=== PATIENT | male | born 1930 | race Caucasian/White ===

== ENCOUNTER 2016-11-05 13:15 | Inpatient (IN) | payer OTHER, MEDICARE ==
[~2016-11-05] VITALS: Ht 177.8 cm; Wt 72.3 kg
[~2016-11-05 13:15] MED LIST: ASPI325T PO; ATEN-102 PO; DILT60TA33 PO; LORTA5 PO; LOVA20TA PO; MILKSUS5 PO
[2016-11-05 13:29] VITALS: BP 152/69; PULSE 68; RESP 17; TEMP 98.2; O2SAT 96
[2016-11-05] MEDS ORDERED: PLAV75TA29 PO (13:39)
[2016-11-05] MEDS ORDERED: PRAV20TA2 PO (13:39)
[2016-11-05] MEDS ORDERED: AMLO5TAB2 PO (13:39)
[2016-11-05] MEDS ORDERED: ASPI325T PO (13:39)
[2016-11-05] MEDS ORDERED: ASPIRIN 81 MG CHEW TAB PO ONE (13:45)
[2016-11-05] MEDS ORDERED: SODIUM CHLORIDE 0.9% FLUSH 5 ML FLUSH IVF PRN ×2 (13:45→14:30)
--- NOTE | 2016-11-05 13:45 | PD ---
HPI Chief Complaint: Chest Pain Time Seen by Provider: 13:30 Travel History International Travel<30 days: No Contact w/Intl Traveler<30days: No Traveled to known affect area: No History of Present Illness HPI This patient complains of chest pain. He's had chest pain most days for the last 3 weeks. Location is low sternum in the center of the chest. Feels like an aching pressure. He is currently pain-free. Saw his primary physician today who sent him to the ER specifically called over to have him hospitalized for stress testing. He has not had any recent cardiac testing. Symptoms severity is moderate. No alleviating factors. PFSH Past Medical History Heart Rhythm Problems: No Cancer: No Cardiovascular Problems: Yes (AAA, BRADYCARDIA, CAROTID STENOSIS) High Cholesterol: Yes Chest Pain: No Congestive Heart Failure: No Cerebrovascular Accident: Yes Coronary Artery Disease: Yes Diabetes: No Diminished Hearing: Yes ([place]) Endocrine: No Gastrointestinal Disorders: Yes Genitourinary: No Hypertension: Yes Medical other: Yes (PVD, INCREASED BLOOD SUGARS, INSOMNIA) Musculoskeletal: No Neurologic: Yes Psychiatric: No Reproductive: No Respiratory: No Migraines: No Seizures: No Thyroid Disease: No Ulcer: No Tetanus Vaccination: > 5 Years Influenza Vaccination: Yes Past Surgical History Abdominal Surgery: Yes (APPY) Appendectomy: Yes Cardiac Surgery: Yes (CAROTID ARTERY SX RIGHT) Ear Surgery: No Eye Surgery: No Genitourinary Surgery: No Oral Surgery: No Pacemaker: No Thoracic Surgery: No Other Surgery: Yes Social History Alcohol Use: Yes (occasional beer) Tobacco Use: No (1987 QUIT) Substance Use: No Allergies-Medications (Allergen,Severity, Reaction): Coded Allergies: No Known Allergies (Unverified , 11/05/16) Reported Meds & Prescriptions Reported Meds & Active Scripts Active Reported Pravastatin 20 Mg Tab 20 Mg PO DAILY Plavix (Clopidogrel Bisulfate) 75 Mg Tab 75 Mg PO DAILY Aspirin 325 Mg Tab 325 Mg PO DAILY Amlodipine (Amlodipine Besylate) 5 Mg Tab 5 Mg PO DAILY Review of Systems General / Constitutional: No: Fever Eyes: No: Visual changes HENT: No: Headaches Cardiovascular: Positive: Chest Pain or Discomfort Respiratory: No: Shortness of Breath Gastrointestinal: No: Abdominal Pain Genitourinary: No: Dysuria Musculoskeletal: No: Pain Skin: No Rash Neurologic: No: Weakness Psychiatric: No: Depression Endocrine: No: Polydipsia Hematologic/Lymphatic: No: Easy Bruising Physical Exam Narrative GENERAL: Well-nourished, well-developed patient in no apparent distress. SKIN: Warm and dry. HEAD: Atraumatic. Normocephalic. EYES: Pupils equal and round. No scleral icterus. No injection or drainage. ENT: No nasal bleeding or discharge. Mucous membranes pink and moist. NECK: Trachea midline. No JVD. CARDIOVASCULAR: Regular rate and rhythm. No murmur appreciated. RESPIRATORY: No accessory muscle use. Clear to auscultation. Breath sounds equal bilaterally. GASTROINTESTINAL: Abdomen soft, non-tender, nondistended. Hepatic and splenic margins not palpable. MUSCULOSKELETAL: No obvious deformities. No clubbing. No cyanosis. No edema. NEUROLOGICAL: Awake and alert. No obvious cranial nerve deficits. Motor grossly within normal limits. Normal speech. PSYCHIATRIC: Appropriate mood and affect; insight and judgment normal. Data Data Last Documented VS Vital Signs Date Time Temp Pulse Resp B/P Pulse Ox O2 Delivery O2 Flow Rate FiO2 11/05/16 13:47 96 Room Air 11/05/16 13:29 98.2 68 17 152/69 Orders Basic Metabolic Panel (Bmp) (11/05/16 13:34) Ckmb (Isoenzyme) Profile (11/05/16 13:34) Complete Blood Count With Diff (11/05/16 13:34) Prothrombin Time / Inr (Pt) (11/05/16 13:34) Act Partial Throm Time (Ptt) (11/05/16 13:34) Troponin I (11/05/16 13:34) Chest, Single Ap (11/05/16 13:34) Ecg Monitoring (11/05/16 13:34) Iv Access Insert/Monitor (11/05/16 13:34) Oximetry (11/05/16 13:34) Aspirin Chew (Aspirin Chew) (11/05/16 13:45) Sodium Chloride 0.9% Flush (Ns Flush) (11/05/16 13:45) Place In Observation (11/05/16 14:25) Activity Bed Rest With Brp (11/05/16 14:25) Vital Signs (Adult) Q4H (11/05/16 14:25) Cardiac Rhythm .As Directed (11/05/16 14:25) ^ Notify Dr: Other .PRN (11/05/16 14:25) ^ Notify Dr. Parameters (11/05/16 14:25) Resp Oxygen Nasal Cannula (11/05/16 ) Diet Heart Healthy (11/05/16 Dinner) Ckmb (Isoenzyme) Profile (11/05/16 16:40) Ckmb (Isoenzyme) Profile (11/05/16 19:40) Troponin I (11/05/16 16:40) Troponin I (11/05/16 19:40) Electrocardiogram (11/05/16 16:40) Electrocardiogram (11/05/16 19:40) ^ Obtain (11/05/16 14:25) Sodium Chloride 0.9% Flush (Ns Flush) (11/05/16 14:30) Sodium Chloride 0.9% Flush (Ns Flush) (11/05/16 21:00) Acetaminophen (Tylenol) (11/05/16 14:30) Acetamin-Hydrocod 325-7.5 Mg ([place] 7.5 (11/05/16 14:30) Morphine Inj (Morphine Inj) (11/05/16 14:30) Ondansetron Inj (Zofran Inj) (11/05/16 14:30) Nitroglycerin Sl (Nitrostat Sl) (11/05/16 14:30) Aspirin (Aspirin) (11/06/16 09:00) Temazepam (Restoril) (11/05/16 14:30) Scd Bilateral/Knee High YESSI.BID (11/05/16 14:25) Bart Bilateral/Knee High YESSI.QSHIFT (11/05/16 14:25) Npo After Midnight W/ Po Meds (11/06/16 Breakfast) Admit Order (Ed Use Only) (11/05/16 14:26) Admit Order (Ed Use Only) (11/05/16 14:29) Labs Laboratory Tests Test 11/05/16 13:40 White Blood Count 8.1 TH/MM3 Red Blood Count 4.63 MIL/MM3 Hemoglobin 13.7 GM/DL Hematocrit 41.2 % Mean Corpuscular Volume 88.9 FL Mean Corpuscular Hemoglobin 29.7 PG Mean Corpuscular Hemoglobin 33.3 % Concent Red Cell Distribution Width 12.7 % Platelet Count 215 TH/MM3 Mean Platelet Volume 9.6 FL Neutrophils (%) (Auto) 73.1 % Lymphocytes (%) (Auto) 16.6 % Monocytes (%) (Auto) 8.0 % Eosinophils (%) (Auto) 1.7 % Basophils (%) (Auto) 0.6 % Neutrophils # (Auto) 6.1 TH/MM3 Lymphocytes # (Auto) 1.3 TH/MM3 Monocytes # (Auto) 0.6 TH/MM3 Eosinophils # (Auto) 0.1 TH/MM3 Basophils # (Auto) 0.0 TH/MM3 CBC Comment DIFF FINAL Differential Comment Prothrombin Time 9.9 SEC Prothromb Time International 0.9 RATIO Ratio Activated Partial 26.0 SEC Thromboplast Time Sodium Level 143 MEQ/L Potassium Level 4.0 MEQ/L Chloride Level 107 MEQ/L Carbon Dioxide Level 28.7 MEQ/L Anion Gap 7 MEQ/L Blood Urea Nitrogen 13 MG/DL Creatinine 0.75 MG/DL Estimat Glomerular Filtration 99 ML/MIN Rate Random Glucose 83 MG/DL Calcium Level 8.4 MG/DL Total Creatine Kinase 74 U/L Troponin I LESS THAN 0.02 NG/ML [facility] Medical Decision Making Medical Screen Exam Complete: Yes Emergency Medical Condition: Yes Medical Record Reviewed: Yes Differential Diagnosis Differential diagnosis includes NM, angina, pericarditis, pleurisy, GERD, anxiety. Narrative Course I have reviewed the patient's electronic medical record. Reviewed his physicians history and physical from today IV placed I reviewed the EKG which shows sinus rhythm but no ST elevation I reviewed the chest x-ray shows no emergent findings Extended cardiac monitoring shows sinus rhythm without ectopy CBC is normal Metabolic profile is normal CK is normal Troponin is normal Coagulation studies are normal He took full strength aspirin earlier today He'll be a 23 hour observation in the chest pain center to rule out cardiac cause of his symptoms. I reviewed the hospitalist who agrees Diagnosis Primary Impression: Precordial chest pain Admitting Information Admitting Physician Requests: Observation Sohail Wright MD Nov 05, 2016 13:45
[2016-11-05 13:46] LABS: AUTOMATED NEUTROPHIL # 6.1 TH/MM3 (1.8-7.7); BASOPHIL % 0.6 % (0.0-2.0); EOSINOPHIL # 0.1 TH/MM3 (0-0.4); EOSINOPHIL % 1.7 % (0.0-4.0); HEMATOCRIT 41.2 % (39.0-51.0); HEMO FLAGS DIFF FINAL; LYMPH % 16.6 % (9.0-44.0); LYMPHOCYTE # 1.3 TH/MM3 (1.0-4.8); MEAN CELL VOLUME 88.9 FL (80.0-100.0); MEAN CORPUSCULAR HEMOGLOBIN 29.7 PG (27.0-34.0); MEAN CORPUSCULAR HGB CONC 33.3 % (32.0-36.0); NEUT % 73.1 % (16.0-70.0); PLATELET COUNT 215 TH/MM3 (150-450); RED BLOOD COUNT 4.63 MIL/MM3 (4.50-5.90); RED CELL DISTRIBUTION WIDTH 12.7 % (11.6-17.2); WHITE BLOOD COUNT 8.1 TH/MM3 (4.0-11.0)
[2016-11-05 13:47] VITALS: O2SAT 96
[2016-11-05 13:53] LABS: CHLORIDE 107 MEQ/L (98-107); SODIUM (NA) 143 MEQ/L (136-145)
[2016-11-05 13:56] LABS: ANION GAP 7 MEQ/L (5-15); BICARBONATE 28.7 MEQ/L (21.0-32.0); BLOOD UREA NITROGEN 13 MG/DL (7-18)
[2016-11-05 13:58] LABS: INTERNATIONAL NORMALIZED RATIO 0.9 RATIO; PROTHROMBIN TIME - PATIENT 9.9 SEC (9.8-11.6)
[2016-11-05 13:59] LABS: GLOMERULAR FILTRATION RATE 99 ML/MIN (>89)
[2016-11-05 14:07] LABS: CREATINE KINASE 74 U/L (39-308)
--- NOTE | 2016-11-05 14:09 | RADHPO ---
EXAM DATE/TIME: 11/05/2016 14:03 [facility] COMPARISON: CHEST SINGLE AP, October 22, 2013, 12:48. INDICATIONS : Short of breath MEDICAL HISTORY : None. SURGICAL HISTORY : None. ENCOUNTER: Initial ACUITY: 3 days PAIN SCORE: 3/10 LOCATION: Bilateral chest FINDINGS: A single view of the chest demonstrates the lungs to be symmetrically aerated without evidence of mas s, infiltrate or effusion. The lungs are hyperaerated. Questionable nipple shadow projects over the r ight lower lung. The cardiomediastinal contours are unremarkable. Osseous structures are intact. CONCLUSION: 1. No acute pulmonary infiltrates. 2. Possible nipple shadow projected over the right lower lung. If clinically indicated, recommend a f ollowup two-view chest x-ray with nipple markers Rex Linn MD on November 05, 2016 at 14:06 Board Certified Radiologist. This report was verified electronically.
[2016-11-05] MEDS ORDERED: ONDANSETRON HCL 4 MG/2 ML VIAL IV PRN (14:30)
[2016-11-05] MEDS ORDERED: ACETAMINOPHEN/HYDROcodone 325 MG/7.5 MG TAB PO PRN (14:30)
[2016-11-05] MEDS ORDERED: MORPHINE SULFATE 4 MG/ML INJ IV PRN (14:30)
[2016-11-05] MEDS ORDERED: TEMAZEPAM 15 MG CAP PO PRN (14:30)
[2016-11-05] MEDS ORDERED: ACETAMINOPHEN 500 MG CPLT PO PRN (14:30)
[2016-11-05] MEDS ORDERED: NITROGLYCERIN 0.4 MG SL 25 TABS/BTL SL PRN (14:30)
[2016-11-05 15:31] VITALS: BP 141/64; PULSE 71; RESP 17; O2SAT 98
[2016-11-05 17:51] LABS: CREATINE KINASE 74 U/L (39-308)
--- NOTE | 2016-11-05 18:28 | HHI.HP ---
[facility]ician Zacarias Michael Do, MD Admission Diagnosis chest pain Diagnoses: (1) Chest pain Diagnosis: Principal (2) Hypertension Diagnosis: Secondary (3) Hyperlipidemia Diagnosis: Secondary Chief Complaint: Chest pain Travel History International Travel<30 Days: No Contact w/Intl Traveler <30 Da: No Traveled to Known Affected Are: No History of Present Illness 86 year-old Arabic male with known history of hypertension, carotid stenosis, history of stroke, peripheral vascular disease, hyperlipidemia who presented to hospital at the request of his primary medical doctor because of chest discomfort. Patient was at his doctor's office today for his normal check up. He notified his primary medical doctor that is been having pain in his chest for over the last 2-3 weeks. He describes it as a sharp pain in the middle part of his chest/epigastric region. Lasting for a couple seconds at a time. He states that it can happen when he is exerting himself. His has happened why he is lying down. He denies any nausea, vomiting, diaphoresis, shortness of breath, dyspnea. Because of the patient's risk factors his primary medical doctor sent him to the hospital to get a stress test. Patient did come to emergency department and because of that patient's primary doctors request was recommended observation chest pain center. At the time evaluating the patient he is asymptomatic. Review of Systems Constitutional: DENIES: Diaphoretic episodes, Fatigue, Fever, Weight gain, Weight loss, Chills, Change in appetite, Night Sweats Eyes: DENIES: Blurred vision, Diplopia, Eye inflammation, Eye pain, Vision loss , Double Vision Ears, nose, mouth, throat: DENIES: Vertigo, Nasal discharge, Throat pain, Ear Pain, Running Nose, Sinus Pain Respiratory: DENIES: Apneas, Cough, Snoring, Wheezing, Hemoptysis, Sputum production, Shortness of breath Cardiovascular: COMPLAINS OF: Chest pain, DENIES: Palpitations, Syncope, Dyspnea on Exertion, Lower Extremity Edema, Orthopnea Gastrointestinal: DENIES: Abdominal pain, Black stools, Bloody stools, Constipation, Diarrhea, Nausea, Vomiting, Difficulty Swallowing, Anorexia Neurologic: DENIES: Abnormal gait, Headache, Localized weakness, Paresthesias, Seizures, Speech Problems, Tremor, Poor Balance Psychiatric: DENIES: Anxiety, Confusion, Mood changes, Depression Past Family Social History Past Medical History Hypertension Hyperlipidemia Carotid stenosis History of stroke Abdominal aortic aneurysm Peripheral vascular disease Past Surgical History Appendectomy Carotid endarterectomy right side Reported Medications Reported Meds & Active Scripts Active Reported Pravastatin 20 Mg Tab 20 Mg PO DAILY Plavix (Clopidogrel Bisulfate) 75 Mg Tab 75 Mg PO DAILY Aspirin 325 Mg Tab 325 Mg PO DAILY Amlodipine (Amlodipine Besylate) 5 Mg Tab 5 Mg PO DAILY Allergies: Coded Allergies: No Known Allergies (Unverified , 11/05/16) Family History Reviewed and patient states that family lived into their 90s. Social History Patient quit smoking in 1986, he states that 10 pack a cigarettes a last him a week ever since he was 17 years old. Denies any alcohol or illicit drugs. Physical Exam Vital Signs Vital Signs Date Time Temp Pulse Resp B/P Pulse Ox O2 Delivery O2 Flow Rate FiO2 11/05/16 17:23 Room Air 11/05/16 15:31 71 17 141/64 98 Room Air 11/05/16 13:47 96 Room Air 11/05/16 13:29 98.2 68 17 152/69 96 Room Air Physical Exam GENERAL: Well-developed, well-nourished, in no acute distress. alert and orientated HEENT: Head is normocephalic without any lesions or masses noted. Facial features are symmetric. Eyes: Pupils equal round reactive to light. Extraocular muscles are intact. Conjunctivae were clear. Oropharyngeal: Pharynx without any erythema edema. Tongue is midline without deviation. Buccal mucosa is moist without any masses or lesions NECK: Supple without any masses. Trachea midline no deviation. No JVD, no bruits are appreciated CARDIAC: Regular rhythm, regular rate. S1/S2 are heard. No murmurs gallops or rubs. LUNGS: Clear to auscultation bilaterally. No wheeze, rhonchi or rales. No use of accessory muscles on inspiration or expiration. ABDOMEN: Soft, nontender. Nondistended. Bowel sounds heard in all 4 quadrants. No organomegaly or masses. Negative rebound, negative guarding EXTREMITIES: No edema, pulses are equal bilaterally. No cyanosis or clubbing NEUROLOGY: Mood and affect appear appropriate. Cranial nerves II through XII grossly intact. Muscle strength 5/5 in upper and lower extremities bilaterally. Deep tendon reflexes are 2+ in upper and lower extremities bilaterally. Laboratory Laboratory Tests Test 11/05/16 11/05/16 13:40 17:15 White Blood Count 8.1 Red Blood Count 4.63 Hemoglobin 13.7 Hematocrit 41.2 Mean Corpuscular Volume 88.9 Mean Corpuscular Hemoglobin 29.7 Mean Corpuscular Hemoglobin 33.3 Concent Red Cell Distribution Width 12.7 Platelet Count 215 Mean Platelet Volume 9.6 Neutrophils (%) (Auto) 73.1 Lymphocytes (%) (Auto) 16.6 Monocytes (%) (Auto) 8.0 Eosinophils (%) (Auto) 1.7 Basophils (%) (Auto) 0.6 Neutrophils # (Auto) 6.1 Lymphocytes # (Auto) 1.3 Monocytes # (Auto) 0.6 Eosinophils # (Auto) 0.1 Basophils # (Auto) 0.0 CBC Comment DIFF FINAL Differential Comment Prothrombin Time 9.9 Prothromb Time International 0.9 Ratio Activated Partial 26.0 Thromboplast Time Sodium Level 143 Potassium Level 4.0 Chloride Level 107 Carbon Dioxide Level 28.7 Anion Gap 7 Blood Urea Nitrogen 13 Creatinine 0.75 Estimat Glomerular Filtration 99 Rate Random Glucose 83 Calcium Level 8.4 Total Creatine Kinase 74 74 Troponin I LESS THAN 0.02 LESS THAN 0.02 Result Diagram: 11/05/16 1340 11/05/16 1340 Imaging Last Impressions Chest X-Ray 11/05/16 1334 Signed Impressions: Service Date/Time: Saturday, November 05, 2016 14:03 - CONCLUSION: 1. No acute pulmonary infiltrates. 2. Possible nipple shadow projected over the right lower lung. If clinically indicated, recommend a followup two-view chest x-ray with nipple markers Rex Linn MD Assessment and Plan Assessment and Plan Chest pain, atypical Patient with increased risk factors to include age, male, hypertension, hyperlipidemia, history of tobacco use We'll order and monitor serial cardiac enzymes rule out any acute coronary event Continue monitor serial EKGs for any changes Continue aspirin and nitroglycerin as needed We'll pursue nuclear stress test in the morning to rule out any underlying ischemia Hypertension Continue home medications Hyperlipidemia Continue statin DVT prevention Sequential compression devices Written by Sohail Maguire PA-C, acting as scribe for Dr. Sims on 11/05/16 at 1800. The documentation accurately reflects the work and decisions performed face-to- face by Dr. Sims on 11/05/16 at 1800. Problem Qualifiers (1) Chest pain: Qualified Code: R07.2 - Precordial pain (2) Hypertension: Qualified Code: I15.9 - Secondary hypertension (3) Hyperlipidemia: Qualified Code: E78.5 - Hyperlipidemia, unspecified hyperlipidemia type Sohail Maguire Nov 05, 2016 18:28
[2016-11-05 20:00] VITALS: BP 148/63; PULSE 66; PULSE 69; RESP 18; TEMP 96.3; O2SAT 97
[2016-11-05 20:30] LABS: CREATINE KINASE 81 U/L (39-308)
[2016-11-05] MEDS: SODIUM CHLORIDE 0.9% FLUSH 5 ML FLUSH IVF SCH (20:32)
[2016-11-06] VITALS (9 sets, daily range): BP systolic 123–155; BP diastolic 65–73; PULSE 59–73; RESP 16–20; TEMP 96.3–97.6; O2SAT 95–98
[2016-11-06] MEDS ORDERED: REGADENOSON INJ 0.4 MG/5 ML SYR IV ONE (09:35)
[2016-11-06] MEDS: SODIUM CHLORIDE 0.9% FLUSH 5 ML FLUSH IVF SCH ×2 (10:26→21:29)
[2016-11-06] MEDS: ASPIRIN 325 MG TAB PO SCH (10:26)
[2016-11-06] MEDS: CLOPIDOGREL 75 MG TAB PO SCH (10:26)
[2016-11-06] MEDS: PRAVASTATIN SOD 20 MG TAB PO SCH (10:26)
[2016-11-06] MEDS: amLODIPine BESYLATE 5 MG TAB PO SCH (10:27)
--- NOTE | 2016-11-06 10:52 | RADHPO ---
EXAM DATE/TIME: 11/06/2016 09:43 [facility] COMPARISON: MYOCARDIAL PERF PHARM SPECT, GATED W/EF, October 26, 2013, 9:08. CHEST SINGLE AP, November 05, 2016, 14:03. INDICATIONS : Mid chest pain for two weeks. Angina. DOSE: 26.1 mCi Tc99m Myoview at stress. 8.5 mCi Tc99m Myoview at rest. 0.4 mg Lexiscan STRESS SYMPTOMS: Shortness of breath. EJECTION FRACTION: 31% MEDICAL HISTORY : Aneurysm, abdominal. Hypertension. Stroke. SURGICAL HISTORY : Appendectomy. Carotid endarterectomy. ENCOUNTER: Initial ACUITY: 2 weeks PAIN SCALE: 4/10 LOCATION: Midsternal chest TECHNIQUE: The patient underwent pharmacologic stress with infusion of prescribed dose. Continuous ECG tracing was monitored during stress. Gated SPECT imaging was performed after stress and conventional SPECT i maging was performed at rest. The examination was performed on a SPECT/CT scanner, both attenuation and non-corrected datasets were reviewed. FINDINGS: DISTRIBUTION: The maximum perfused segment at stress is in the septal wall. PERFUSION STUDY: Areas of summed stress score of 11. There is a moderate sized partially reversible anterior and apica l wall defect. GATED STUDY: Akinesis involving the apex and distal anterior wall. CONCLUSION: 1. Moderate sized partially reversible defect involving the anterior and apical kinsey. 2. Akinesis involving the distal anterior and apical kinsey with decreased calculated ejection fractio n of 31%. RISK CATEGORY: Intermediate (1-3% Annual Mortality Rate) Bk Salazar MD on November 06, 2016 at 10:45 Board Certified Radiologist. This report was verified electronically.
--- NOTE | 2016-11-06 11:17 | HHI.PR ---
Subjective Remarks Patient seen and examined today. Patient denies any recurrent chest pain. Objective Vitals Vital Signs Date Time Temp Pulse Resp B/P Pulse Ox O2 Delivery O2 Flow Rate FiO2 11/06/16 10:30 61 11/06/16 08:00 97.6 73 18 138/73 96 11/06/16 04:00 96.3 70 18 127/70 96 11/06/16 00:00 96.6 71 18 123/68 96 11/05/16 20:00 69 11/05/16 20:00 96.3 66 18 148/63 97 11/05/16 17:23 Room Air 11/05/16 15:31 71 17 141/64 98 Room Air 11/05/16 13:47 96 Room Air 11/05/16 13:29 98.2 68 17 152/69 96 Room Air I/O 11/05/16 11/05/16 11/05/16 11/06/16 11/06/16 11/06/16 07:00 15:00 23:00 07:00 15:00 23:00 Intake Total 100 ml Balance 100 ml Intake Oral 100 ml Result Diagram: 11/05/16 1340 11/05/16 1340 Objective Remarks GENERAL: Well-developed, well-nourished, in no acute distress. alert and orientated HEENT: Head is normocephalic without any lesions or masses noted. Facial features are symmetric. Eyes: Extraocular muscles are intact. Conjunctivae were clear. NECK: Supple without any masses. Trachea midline no deviation. No JVD, CARDIAC: Regular rhythm, regular rate. S1/S2 are heard. No murmurs gallops or rubs. LUNGS: Clear to auscultation bilaterally. No wheeze, rhonchi or rales. No use of accessory muscles on inspiration or expiration. ABDOMEN: Soft, nontender. Nondistended. Bowel sounds heard in all 4 quadrants. No organomegaly or masses. Negative rebound, negative guarding EXTREMITIES: No edema, pulses are equal bilaterally. No cyanosis or clubbing NEUROLOGY: Mood and affect appear appropriate. Cranial nerves II through XII grossly intact. Moving all extremities, speech is clear Urinary Catheter: No Vascular Central Line Catheter: No A/P Assessment and Plan Chest pain, atypical Patient with increased risk factors to include age, male, hypertension, hyperlipidemia, history of tobacco use Serial cardiac enzymes were performed and reviewed by myself which did not indicate any acute coronary event Serial EKGs were performed which were reviewed and show sinus rhythm without any changes Continue aspirin and nitroglycerin as needed Nuclear stress test was performed which did indicate a moderate size partially reversible defect involving the anterior and apical kinsey. Akinesis involving the distal anterior apical wall with decreased ejection fraction 31%. Intermediate risk Discussed stress test findings with patient, he is deferring any invasive procedures at this time. He would like to follow-up with his primary medical doctor to have outpatient referral to his 's patient day coordinator Dr. Costa for further evaluation and management. Discuss with patient's primary medical doctor Dr. Michael, who indicates that the patient should remain in the hospital to receive cardiology consultation and workup while he is here. If he does not want to do so then she indicates that the patient should sign out AGAINST MEDICAL ADVICE. Consult cardiology for further recommendations and possible intervention Hypertension Continue home medications Hyperlipidemia Continue statin DVT prevention Sequential compression devices Written by Sohail Maguire PA-C, acting as scribe for Dr. Tapia on 11/06/16 at 1200. The documentation accurately reflects the work and decisions performed face-to- face by Dr. Tapia on 11/06/16 at 1200. I (DR. TAPIA) DISCUSSED AGAIN WITH PATIENT AROUND 2 P.M. ON 11/06 AND SHOWED HIM HIS STRESS TEST, EXPLAINED HE HAD LIKELY ALREADY HAD A HEART ATTACK IN THE PAST, THAT THERE IS POSSIBILITY OF PREVENTING ANOTHER ONE WITH CARDIAC CATH AND STENT, BUT THIS CAN ONLY BE DONE AT THE [facility]. REGARDLESS HE NEEDS CARDIOLOGY CONSULTATION. PATIENT NOW AGREES TO SEEING CARDIOLOGY FOR CONSIDERATION OF CATH. PAGE PLACED TO DR. MIKE LEROY WHO IS DISABILITY BENEFITS SPECIALIST, PATIENT FOR TRANSFER TO [facility]. Sohail Maguire Nov 06, 2016 11:17 Zahida Tapia MD Nov 07, 2016 09:27
--- NOTE | 2016-11-06 21:07 | EKG ---
Date Performed: 11/05/2016 Time Performed: 19:55:50 PTAGE: 86 years EKG: Sinus rhythm . Normal ECG PREVIOUS TRACING : 11/05/2016 17.21 DOCTOR: Rikki Rhodes Interpretating Date/Time 11/06/2016 21:03:08
--- NOTE | 2016-11-06 21:12 | EKG ---
Date Performed: 11/05/2016 Time Performed: 17:21:46 PTAGE: 86 years EKG: Sinus rhythm with PAC(s). Extensive ST-T changes are nonspecific Borderline ECG PREVIOUS TRACING : 11/05/2016 13.20 DOCTOR: Rikki Rhodes Interpretating Date/Time 11/06/2016 21:05:36
--- NOTE | 2016-11-06 21:20 | EKG ---
Date Performed: 11/05/2016 Time Performed: 13:20:02 PTAGE: 86 years EKG: Sinus rhythm . Inferior/lateral T wave changes are nonspecific Borderline ECG PREVIOUS TRACING : 10/23/2013 01.21 DOCTOR: Rikki Rhodes Interpretating Date/Time 11/06/2016 21:10:17
[2016-11-07] VITALS (9 sets, daily range): BP systolic 129–153; BP diastolic 60–75; PULSE 64–92; RESP 16–18; TEMP 97.2–97.7; O2SAT 93–98
[2016-11-07] MEDS: CLOPIDOGREL 75 MG TAB PO SCH (09:06)
[2016-11-07] MEDS: SODIUM CHLORIDE 0.9% FLUSH 5 ML FLUSH IVF SCH ×3 (09:06→21:00)
[2016-11-07] MEDS: PRAVASTATIN SOD 20 MG TAB PO SCH (09:06)
[2016-11-07] MEDS: amLODIPine BESYLATE 5 MG TAB PO SCH (09:06)
[2016-11-07] MEDS: ASPIRIN 325 MG TAB PO SCH (09:06)
--- NOTE | 2016-11-07 09:56 | MB ---
cc: TIM VARGAS DO DATE OF CONSULTATION: 11/07/2016 REASON FOR CONSULTATION Chest pain with abnormal stress test. HISTORY OF PRESENT ILLNESS Naveen Cedeno is a pleasant 86-year-old male who presented to [facility] in [place] on November 05, 2016 due to chest pain. He originally told his primary care physician that he had chest pain on and off for 2-3 weeks. He describes it is a sharp pain in the middle of his chest lasting seconds to occasionally a minute. He states that it can happen at any time including when he exerts himself for when he is lying down. He denies nausea, vomiting, diaphoresis, shortness of breath with the pain. Because of his risk factors his primary care physician requested a stress test. While he was in [place] he underwent a pharmacologic nuclear stress test which showed a moderate size partially reversible defect involving the anterior and apical kinsey, akinesis involving the distal anterior and apical kinsey with an ejection fraction of 31% read as an intermediate risk stress test. At that time there was a question on whether he would like to have any intervention done and at that time he felt that he could follow-up with his 's integration director, Dr. Costa, for further evaluation and management. When they discussed with the patient's primary care physician about this option she said that he would have to leave against medical advice. He decided that he would be transferred to the [facility] for possible cardiology consult to discuss his options. I saw the patient this morning and he was no longer having chest pain at that time. PAST MEDICAL HISTORY 1. Hypertension. 2. Hyperlipidemia. 3. Carotid stenosis. 4. History of stroke. 5. Abdominal aortic aneurysm. 6. Peripheral vascular disease. PAST SURGICAL HISTORY 1. Appendectomy. 2. Right-sided carotid endarterectomy. ALLERGIES No known drug allergies. MEDICATIONS 1. Aspirin 325 mg daily. 2. Plavix 75 mg daily. 3. Pravastatin 20 mg daily. 4. Norvasc 5 mg daily. FAMILY HISTORY Denies premature coronary artery disease or sudden cardiac within the family. SOCIAL HISTORY The patient states that he previously smoked starting at the age of 17 then quit in 1986. He denies alcohol or illicit drug abuse. REVIEW OF SYSTEMS 14 systems were reviewed including osteopathic. Pertinent positives and negatives as above, otherwise negative. PHYSICAL EXAMINATION VITAL SIGNS: Temperature 97.3, heart rate 70, blood pressure 131/74, respirations 16, pulse ox 97% on room air. GENERAL: In general the patient appears well and in no acute distress, alert, awake and oriented x3. HEENT: Extraocular muscles intact. Mucous membranes are moist. NECK: Supple. No JVD at 45 degrees. No carotid bruits heard bilaterally. Carotid upstroke is brisk in nature. HEART: Regular rate and rhythm. Positive first and second heart sounds. No murmurs, gallops or rubs. PMI is nondisplaced. LUNGS: Clear to auscultation bilaterally. No wheezes, rales or rhonchi. ABDOMEN: Soft, nontender, nondistended. No organomegaly noted. EXTREMITIES: No clubbing, cyanosis or edema. Femoral and distal pulses intact bilaterally. NEUROLOGIC: No focal deficits. SKIN: Warm, dry and intact. MUSCULOSKELETAL: Osteopathically no kyphoscoliosis, lordosis or paraspinal tender points. LABORATORY FINDINGS Hemoglobin 13.7, hematocrit 41.2, platelets 215. Potassium 4.0, BUN 13, creatinine 0.75. Troponin negative x3. Pharmacologic nuclear stress test (November 06, 2016): Moderate size partially reversible defect involving the anterior and apical kinsey, akinesis of the distal anterior and apical kinsey, ejection fraction 31%, read as an intermediate risk stress test. Electrocardiogram (November 05, 2016 at 1955): Sinus rhythm at 62 beats per minute, no significant ST or T-wave changes. IMPRESSIONS 1. Atypical chest pain for coronary insufficiency, although the patient has had episodes with exertion. 2. Abnormal pharmacologic nuclear stress test (November 06, 2016) with a moderate size partially reversible defect involving the anterior and apical kinsey, akinesis of these wall, ejection fraction 31%. 3. History of hypertension. 4. History of hyperlipidemia. 5. Peripheral artery disease with a history of carotid stenosis status post right-sided carotid endarterectomy. 6. History of stroke. 7. Abdominal aortic aneurysm of unknown size. 8. Remote tobacco abuse. RECOMMENDATIONS 1. Naveen Cedeno presented with chest pain and underwent a pharmacologic nuclear stress test showing an intermediate risk stress test and anterior and apical possible ischemia. 2. I did speak to him at length about his options including medical management versus undergoing cardiac catheterization to define his coronary anatomy. He is agreeable to undergo cardiac catheterization and possible intervention if needed. 3. He understands the risks, benefits and alternatives and signed consent as such. 4. He will be n.p.o. this morning and undergo cardiac catheterization later today. 5. Further recommendations will be made based on coronary visualization. Thank you for allowing me to see Naveen Cedeno. If there are any questions, please do not hesitate to call. Tim Vargas DO VGP/BT /9:04 AM /9:39 AM
--- NOTE | 2016-11-07 09:57 | HHI.PR ---
Subjective Remarks resting comfortably with no distress. had some chest pain last night which has resolved. has slight dizziness. Objective Vitals Vital Signs Date Time Temp Pulse Resp B/P Pulse Ox O2 Delivery O2 Flow Rate FiO2 11/07/16 04:09 97.3 70 16 131/74 97 11/07/16 00:16 93 11/06/16 23:44 97.2 73 16 155/68 98 11/06/16 20:38 59 11/06/16 20:13 97.1 62 18 138/65 95 11/06/16 19:26 96 11/06/16 12:00 97.5 72 20 133/72 97 11/06/16 10:30 61 I/O 11/06/16 11/06/16 11/06/16 11/07/16 11/07/16 11/07/16 07:00 15:00 23:00 07:00 15:00 23:00 Intake Total 310 ml 0 ml Output Total 100 ml Balance 310 ml -100 ml Intake Oral 310 ml 0 ml Output Urine Total 100 ml # Bowel Movements 0 Result Diagram: 11/05/16 1340 11/05/16 1340 Imaging Last Impressions Myocardial Perfusion Scan Nuc Med 11/06/16 0600 Signed Impressions: Service Date/Time: October 09:43 - CONCLUSION: 1. Moderate sized partially reversible defect involving the anterior and apical kinsey. 2. Akinesis involving the distal anterior and apical kinsey with decreased calculated ejection fraction of 31%%. RISK CATEGORY: Intermediate (1-3%% Annual Mortality Rate) Bk Salazar MD Chest X-Ray 11/05/16 1334 Signed Impressions: Service Date/Time: Saturday, November 05, 2016 14:03 - CONCLUSION: 1. No acute pulmonary infiltrates. 2. Possible nipple shadow projected over the right lower lung. If clinically indicated, recommend a followup two-view chest x-ray with nipple markers Rex Linn MD Objective Remarks GENERAL: This is a well-nourished, well-developed patient, in no apparent distress. CARDIOVASCULAR: Regular rate and regular rhythm without murmurs, gallops, or rubs. RESPIRATORY: Clear to auscultation. Breath sounds equal bilaterally. No wheezes , rales, or rhonchi. GASTROINTESTINAL: Abdomen soft, non-tender, nondistended. Normal, active bowel sounds MUSCULOSKELETAL: Extremities without clubbing, cyanosis, or edema. NEURO: Alert & Oriented x4 to person, place, time, situation. Moves all ext x4 Procedures none Medications and IVs Current Medications Aspirin (Aspirin Chew) 162 mg ONCE ONCE PO ; Start 11/05/16 at 13:45; Stop at 13:45; Status DC IV Flush (NS Flush) 2 ml UNSCH PRN IVF FLUSH AFTER USING IV ACCESS; Start 11/05 at 13:45; Stop 11/05/16 at 14:39; Status DC IV Flush (NS Flush) 2 ml UNSCH PRN IVF FLUSH AFTER USING IV ACCESS; Start 11/05 at 14:30 IV Flush (NS Flush) 2 ml BID IVF Last administered on 11/07/16 09:06; Start at 21:00 Acetaminophen (Tylenol) 500 mg Q4H PRN PO HEADACHE; Start 11/05/16 at 14:30 Acetaminophen/ Hydrocodone Bitart (Adkins 7.5-325 Mg) 1 tab Q4H PRN PO PAIN SCALE 1 TO 7; Start 11/05/16 at 14:30 Morphine Sulfate (Morphine Inj) 2 mg Q4H PRN IV PAIN SCALE 8 TO 10; Start 11/05 at 14:30 Ondansetron HCl (Zofran Inj) 4 mg Q6H PRN IV NAUSEA; Start 11/05/16 at 14:30 Nitroglycerin (Nitrostat Sl) 0.4 mg Q5M PRN SL CHEST PAIN; Start 11/05/16 at 14 :30 Aspirin (Aspirin) 325 mg DAILY PO Last administered on 11/07/16 09:06; Start 11/06/16 at 09:00 Temazepam (Restoril) 15 mg HS PRN PO INSOMNIA; Start 11/05/16 at 14:30 Amlodipine Besylate (Norvasc) 5 mg DAILY PO Last administered on 11/07/16 09: 06; Start 11/06/16 at 09:00 Clopidogrel Bisulfate (Plavix) 75 mg DAILY PO Last administered on 11/07/16 09 :06; Start 11/06/16 at 09:00 Pravastatin Sodium (Pravachol) 20 mg DAILY PO Last administered on 11/07/16 09 :06; Start 11/06/16 at 09:00 Regadenoson (Lexiscan Inj) 0.4 mg STK-MED ONCE IV Last administered on 09:35; Start 11/06/16 at 09:35; Stop 11/06/16 at 09:36; Status DC A/P Assessment and Plan A/P Chest pain, atypical Patient with increased risk factors to include age, male, hypertension, hyperlipidemia, history of tobacco use Serial cardiac enzymes negative. Continue aspirin and nitroglycerin as needed Nuclear stress test was performed which did indicate a moderate size partially reversible defect involving the anterior and apical kinsey. Akinesis involving the distal anterior apical wall with decreased ejection fraction 31%. Intermediate risk -cardiology consulted- awaiting recommendations. Hypertension Continue home medications Hyperlipidemia Continue statin DVT prevention Sequential compression devices Discharge Planning pending cardiology recommendations. Destiny Hernandez MD Nov 07, 2016 09:57
[2016-11-07] MEDS ORDERED: HEPARIN-NS/PF INJ 500 ML ONE (10:13)
[2016-11-07] MEDS ORDERED: MIDAZOLAM HCL 2 MG/2 ML VIAL ONE (10:15)
[2016-11-07] MEDS ORDERED: HEPARIN SODIUM - IV 10,000 UNITS/10 ML VIAL ONE (10:23)
[2016-11-07] MEDS ORDERED: NITROGLYCERIN INJ 5 ML ONE (10:23)
[2016-11-07] MEDS ORDERED: VERAPAMIL HCL 5 MG/2 ML VIAL ONE (10:24)
[2016-11-07] MEDS ORDERED: SODIUM CHLORIDE 0.9% FLUSH 5 ML FLUSH IVF PRN (11:30)
[2016-11-07] MEDS ORDERED: IOHEXOL 350 MG/ML 50 ML BTL (for Cath Lab) OTHER ONE (11:33)
--- NOTE | 2016-11-07 11:46 | MA ---
cc: TIM VARGAS DO DATE 11/07/2016 PROCEDURE Left heart catheterization, coronary angiogram. PREPROCEDURE DIAGNOSIS Chest pain, abnormal stress test. POSTPROCEDURE DIAGNOSIS Multivessel coronary artery disease. MEDICATIONS 1. Versed 1/2 mg 2. Fentanyl 25 mcg 3. Verapamil 2.5 mg 4. Nitro 200 mcg 5. Heparin 2800 units CONTRAST 40 cc FLUOROSCOPY 3.3 minutes ESTIMATED BLOOD LOSS 10 cc PROCEDURAL SUMMARY Naveen Cedeno is a pleasant 86-year-old male who originally presented to [place] emergency room due to having chest pain. He called his primary care physician who suggested that he have a stress test and presented to the emergency room. His stress test in the emergency room showed anterior lateral ischemia and at that time Naveen was unsure if he would want a cardiac catheterization, but felt that he should at least see cardiology for consideration of cardiac catheterization. When I saw him this morning, I explained all the risks, benefits and alternatives and he decided that he should at least undergo cardiac catheterization to define his coronary anatomy. He signed consents as such. He was brought to the lab and prepped in the usual sterile fashion. The right radial artery was accessed using a modified Seldinger technique and placement of a slender 5/6 Terumo sheath. The sheath was easily aspirated and flushed. JR-4 was advanced over a J-wire to the ascending aorta. This was used to cross the aortic valve and LV pressures were measured. This was then pulled back across the aortic valve showing no significant gradient of the aortic stenosis. JR-4 was then used for selective angiography of the right coronary artery which is a small non-nondominant artery with a 70% stenosis proximally. JR-4 was then exchanged for a JL-3.5. This was used for selective angiography of the left coronary system. The left main has no significant disease and gives off an LAD and circumflex. The LAD proximally has a long diffuse 80-90% stenosis with heavy calcification. In the middle portion of the LAD, there appears to be a 50-60% stenosis. It also gives two major diagonals with the first one having a 50-60% stenosis ostially, but is a small vessel overall, the second diagonals has no significant disease. The left circumflex has tandem lesions in the proximal to mid section of 80-90% across the first obtuse marginal. It is a super dominant vessel with 70-80% distally before the PDA. The first obtuse marginal has diffuse 80% disease ostial to proximal. The JL-3.5 was then removed over a J-wire. Placement of a TR band was done and then removal of radial sheath and 10 cc of air was placed. The patient left the [employer] cardiovascularly stable. IMPRESSIONS 1. Chest pain with an abnormal stress test showing anterolateral ischemia. 2. Multivessel coronary artery disease. RECOMMENDATIONS 1. Because Naveen has a left dominant system and significant proximal disease of the left circumflex and LAD, I believe that he should at least undergo consideration of coronary artery bypass grafting. 2. I asked Marielos from CT surgery to see him in consultation. 3. We will obtain a 2-D echo to look at his overall left ventricular function, cardiac structure and possible valvopathies. 4. He will continue on aspirin and we will stop Plavix in case of cardiac surgery. 5. If turned down for surgery, we will discuss with him consideration of high risk multivessel coronary artery disease intervention versus medical management. Thank you for allowing me to see Naveen Ceedno. If there are any questions, please do not hesitate to call. Tim Vargas DO VGP/DJL /11:17 AM /11:37 AM
[2016-11-07] MEDS ORDERED: CHLORHEXIDINE GLUCONATE 4% SOLN 120 ML BTL TOPICAL SCH (13:30)
[2016-11-07] MEDS ORDERED: ceFAZolin 2 GM PREMIX 50 ML IV SCH (13:30)
[2016-11-07] MEDS ORDERED: SODIUM CHLORIDE 0.9% FLUSH 5 ML FLUSH IV FLUSH PRN (13:30)
[2016-11-07] MEDS ORDERED: PAPAVERINE INJ 60 MG, NITROGLYCERIN INJ 100 MCG, DILTIAZEM INJ 100 MG in SODIUM CHLORID... IRRIGATION SCH (13:30)
[2016-11-07] MEDS ORDERED: CEFAZOLIN INJ 500 MG in SODIUM CHLORIDE 0.9% IRR BTL 500 ML IRRIGATION SCH (13:30)
[2016-11-07] MEDS ORDERED: METOPROLOL TARTRATE 25 MG TAB PO SCH (13:30)
[2016-11-07] MEDS ORDERED: INSULIN REGULAR (IV INFUSION) 100 UNITS in SODIUM CHLORIDE 0.9% INJ 99 ML IV SCH (13:30)
--- NOTE | 2016-11-07 15:52 | MB ---
cc: QUINTIN PIZANO MD DATE OF CONSULTATION: 11/07/2016 HISTORY OF PRESENT ILLNESS: This is an 86-year-old patient that apparently presented to his primary care physician having complaint of chest pain off and on for a couple of weeks sharp in nature occurs at any time with or without exertion. Because of his risk factors, the primary care physician, Dr. Michael requested a stress test. He presented to [place] and underwent a nuclear stress test which showed a moderate sized partially reversible defect involving the anterior and apical kinsey, some akinesis involving the distal anterior and apical kinsey with an ejection fraction of 31%. The apparently sees Dr. Costa who recommended that they stay and recommended that the patient be transferred to the [facility] in [facility] to be evaluated with cardiology by heart catheterization. The cardiac cath revealed 10% left main disease, proximal LAD 95%, mid distal LAD 60%, diagonal 20%. The circ had 95%. The OM had 90%. The RCA was 75% stenosed, a small dominant vessel. The echocardiogram is pending to evaluate actual ejection fraction. We were consulted to evaluate for coronary artery bypass grafting. PAST MEDICAL HISTORY: His past medical history is significant for: 1. Hypertension. 2. Hyperlipidemia. 3. Carotid stenosis. 4. History of stroke. 5. Abdominal aortic aneurysm. 6. Peripheral vascular disease. 7. He had an ultrasound back in 2013 which showed some high-grade stenosis at the origin of the right carotid and internal carotid and at that time he also had some stenosis of the left internal carotid artery. He has history of undergoing a right carotid endarterectomy with bovine pericardial patch in October [address] Dakotah Ta. ALLERGIES: NO KNOWN ALLERGIES. MEDICATIONS: Home medications include: 1. Aspirin. 2. Plavix. Last dose of Plavix was this morning on November 07. 3. Pravachol. 4. Norvasc. FAMILY HISTORY Denied any premature coronary artery disease or sudden within the family. SOCIAL HISTORY: The patient is . His does have some dementia but she has a sister that stays with her and also he has a son that is available to him. Prior history of tobacco abuse started at age 17, quit in 1986. No alcohol or illicit drugs. REVIEW OF SYSTEMS: Pertinent positives and negatives as above otherwise negative. PHYSICAL EXAMINATION: VITAL SIGNS: On exam blood pressure 155/60, heart rate 70-90, O2 sat 98 on room air, afebrile. GENERAL: Patient is awake, alert, no acute distress. HEAD, EYES, EARS, NOSE, THROAT: The head is normocephalic, atraumatic. Pupils equal and reactive. Oral mucosa pink, moist. NECK: The neck is supple. No JVD. Heart sounds S1-S2 regular rate and rhythm. No rubs, murmurs, gallops. LUNGS: Clear to auscultation. No wheezes, rales or rhonchi. ABDOMEN: Soft, nontender. No masses or organomegaly. EXTREMITIES: Reveal no cyanosis, clubbing or edema. LABORATORY DATA: Lab work shows hemoglobin of 13, hematocrit of 41, platelet count of 215,000. BUN of 13, creatinine 0.75. Troponin negative x3. IMAGING STUDIES: Pharmacological nuclear stress as above in the history of present illness. Chest x-ray was unremarkable. EKGS: EKG shows sinus rhythm with some nonspecific T-wave changes. IMPRESSION: Patient with advanced age and history of recent chest pain, abnormal nuclear stress test showing some the anterior apical possible ischemia status post heart catheterization with multivessel disease. At this time, the cardiac films have been reviewed by Dr. Quintin Pizano. We are waiting on the results of the 2-D echo regarding his ejection fraction. He did speak to the , the son and the 's sister and the patient. We will await those numbers as far as the ejection fraction to evaluate risk for surgery due to his advanced age versus medical treatment versus percutaneous intervention if possible per Dr. Franco. Again final planning and evaluation for surgery depending upon further studies that will be pending the carotid ultrasound and the vein mapping. Dictated by MARIANELA Nolasco. Quintin PAYTON/SARWAT /1:35 PM /3:50 PM
--- NOTE | 2016-11-07 16:03 | TR ---
Date Performed: 11/06/2016 Time Performed: 09:53:39 DOCTOR: Marilia Villafana DRUG LIST: CLINICAL HISTORY: ANGINA REASON FOR TEST: Angina REASON FOR ENDING: OBSERVATION: CONCLUSION: Lexiscan stress test was performed under standard four minute protocol. Radionuclid e was injected one minute prior to ending the test. No electrocardiographic abormalities were present to suggest ischemia. Nuclear imaging and interpretation are pending. COMMENTS:
[2016-11-07 18:51] LABS: BLOOD, URINE NEG (NEG); GLUCOSE,URINE NEG (NEG); KETONE, URINE 10 mg/dL (NEG); NITRITE,URINE NEG (NEG); PH, URINE 7.5 (5.0-8.5); URINE COLOR YELLOW (YELLW/STRAW)
[2016-11-07 18:57] LABS: COMMENT (UR) CULT NOT INDICATED; CULTURE IF INDICATED CULT NOT INDICATED
[2016-11-07] MEDS: SODIUM CHLORIDE 0.9% FLUSH 5 ML FLUSH IV FLUSH SCH (20:45)
--- NOTE | 2016-11-07 22:57 | RADRPT ---
EXAM DATE/TIME: 11/07/2016 15:53 [facility] COMPARISON: No previous studies available for comparison. INDICATIONS : Preop cardiac surgery. MEDICAL HISTORY : Hypertension. Aneurysm, abdominal. Hypercholesterolemia. Bradycardia. CVA. CAD. SURGICAL HISTORY : Appendectomy. Right endarterectomy. ENCOUNTER: Initial ACUITY: 1 day PAIN SCORE: 0/10 LOCATION: Bilateral leg. TECHNIQUE: Venous ultrasound of the left and right leg was performed from the inguinal ligament to the proximal calf. Real-time, color Doppler and spectral tracing, compression and augmentation techniques were us ed. FINDINGS: RIGHT LEG: There is normal compressibility of the deep venous system from the inguinal region to the proximal ca lf. No echogenic clot is seen in the lumen of the common femoral, femoral, popliteal, and posterior tibial veins. There is a normal response of the venous system to proximal and distal augmentation an d respiration. LEFT LEG: There is normal compressibility of the deep venous system from the inguinal region to the proximal ca lf. No echogenic clot is seen in the lumen of the common femoral, femoral, popliteal, and posterior tibial veins. There is a normal response of the venous system to proximal and distal augmentation an d respiration. CONCLUSION: Normal examination. Edward Frey MD on November 07, 2016 at 22:55 Board Certified Radiologist. This report was verified electronically.
--- NOTE | 2016-11-07 22:58 | RADRPT ---
EXAM DATE/TIME: 11/07/2016 16:04 [facility] COMPARISON: No previous studies available for comparison. INDICATIONS : Preop cardiac surgery. MEDICAL HISTORY : Hypertension. Hypercholesterolemia. Aneurysm, abdominal. Bradycardia. CVA. CAD. SURGICAL HISTORY : Appendectomy. Right endarterectomy. ENCOUNTER: Initial ACUITY: 1 day PAIN SCORE: 0/10 LOCATION: Bilateral leg. GREATER SAPHENOUS VEIN THIGH: PROXIMAL: Right 4 mm Left 2 mm MID: Right 2 mm Left 2 mm DISTAL: Right 2 mm Left 1 mm CALF: PROXIMAL: Right 2 mm Left 3 mm MID: Right 2 mm Left 2 mm DISTAL: Right 1 mm Left 3 mm FINDINGS: The venous system of the lower extremities are patent by color Doppler imaging. Measurements of the leg veins (in mm) are listed above. CONCLUSION: 1. Vein measurements as above. Exam within normal limits. Edward Frey MD on November 07, 2016 at 22:56 Board Certified Radiologist. This report was verified electronically.
--- NOTE | 2016-11-07 22:59 | RADRPT ---
EXAM DATE/TIME: 11/07/2016 16:53 [facility] COMPARISON: US CAROTID ARTERIES, October 24, 2013, 8:19. INDICATIONS : Preop cardiac surgery. MEDICAL HISTORY : Hypertension. Aneurysm, abdominal. Hypercholesterolemia. Bradycardia. Coronary stent. CVA. CAD. SURGICAL HISTORY : Appendectomy. Right endarterectomy. ENCOUNTER: Initial ACUITY: 1 day PAIN SCORE: 0/10 LOCATION: Bilateral neck PEAK SYSTOLIC VELOCITIES (cm/sec): ICA/CCA RATIO: Right: 2.8 Left: 1.5 ICA: Right: 125 Left: 232 CCA: Right: 44 Left: 152 ECA: Right: 35 Left: 183 VERTEBRAL: Right: 46 antegrade Left: 66 antegrade Elevated flow velocities and ICA/CCA ratios have been found to correlate with increased degrees of vessel stenosis, calculated as percentage of diameter relative to a normal segment of distal ICA/CCA FINDINGS: There is moderate visible plaque formation. On the right side PSV ratio is elevated to 2.8. On the le ft side peak systolic velocity is elevated to 232 cm/s in the left ICA. Findings suggest at least a m oderate stenosis bilaterally. This would be better evaluated with CTA carotids. CONCLUSION: 1. Findings are characteristic of at least a moderate carotid stenosis bilaterally. Findings better e valuated with carotid CTA. Edward Frey MD on November 07, 2016 at 22:56 Board Certified Radiologist. This report was verified electronically.
[2016-11-08] VITALS (21 sets, daily range): BP systolic 109–146; BP diastolic 47–74; PULSE 56–89; RESP 16–18; TEMP 97.3–98.6; O2SAT 94–98
[2016-11-08 04:56] LABS: AUTOMATED NEUTROPHIL # 6.8 TH/MM3 (1.8-7.7); BASOPHIL % 0.2 % (0.0-2.0); EOSINOPHIL # 0.1 TH/MM3 (0-0.4); EOSINOPHIL % 1.5 % (0.0-4.0); HEMATOCRIT 42.5 % (39.0-51.0); HEMO FLAGS DIFF FINAL; LYMPH % 11.2 % (9.0-44.0); MEAN CELL VOLUME 89.4 FL (80.0-100.0); MEAN CORPUSCULAR HEMOGLOBIN 29.7 PG (27.0-34.0); MEAN CORPUSCULAR HGB CONC 33.3 % (32.0-36.0); MONO % 8.3 % (0.0-8.0); NEUT % 78.8 % (16.0-70.0); PLATELET COUNT 219 TH/MM3 (150-450); RED BLOOD COUNT 4.75 MIL/MM3 (4.50-5.90); RED CELL DISTRIBUTION WIDTH 13.1 % (11.6-17.2); WHITE BLOOD COUNT 8.7 TH/MM3 (4.0-11.0)
[2016-11-08 05:21] LABS: BICARBONATE 27.3 MEQ/L (21.0-32.0); POTASSIUM 4.1 MEQ/L (3.5-5.1)
[2016-11-08] MEDS: amLODIPine BESYLATE 5 MG TAB PO SCH (08:18)
[2016-11-08] MEDS: ASPIRIN 325 MG TAB PO SCH (08:18)
[2016-11-08] MEDS: PRAVASTATIN SOD 20 MG TAB PO SCH (08:18)
[2016-11-08] MEDS: SODIUM CHLORIDE 0.9% FLUSH 5 ML FLUSH IV FLUSH SCH ×2 (08:20→21:02)
[2016-11-08] MEDS: SODIUM CHLORIDE 0.9% FLUSH 5 ML FLUSH IVF SCH ×4 (08:20→21:00)
--- NOTE | 2016-11-08 11:16 | PD.CARD.PN ---
Subjective Subjective Remarks No chest pain, no shortness of breath Objective Medications Current Medications Medications (Trade) Dose Ordered Sig/Munira Route Start Time Stop Time Status Last Admin (Tylenol) 500 mg Q4H PRN PO 11/05/16 14:30 ([place] 7.5-325 Mg) 1 tab Q4H PRN PO 11/05/16 14:30 (Morphine Inj) 2 mg Q4H PRN IV 11/05/16 14:30 (Zofran Inj) 4 mg Q6H PRN IV 11/05/16 14:30 (Nitrostat Sl) 0.4 mg Q5M PRN SL 11/05/16 14:30 (Aspirin) 325 mg DAILY PO 11/06/16 09:00 11/08/16 08:18 (Restoril) 15 mg HS PRN PO 11/05/16 14:30 (Norvasc) 5 mg DAILY PO 11/06/16 09:00 11/08/16 08:18 (Pravachol) 20 mg DAILY PO 11/06/16 09:00 11/08/16 08:18 (NS Flush) 2 ml BID IVF 11/07/16 21:00 (NS Flush) 2 ml UNSCH PRN IVF 11/07/16 11:30 (NS Flush) 2 ml BID IV FLUSH 11/07/16 21:00 11/08/16 08:20 (NS Flush) 2 ml UNSCH PRN IV FLUSH 11/07/16 13:30 Vital Signs / I&O Vital Signs Date Time Temp Pulse Resp B/P Pulse Ox O2 Delivery O2 Flow Rate FiO2 11/08/16 08:01 97.9 78 18 125/74 95 11/08/16 08:01 80 11/08/16 03:00 98.1 81 18 113/58 94 11/07/16 23:00 97.5 64 18 129/60 97 11/07/16 21:01 96 11/07/16 20:00 84 11/07/16 20:00 97.7 84 18 151/75 98 11/07/16 17:45 77 18 153/71 97 I/O 11/07/16 11/07/16 11/07/16 11/08/16 11/08/16 11/08/16 07:00 15:00 23:00 07:00 15:00 23:00 Intake Total 0 ml 240 ml Output Total 100 ml Balance -100 ml 240 ml Intake Oral 0 ml 240 ml Output Urine Total 100 ml # Voids 2 # Bowel Movements 0 1 Physical Exam GENERAL: NAD SKIN: Warm and dry. HEAD: Atraumatic. Normocephalic. EYES: Pupils equal and round. No scleral icterus. No injection or drainage. ENT: No nasal bleeding or discharge. Mucous membranes pink and moist. NECK: Trachea midline. No JVD. CARDIOVASCULAR: Regular rate and rhythm. RESPIRATORY: No accessory muscle use. Clear to auscultation. Breath sounds equal bilaterally. GASTROINTESTINAL: Abdomen soft, non-tender, nondistended. Hepatic and splenic margins not palpable. MUSCULOSKELETAL: Extremities without clubbing, cyanosis, or edema. No obvious deformities. Right radial no hematoma NEUROLOGICAL: Awake and alert. No obvious cranial nerve deficits. Motor grossly within normal limits. Five out of 5 muscle strength in the arms and legs. Normal speech. PSYCHIATRIC: Appropriate mood and affect; insight and judgment normal. Laboratory Laboratory Tests Test 11/07/16 11/07/16 11/08/16 18:00 18:17 03:24 Nasal Screen MRSA (PCR) NEGATIVE Urine Color YELLOW Urine Turbidity CLEAR Urine pH 7.5 Urine Specific [place] 1.020 Urine Protein NEG mg/dL Urine Glucose (UA) NEG mg/dL Urine Ketones 10 mg/dL Urine Occult Blood NEG Urine Nitrite NEG Urine Bilirubin NEG Urine Urobilinogen LESS THAN 2.0 MG/DL Urine Leukocyte Esterase NEG Urine RBC LESS THAN 1 /hpf Microscopic Urinalysis Comment CULT NOT INDICATED White Blood Count 8.7 TH/MM3 Red Blood Count 4.75 MIL/MM3 Hemoglobin 14.1 GM/DL Hematocrit 42.5 % Mean Corpuscular Volume 89.4 FL Mean Corpuscular Hemoglobin 29.7 PG Mean Corpuscular Hemoglobin 33.3 % Concent Red Cell Distribution Width 13.1 % Platelet Count 219 TH/MM3 Mean Platelet Volume 10.2 FL Neutrophils (%) (Auto) 78.8 % Lymphocytes (%) (Auto) 11.2 % Monocytes (%) (Auto) 8.3 % Eosinophils (%) (Auto) 1.5 % Basophils (%) (Auto) 0.2 % Neutrophils # (Auto) 6.8 TH/MM3 Lymphocytes # (Auto) 1.0 TH/MM3 Monocytes # (Auto) 0.7 TH/MM3 Eosinophils # (Auto) 0.1 TH/MM3 Basophils # (Auto) 0.0 TH/MM3 CBC Comment DIFF FINAL Differential Comment Sodium Level 141 MEQ/L Potassium Level 4.1 MEQ/L Chloride Level 107 MEQ/L Carbon Dioxide Level 27.3 MEQ/L Anion Gap 7 MEQ/L Blood Urea Nitrogen 20 MG/DL Creatinine 0.88 MG/DL Estimat Glomerular Filtration 82 ML/MIN Rate Random Glucose 109 MG/DL Calcium Level 8.7 MG/DL Assessment and Plan Problem List: (1) Multi-vessel coronary artery stenosis (2) Hypertension (3) Chest pain (4) Hyperlipidemia (5) History of CVA (cerebrovascular accident) Assessment and Plan 1) MVCAD - Prox LAD, Prox LCx, Distal LCx, non-dominant RCA 2) Consideration of CT Surgery, awaiting further work up 3) 2D echo pending 4) If turned down from surgery stand point, will discuss with him and his son about medical management vs high risk PCI Problem Qualifiers (1) Hypertension: Qualified Code: I15.9 - Secondary hypertension (2) Chest pain: Qualified Code: R07.2 - Precordial pain (3) Hyperlipidemia: Qualified Code: E78.5 - Hyperlipidemia, unspecified hyperlipidemia type Tim Rodriguez DO Nov 08, 2016 11:15
--- NOTE | 2016-11-08 11:35 | HHI.PR ---
Subjective Remarks resting comfortably with no distress. no chest pain or sob. Objective Vitals Vital Signs Date Time Temp Pulse Resp B/P Pulse Ox O2 Delivery O2 Flow Rate FiO2 11/08/16 08:01 97.9 78 18 125/74 95 11/08/16 08:01 80 11/08/16 03:00 98.1 81 18 113/58 94 11/07/16 23:00 97.5 64 18 129/60 97 11/07/16 21:01 96 11/07/16 20:00 84 11/07/16 20:00 97.7 84 18 151/75 98 11/07/16 17:45 77 18 153/71 97 I/O 11/07/16 11/07/16 11/07/16 11/08/16 11/08/16 11/08/16 07:00 15:00 23:00 07:00 15:00 23:00 Intake Total 0 ml 240 ml Output Total 100 ml Balance -100 ml 240 ml Intake Oral 0 ml 240 ml Output Urine Total 100 ml # Voids 2 # Bowel Movements 0 1 Result Diagram: 11/08/16 0324 11/08/16 0324 Imaging Last Impressions Lower Extremity Ultrasound 11/07/16 0000 Signed Impressions: Service Date/Time: Monday, November 07, 2016 16:04 - CONCLUSION: 1. Vein measurements as above. Exam within normal limits. Edward Frey MD Carotid Artery Ultrasound 11/07/16 0000 Signed Impressions: Service Date/Time: Monday, November 07, 2016 16:53 - CONCLUSION: 1. Findings are characteristic of at least a moderate carotid stenosis bilaterally. Findings better evaluated with carotid CTA. Edward Frey MD Myocardial Perfusion Scan Nuc Med 11/06/16 0600 Signed Impressions: Service Date/Time: October 09:43 - CONCLUSION: 1. Moderate sized partially reversible defect involving the anterior and apical kinsey. 2. Akinesis involving the distal anterior and apical kinsey with decreased calculated ejection fraction of 31%%. RISK CATEGORY: Intermediate (1-3%% Annual Mortality Rate) Bk Salazar MD Chest X-Ray 11/05/16 1334 Signed Impressions: Service Date/Time: Saturday, November 05, 2016 14:03 - CONCLUSION: 1. No acute pulmonary infiltrates. 2. Possible nipple shadow projected over the right lower lung. If clinically indicated, recommend a followup two-view chest x-ray with nipple markers Rex Linn MD Objective Remarks GENERAL: This is a well-nourished, well-developed patient, in no apparent distress. CARDIOVASCULAR: Regular rate and regular rhythm without murmurs, gallops, or rubs. RESPIRATORY: Clear to auscultation. Breath sounds equal bilaterally. No wheezes , rales, or rhonchi. GASTROINTESTINAL: Abdomen soft, non-tender, nondistended. Normal, active bowel sounds MUSCULOSKELETAL: Extremities without clubbing, cyanosis, or edema. NEURO: Alert & Oriented x4 to person, place, time, situation. Moves all ext x4 Procedures none Medications and IVs Current Medications Aspirin (Aspirin Chew) 162 mg ONCE ONCE PO ; Start 11/05/16 at 13:45; Stop at 13:45; Status DC IV Flush (NS Flush) 2 ml UNSCH PRN IVF FLUSH AFTER USING IV ACCESS; Start 11/05 at 13:45; Stop 11/05/16 at 14:39; Status DC IV Flush (NS Flush) 2 ml UNSCH PRN IVF FLUSH AFTER USING IV ACCESS; Start 11/05 at 14:30 IV Flush (NS Flush) 2 ml BID IVF Last administered on 11/07/16t 21:00; Start at 21:00 Acetaminophen (Tylenol) 500 mg Q4H PRN PO HEADACHE; Start 11/05/16 at 14:30 Acetaminophen/ Hydrocodone Bitart ([place] 7.5-325 Mg) 1 tab Q4H PRN PO PAIN SCALE 1 TO 7; Start 11/05/16 at 14:30 Morphine Sulfate (Morphine Inj) 2 mg Q4H PRN IV PAIN SCALE 8 TO 10; Start 11/05 at 14:30 Ondansetron HCl (Zofran Inj) 4 mg Q6H PRN IV NAUSEA; Start 11/05/16 at 14:30 Nitroglycerin (Nitrostat Sl) 0.4 mg Q5M PRN SL CHEST PAIN; Start 11/05/16 at 14 :30 Aspirin (Aspirin) 325 mg DAILY PO Last administered on 11/08/16 08:18; Start 11/06/16 at 09:00 Temazepam (Restoril) 15 mg HS PRN PO INSOMNIA; Start 11/05/16 at 14:30 Amlodipine Besylate (Norvasc) 5 mg DAILY PO Last administered on 11/08/16 08: 18; Start 11/06/16 at 09:00 Clopidogrel Bisulfate (Plavix) 75 mg DAILY PO Last administered on 11/07/16 09 :06; Start 11/06/16 at 09:00; Stop 11/07/16 at 11:29; Status DC Pravastatin Sodium (Pravachol) 20 mg DAILY PO Last administered on 11/08/16 08 :18; Start 11/06/16 at 09:00 Regadenoson 0.4 mg 0.4 mg STK-MED ONCE IV Last administered on 11/06/16 09:35 ; Start 11/06/16 at 09:35; Stop 11/06/16 at 09:36; Status DC Heparin Sodium/ Sodium Chloride (Heparin-NS/Pf Inj) 500 ml @ As Directed STK- MED ONCE .ROUTE Last administered on 11/07/16 10:13; Start 11/07/16 at 10:13; Stop 11/07/16 at 10:14; Status DC Midazolam HCl (Versed Inj) 2 mg STK-MED ONCE .ROUTE Last administered on 10:15; Start 11/07/16 at 10:15; Stop 11/07/16 at 10:16; Status DC Fentanyl Citrate (fentaNYL INJ) 100 mcg STK-MED ONCE .ROUTE Last administered on 11/07/16 10:15; Start 11/07/16 at 10:15; Stop 11/07/16 at 10:16; Status DC Heparin Sodium (Porcine) 99028 units 10,000 units STK-MED ONCE .ROUTE Last administered on 11/07/16 10:23; Start 11/07/16 at 10:23; Stop 11/07/16 at 10:24 ; Status DC Nitroglycerin (Nitroglycerin Inj) 5 ml @ As Directed STK-MED ONCE .ROUTE Last administered on 11/07/16 10:23; Start 11/07/16 at 10:23; Stop 11/07/16 at 10:24 ; Status DC Verapamil HCl (Isoptin Inj) 5 mg STK-MED ONCE .ROUTE Last administered on 1/20/ 17at 10:24; Start 11/07/16 at 10:24; Stop 11/07/16 at 10:25; Status DC IV Flush (NS Flush) 2 ml BID IVF ; Start 11/07/16 at 21:00 IV Flush (NS Flush) 2 ml UNSCH PRN IVF FLUSH AFTER USING IV ACCESS; Start 11/07 at 11:30 Iohexol (OMNIPAQUE 350 INJ (Fishery Division Chief)) 50 ml STK-MED ONCE OTHER ; Start at 11:33; Stop 11/07/16 at 11:34; Status DC IV Flush (NS Flush) 2 ml BID IV FLUSH Last administered on 11/08/16t 08:20; Start 11/07/16 at 21:00 IV Flush 2 ml 2 ml UNSCH PRN IV FLUSH FLUSH AFTER USING IV ACCESS; Start at 13:30 Papaverine HCl 60 mg/Nitroglycerin 100 mcg/Diltiazem HCl 100 mg/Sodium Chloride 100.0 ml @ 0 mls/hr LOADER [employer]AZINE GRINDER IRRIGATION ; Start 11/07/16 at 13:30; Stop at 13:29 Cefazolin Sodium 500 mg/Sodium Chloride 505 ml @ 0 mls/hr LOADER [employer]AZ[employer] GRINDER IRRIGATION ; Start 11/07/16 at 13:30; Stop 11/14/16 at 13:29 Cefazolin Sodium/ Dextrose (Ancef 2 Gm Premix) 50 ml @ 150 mls/hr LOADER MAGAZINE GRINDER IV ; Start 11/07/16 at 13:30; Stop 11/14/16 at 13:29 Metoprolol Tartrate (Lopressor) 12.5 mg LOADER MAGAZINE GRINDER PO ; Start 11/07/16 at 13:30; Stop 11/14/16 at 13:29 Chlorhexidine Gluconate 1 applic 1 applic LOADER MAGAZINE GRINDER TOPICAL ; Start 11/07/16 at 13:30; Stop 11/14/16 at 13:29 Insulin Human Regular/Sodium Chloride (NovoLIN R (IV INFUSION)/NS Inj) 100 ml @ 0 mls/hr LOADER MAGAZINE GRINDER IV ; Start 11/07/16 at 13:30; Stop 11/14/16 at 13:29 A/P Assessment and Plan A/P Chest pain, atypical Patient with increased risk factors to include age, male, hypertension, hyperlipidemia, history of tobacco use Serial cardiac enzymes negative. Continue aspirin and nitroglycerin as needed Nuclear stress test was performed which did indicate a moderate size partially reversible defect involving the anterior and apical kinsey. Akinesis involving the distal anterior apical wall with decreased ejection fraction 31%. Intermediate risk -s/p cardiac cath with multivessel disease -echo pending -CT surgery consulted- awaiting recommendations. Hypertension Continue home medications Hyperlipidemia Continue statin DVT prevention Sequential compression devices Discharge Planning pending cardiology/CT surgery recommendations. Destiny Hernandez MD Nov 08, 2016 11:35
--- NOTE | 2016-11-08 14:37 | EC ---
Study Study Date:11/07/2016 STUDY CONCLUSIONS SUMMARY Procedure narrative: Image quality was poor. The study was technically limited due to poor acoustic window availability. Unable to determine LV function or valvulopathies. Recommendations: Will need to attempt repeat echo at least for overall LV function evaluation If LV function is below 40, please consider prescribing an ACEI or ARB or document rationale for non-use. PROCEDURE DATA STUDY STATUS: Elective. Procedure: Image quality was poor. The study was technically limited due to poor acoustic window availability. Unable to determine LV function or valvulopathies. STUDY COMPLETION: THE PATIENT TOLERATED THE PROCEDURE WELL. Transthoracic echocardiography. M-mode, complete 2D, complete spectral Doppler, and color Doppler. Patient status: Inpatient. CARDIAC ANATOMY LEFT VENTRICLE: Not visualized. AORTIC VALVE: Not well visualized. MITRAL VALVE: Not visualized. Prepared and signed by Tim Rodriguez [id number]
[2016-11-09] VITALS (21 sets, daily range): BP systolic 119–156; BP diastolic 53–87; PULSE 58–84; RESP 12–18; TEMP 96.4–98.7; O2SAT 9–98
[2016-11-09] MEDS: SODIUM CHLORIDE 0.9% FLUSH 5 ML FLUSH IVF SCH ×2 (09:00)
[2016-11-09] MEDS: ASPIRIN 325 MG TAB PO SCH (09:00)
[2016-11-09] MEDS: amLODIPine BESYLATE 5 MG TAB PO SCH (10:02)
[2016-11-09] MEDS: PRAVASTATIN SOD 20 MG TAB PO SCH (10:02)
--- NOTE | 2016-11-09 10:49 | HHI.PR ---
Subjective Remarks resting comfortably with no chest pain or sob. awaiting CT surgery follow-up. d/w the RN. Objective Vitals Vital Signs Date Time Temp Pulse Resp B/P Pulse Ox O2 Delivery O2 Flow Rate FiO2 11/09/16 08:00 98.2 71 18 129/73 9 11/09/16 06:00 63 11/09/16 05:00 68 11/09/16 04:00 68 11/09/16 03:00 98.0 71 12 119/53 95 11/09/16 03:00 70 11/09/16 02:00 69 11/09/16 01:00 67 11/09/16 00:00 65 11/08/16 23:00 59 11/08/16 23:00 97.8 69 18 126/56 98 11/08/16 22:10 56 11/08/16 21:00 78 11/08/16 20:00 67 11/08/16 19:00 67 11/08/16 19:00 97.7 65 18 146/71 97 11/08/16 17:33 96 21 11/08/16 17:00 71 11/08/16 16:00 70 11/08/16 15:01 98.6 73 16 109/47 96 11/08/16 15:00 71 11/08/16 14:00 71 11/08/16 13:01 76 11/08/16 12:00 71 11/08/16 11:44 95 21 11/08/16 11:01 97.3 65 16 144/67 95 11/08/16 11:00 81 I/O 11/08/16 11/08/16 11/08/16 11/09/16 11/09/16 11/09/16 06:59 14:59 22:59 06:59 14:59 22:59 Intake Total 240 ml 702 ml 240 ml Balance 240 ml 702 ml 240 ml Intake Oral 240 ml 702 ml 240 ml # Voids 2 3 4 # Bowel Movements 1 1 Result Diagram: 11/08/16 0324 11/08/16 0324 Imaging Last Impressions Lower Extremity Ultrasound 11/07/16 0000 Signed Impressions: Service Date/Time: Monday, November 07, 2016 16:04 - CONCLUSION: 1. Vein measurements as above. Exam within normal limits. Edward Frey MD Carotid Artery Ultrasound 11/07/16 0000 Signed Impressions: Service Date/Time: Monday, November 07, 2016 16:53 - CONCLUSION: 1. Findings are characteristic of at least a moderate carotid stenosis bilaterally. Findings better evaluated with carotid CTA. Edward Frey MD Myocardial Perfusion Scan Nuc Med 11/06/16 0600 Signed Impressions: Service Date/Time: October 09:43 - CONCLUSION: 1. Moderate sized partially reversible defect involving the anterior and apical kinsey. 2. Akinesis involving the distal anterior and apical kinsey with decreased calculated ejection fraction of 31%%. RISK CATEGORY: Intermediate (1-3%% Annual Mortality Rate) Bk Salazar MD Chest X-Ray 11/05/16 1334 Signed Impressions: Service Date/Time: Saturday, November 05, 2016 14:03 - CONCLUSION: 1. No acute pulmonary infiltrates. 2. Possible nipple shadow projected over the right lower lung. If clinically indicated, recommend a followup two-view chest x-ray with nipple markers Rex Linn MD Objective Remarks GENERAL: This is a well-nourished, well-developed patient, in no apparent distress. CARDIOVASCULAR: Regular rate and regular rhythm without murmurs, gallops, or rubs. RESPIRATORY: Clear to auscultation. Breath sounds equal bilaterally. No wheezes , rales, or rhonchi. GASTROINTESTINAL: Abdomen soft, non-tender, nondistended. Normal, active bowel sounds MUSCULOSKELETAL: Extremities without clubbing, cyanosis, or edema. NEURO: Alert & Oriented x4 to person, place, time, situation. Moves all ext x4 Procedures none Medications and IVs Current Medications Aspirin (Aspirin Chew) 162 mg ONCE ONCE PO ; Start 11/05/16 at 13:45; Stop at 13:45; Status DC IV Flush (NS Flush) 2 ml UNSCH PRN IVF FLUSH AFTER USING IV ACCESS; Start 11/05 at 13:45; Stop 11/05/16 at 14:39; Status DC IV Flush (NS Flush) 2 ml UNSCH PRN IVF FLUSH AFTER USING IV ACCESS; Start 11/05 at 14:30 IV Flush (NS Flush) 2 ml BID IVF Last administered on 11/07/16t 21:00; Start at 21:00 Acetaminophen (Tylenol) 500 mg Q4H PRN PO HEADACHE; Start 11/05/16 at 14:30 Acetaminophen/ Hydrocodone Bitart ([place] 7.5-325 Mg) 1 tab Q4H PRN PO PAIN SCALE 1 TO 7; Start 11/05/16 at 14:30 Morphine Sulfate (Morphine Inj) 2 mg Q4H PRN IV PAIN SCALE 8 TO 10; Start 11/05 at 14:30 Ondansetron HCl (Zofran Inj) 4 mg Q6H PRN IV NAUSEA; Start 11/05/16 at 14:30 Nitroglycerin (Nitrostat Sl) 0.4 mg Q5M PRN SL CHEST PAIN; Start 11/05/16 at 14 :30 Aspirin (Aspirin) 325 mg DAILY PO Last administered on 11/09/16 09:00; Start 11/06/16 at 09:00 Temazepam (Restoril) 15 mg HS PRN PO INSOMNIA; Start 11/05/16 at 14:30 Amlodipine Besylate (Norvasc) 5 mg DAILY PO Last administered on 11/09/16 10: 02; Start 11/06/16 at 09:00 Clopidogrel Bisulfate (Plavix) 75 mg DAILY PO Last administered on 11/07/16 09 :06; Start 11/06/16 at 09:00; Stop 11/07/16 at 11:29; Status DC Pravastatin Sodium (Pravachol) 20 mg DAILY PO Last administered on 11/09/16 10 :02; Start 11/06/16 at 09:00 Regadenoson 0.4 mg 0.4 mg STK-MED ONCE IV Last administered on 11/06/16 09:35 ; Start 11/06/16 at 09:35; Stop 11/06/16 at 09:36; Status DC Heparin Sodium/ Sodium Chloride (Heparin-NS/Pf Inj) 500 ml @ As Directed STK- MED ONCE .ROUTE Last administered on 11/07/16 10:13; Start 11/07/16 at 10:13; Stop 11/07/16 at 10:14; Status DC Midazolam HCl (Versed Inj) 2 mg STK-MED ONCE .ROUTE Last administered on 10:15; Start 11/07/16 at 10:15; Stop 11/07/16 at 10:16; Status DC Fentanyl Citrate (fentaNYL INJ) 100 mcg STK-MED ONCE .ROUTE Last administered on 11/07/16 10:15; Start 11/07/16 at 10:15; Stop 11/07/16 at 10:16; Status DC Heparin Sodium (Porcine) 69431 units 10,000 units STK-MED ONCE .ROUTE Last administered on 11/07/16 10:23; Start 11/07/16 at 10:23; Stop 11/07/16 at 10:24 ; Status DC Nitroglycerin (Nitroglycerin Inj) 5 ml @ As Directed STK-MED ONCE .ROUTE Last administered on 11/07/16 10:23; Start 11/07/16 at 10:23; Stop 11/07/16 at 10:24 ; Status DC Verapamil HCl (Isoptin Inj) 5 mg STK-MED ONCE .ROUTE Last administered on 10:24; Start 11/07/16 at 10:24; Stop 11/07/16 at 10:25; Status DC IV Flush (NS Flush) 2 ml BID IVF ; Start 11/07/16 at 21:00 IV Flush (NS Flush) 2 ml UNSCH PRN IVF FLUSH AFTER USING IV ACCESS; Start 11/07 at 11:30 Iohexol (OMNIPAQUE 350 INJ (Waste Transportation Technician)) 50 ml STK-MED ONCE OTHER ; Start at 11:33; Stop 11/07/16 at 11:34; Status DC IV Flush (NS Flush) 2 ml BID IV FLUSH Last administered on 11/08/16 21:02; Start 11/07/16 at 21:00 IV Flush 2 ml 2 ml UNSCH PRN IV FLUSH FLUSH AFTER USING IV ACCESS; Start at 13:30 Papaverine HCl 60 mg/Nitroglycerin 100 mcg/Diltiazem HCl 100 mg/Sodium Chloride 100.0 ml @ 0 mls/hr COUNTER SUPERVISOR IRRIGATION ; Start 11/07/16 at 13:30; Stop at 13:29 Cefazolin Sodium 500 mg/Sodium Chloride 505 ml @ 0 mls/hr [employer]TER SUPERVISOR IRRIGATION ; Start 11/07/16 at 13:30; Stop 11/14/16 at 13:29 Cefazolin Sodium/ Dextrose (Ancef 2 Gm Premix) 50 ml @ 150 mls/hr COUNTER SUPERVISOR IV ; Start 11/07/16 at 13:30; Stop 11/14/16 at 13:29 Metoprolol Tartrate (Lopressor) 12.5 mg COUNTER SUPERVISOR PO ; Start 11/07/16 at 13:30; Stop 11/14/16 at 13:29 Chlorhexidine Gluconate 1 applic 1 applic COUNTER SUPERVISOR TOPICAL ; Start 11/07/16 at 13:30; Stop 11/14/16 at 13:29 Insulin Human Regular/Sodium Chloride (NovoLIN R (IV INFUSION)/NS Inj) 100 ml @ 0 mls/hr COUNTER SUPERVISOR IV ; Start 11/07/16 at 13:30; Stop 11/14/16 at 13:29 A/P Assessment and Plan A/P Chest pain Patient with increased risk factors to include age, male, hypertension, hyperlipidemia, history of tobacco use Serial cardiac enzymes negative. Nuclear stress test was performed which did indicate a moderate size partially reversible defect involving the anterior and apical kinsey. Akinesis involving the distal anterior apical wall with decreased ejection fraction 31%. Intermediate risk -s/p cardiac cath with multivessel disease -echo ; limited study -CT surgery consulted- awaiting recommendations. -continue aspirin and statin Hypertension Continue home medications Hyperlipidemia Continue statin DVT prevention Sequential compression devices Discharge Planning pending cardiology/CT surgery recommendations. Destiny Hernandez MD Nov 09, 2016 10:49
--- NOTE | 2016-11-09 11:59 | PD.CARD.PN ---
Subjective Subjective Remarks No chest pain, no shortness of breath Objective Medications Current Medications Medications (Trade) Dose Ordered Sig/Munira Route Start Time Stop Time Status Last Admin (NS Flush) 2 ml UNSCH PRN IVF 11/05/16 14:30 (NS Flush) 2 ml BID IVF 11/05/16 21:00 11/07/16 21:00 (Tylenol) 500 mg Q4H PRN PO 11/05/16 14:30 ([place] 7.5-325 Mg) 1 tab Q4H PRN PO 11/05/16 14:30 (Morphine Inj) 2 mg Q4H PRN IV 11/05/16 14:30 (Zofran Inj) 4 mg Q6H PRN IV 11/05/16 14:30 (Nitrostat Sl) 0.4 mg Q5M PRN SL 11/05/16 14:30 (Aspirin) 325 mg DAILY PO 11/06/16 09:00 11/09/16 09:00 (Restoril) 15 mg HS PRN PO 11/05/16 14:30 (Norvasc) 5 mg DAILY PO 11/06/16 09:00 11/09/16 10:02 (Pravachol) 20 mg DAILY PO 11/06/16 09:00 11/09/16 10:02 (NS Flush) 2 ml BID IVF 11/07/16 21:00 (NS Flush) 2 ml UNSCH PRN IVF 11/07/16 11:30 (NS Flush) 2 ml BID IV FLUSH 11/07/16 21:00 11/08/16 21:02 (NS Flush) 2 ml UNSCH PRN IV FLUSH 11/07/16 13:30 Vital Signs / I&O Vital Signs Date Time Temp Pulse Resp B/P Pulse Ox O2 Delivery O2 Flow Rate FiO2 11/09/16 11:44 95 21 11/09/16 08:00 98.2 71 18 129/73 9 11/09/16 06:00 63 11/09/16 05:00 68 11/09/16 04:00 68 11/09/16 03:00 98.0 71 12 119/53 95 11/09/16 03:00 70 11/09/16 02:00 69 11/09/16 01:00 67 11/09/16 00:00 65 11/08/16 23:00 59 11/08/16 23:00 97.8 69 18 126/56 98 11/08/16 22:10 56 11/08/16 21:00 78 11/08/16 20:00 67 11/08/16 19:00 67 11/08/16 19:00 97.7 65 18 146/71 97 11/08/16 17:33 96 21 11/08/16 17:00 71 11/08/16 16:00 70 11/08/16 15:01 98.6 73 16 109/47 96 11/08/16 15:00 71 11/08/16 14:00 71 11/08/16 13:01 76 11/08/16 12:00 71 I/O 11/08/16 11/08/16 11/08/16 11/09/16 11/09/16 11/09/16 07:00 15:00 23:00 07:00 15:00 23:00 Intake Total 240 ml 702 ml 240 ml Balance 240 ml 702 ml 240 ml Intake Oral 240 ml 702 ml 240 ml # Voids 2 3 4 # Bowel Movements 1 1 Physical Exam GENERAL: NAD SKIN: Warm and dry. HEAD: Atraumatic. Normocephalic. EYES: Pupils equal and round. No scleral icterus. No injection or drainage. ENT: No nasal bleeding or discharge. Mucous membranes pink and moist. NECK: Trachea midline. No JVD. CARDIOVASCULAR: Regular rate and rhythm. RESPIRATORY: No accessory muscle use. Clear to auscultation. Breath sounds equal bilaterally. GASTROINTESTINAL: Abdomen soft, non-tender, nondistended. Hepatic and splenic margins not palpable. MUSCULOSKELETAL: Extremities without clubbing, cyanosis, or edema. No obvious deformities. Right radial no hematoma NEUROLOGICAL: Awake and alert. No obvious cranial nerve deficits. Motor grossly within normal limits. Five out of 5 muscle strength in the arms and legs. Normal speech. PSYCHIATRIC: Appropriate mood and affect; insight and judgment normal. Assessment and Plan Problem List: (1) Multi-vessel coronary artery stenosis (2) Hypertension (3) Chest pain (4) Hyperlipidemia (5) History of CVA (cerebrovascular accident) Assessment and Plan 1) MVCAD - Prox LAD, Prox LCx, Distal LCx, non-dominant RCA 2) Consideration of CT Surgery, awaiting further work up 3) 2D echo unreadable, will repeat now that the patient is up out of bed and not laying flat post-cath 4) If turned down from surgery stand point, will discuss with him and his son about medical management vs high risk PCI, in speaking today considering medical management 5) Off Plavix in consideration of CT Surgery Problem Qualifiers (1) Hypertension: Qualified Code: I15.9 - Secondary hypertension (2) Chest pain: Qualified Code: R07.2 - Precordial pain (3) Hyperlipidemia: Qualified Code: E78.5 - Hyperlipidemia, unspecified hyperlipidemia type Tim Rodriguez DO Nov 09, 2016 11:59
[2016-11-10] VITALS (16 sets, daily range): BP systolic 115–132; BP diastolic 50–74; PULSE 64–91; RESP 14–18; TEMP 96.5–97.6; O2SAT 95–98
[2016-11-10] MEDS: SODIUM CHLORIDE 0.9% FLUSH 5 ML FLUSH IV FLUSH SCH ×2 (09:00→09:03)
[2016-11-10] MEDS: SODIUM CHLORIDE 0.9% FLUSH 5 ML FLUSH IVF SCH ×2 (09:00)
[2016-11-10] MEDS: amLODIPine BESYLATE 5 MG TAB PO SCH ×2 (09:00→09:07)
[2016-11-10] MEDS: PRAVASTATIN SOD 20 MG TAB PO SCH ×2 (09:01→09:07)
[2016-11-10] MEDS: ASPIRIN 325 MG TAB PO SCH ×2 (09:01→09:07)
--- NOTE | 2016-11-10 10:01 | HHI.PR ---
Subjective Remarks walking in the room with no complaints. no chest pain or sob. no new complaints. Objective Vitals Vital Signs Date Time Temp Pulse Resp B/P Pulse Ox O2 Delivery O2 Flow Rate FiO2 11/10/16 06:21 96.5 68 14 117/50 98 11/10/16 06:00 72 11/10/16 05:00 71 11/10/16 04:00 71 11/10/16 03:00 67 11/10/16 02:00 66 11/10/16 01:00 69 11/10/16 00:31 96.5 83 14 115/55 95 11/10/16 00:00 64 11/09/16 23:00 65 11/09/16 22:00 58 11/09/16 21:16 96.4 63 14 156/70 95 11/09/16 21:00 66 11/09/16 20:00 73 11/09/16 19:00 70 11/09/16 17:00 66 11/09/16 16:00 97.8 63 18 155/67 98 11/09/16 13:00 98.7 68 18 137/87 98 11/09/16 13:00 61 11/09/16 11:44 95 21 11/09/16 11:00 84 I/O 11/09/16 11/09/16 11/09/16 11/10/16 11/10/16 11/10/16 07:00 15:00 23:00 07:00 15:00 23:00 Intake Total 240 ml 240 ml Output Total 1200 ml Balance 240 ml -1200 ml 240 ml Intake Oral 240 ml 240 ml Output Urine Total 1200 ml # Voids 4 3 # Bowel Movements 0 Result Diagram: 11/08/16 0324 11/08/16 0324 Imaging Last Impressions Lower Extremity Ultrasound 11/07/16 0000 Signed Impressions: Service Date/Time: Monday, November 07, 2016 16:04 - CONCLUSION: 1. Vein measurements as above. Exam within normal limits. Edward Frey MD Carotid Artery Ultrasound 11/07/16 0000 Signed Impressions: Service Date/Time: Monday, November 07, 2016 16:53 - CONCLUSION: 1. Findings are characteristic of at least a moderate carotid stenosis bilaterally. Findings better evaluated with carotid CTA. Edward Frey MD Myocardial Perfusion Scan Nuc Med 11/06/16 0600 Signed Impressions: Service Date/Time: October 09:43 - CONCLUSION: 1. Moderate sized partially reversible defect involving the anterior and apical kinsey. 2. Akinesis involving the distal anterior and apical kinsey with decreased calculated ejection fraction of 31%%. RISK CATEGORY: Intermediate (1-3%% Annual Mortality Rate) Bk Salazar MD Chest X-Ray 11/05/16 1334 Signed Impressions: Service Date/Time: Saturday, November 05, 2016 14:03 - CONCLUSION: 1. No acute pulmonary infiltrates. 2. Possible nipple shadow projected over the right lower lung. If clinically indicated, recommend a followup two-view chest x-ray with nipple markers Rex Linn MD Objective Remarks GENERAL: This is a well-nourished, well-developed patient, in no apparent distress. CARDIOVASCULAR: Regular rate and regular rhythm without murmurs, gallops, or rubs. RESPIRATORY: Clear to auscultation. Breath sounds equal bilaterally. No wheezes , rales, or rhonchi. GASTROINTESTINAL: Abdomen soft, non-tender, nondistended. Normal, active bowel sounds MUSCULOSKELETAL: Extremities without clubbing, cyanosis, or edema. NEURO: Alert & Oriented x4 to person, place, time, situation. Moves all ext x4 Procedures cardiac cath. Medications and IVs Current Medications Aspirin (Aspirin Chew) 162 mg ONCE ONCE PO ; Start 11/05/16 at 13:45; Stop at 13:45; Status DC IV Flush (NS Flush) 2 ml UNSCH PRN IVF FLUSH AFTER USING IV ACCESS; Start 11/05 at 13:45; Stop 11/05/16 at 14:39; Status DC IV Flush (NS Flush) 2 ml UNSCH PRN IVF FLUSH AFTER USING IV ACCESS; Start 11/05 at 14:30 IV Flush (NS Flush) 2 ml BID IVF Last administered on 11/07/16t 21:00; Start at 21:00 Acetaminophen (Tylenol) 500 mg Q4H PRN PO HEADACHE; Start 11/05/16 at 14:30 Acetaminophen/ Hydrocodone Bitart ([place] 7.5-325 Mg) 1 tab Q4H PRN PO PAIN SCALE 1 TO 7; Start 11/05/16 at 14:30 Morphine Sulfate (Morphine Inj) 2 mg Q4H PRN IV PAIN SCALE 8 TO 10; Start 11/05 at 14:30 Ondansetron HCl (Zofran Inj) 4 mg Q6H PRN IV NAUSEA; Start 11/05/16 at 14:30 Nitroglycerin (Nitrostat Sl) 0.4 mg Q5M PRN SL CHEST PAIN; Start 11/05/16 at 14 :30 Aspirin (Aspirin) 325 mg DAILY PO Last administered on 11/10/16 09:07; Start 11/06/16 at 09:00 Temazepam (Restoril) 15 mg HS PRN PO INSOMNIA; Start 11/05/16 at 14:30 Amlodipine Besylate (Norvasc) 5 mg DAILY PO Last administered on 11/10/16 09: 07; Start 11/06/16 at 09:00 Clopidogrel Bisulfate (Plavix) 75 mg DAILY PO Last administered on 11/07/16 09 :06; Start 11/06/16 at 09:00; Stop 11/07/16 at 11:29; Status DC Pravastatin Sodium (Pravachol) 20 mg DAILY PO Last administered on 11/10/16 09 :07; Start 11/06/16 at 09:00 Regadenoson 0.4 mg 0.4 mg STK-MED ONCE IV Last administered on 11/06/16 09:35 ; Start 11/06/16 at 09:35; Stop 11/06/16 at 09:36; Status DC Heparin Sodium/ Sodium Chloride (Heparin-NS/Pf Inj) 500 ml @ As Directed STK- MED ONCE .ROUTE Last administered on 11/07/16 10:13; Start 11/07/16 at 10:13; Stop 11/07/16 at 10:14; Status DC Midazolam HCl (Versed Inj) 2 mg STK-MED ONCE .ROUTE Last administered on 10:15; Start 11/07/16 at 10:15; Stop 11/07/16 at 10:16; Status DC Fentanyl Citrate (fentaNYL INJ) 100 mcg STK-MED ONCE .ROUTE Last administered on 11/07/16 10:15; Start 11/07/16 at 10:15; Stop 11/07/16 at 10:16; Status DC Heparin Sodium (Porcine) 26284 units 10,000 units STK-MED ONCE .ROUTE Last administered on 11/07/16 10:23; Start 11/07/16 at 10:23; Stop 11/07/16 at 10:24 ; Status DC Nitroglycerin (Nitroglycerin Inj) 5 ml @ As Directed STK-MED ONCE .ROUTE Last administered on 11/07/16 10:23; Start 11/07/16 at 10:23; Stop 11/07/16 at 10:24 ; Status DC Verapamil HCl (Isoptin Inj) 5 mg STK-MED ONCE .ROUTE Last administered on 10:24; Start 11/07/16 at 10:24; Stop 11/07/16 at 10:25; Status DC IV Flush (NS Flush) 2 ml BID IVF Last administered on 11/10/16 09:00; Start at 21:00 IV Flush (NS Flush) 2 ml UNSCH PRN IVF FLUSH AFTER USING IV ACCESS; Start 11/07 at 11:30 Iohexol (OMNIPAQUE 350 INJ (Script Coordinator)) 50 ml STK-MED ONCE OTHER ; Start at 11:33; Stop 11/07/16 at 11:34; Status DC IV Flush (NS Flush) 2 ml BID IV FLUSH Last administered on 11/10/16 09:03; Start 11/07/16 at 21:00 IV Flush 2 ml 2 ml UNSCH PRN IV FLUSH FLUSH AFTER USING IV ACCESS; Start at 13:30 Papaverine HCl 60 mg/Nitroglycerin 100 mcg/Diltiazem HCl 100 mg/Sodium Chloride 100.0 ml @ 0 mls/hr [employer] IRRIGATION ; Start 11/07/16 at 13:30; Stop at 13:29 Cefazolin Sodium 500 mg/Sodium Chloride 505 ml @ 0 mls/hr [employer] IRRIGATION ; Start 11/07/16 at 13:30; Stop 11/14/16 at 13:29 Cefazolin Sodium/ Dextrose (Ancef 2 Gm Premix) 50 ml @ 150 mls/hr [employer] IV ; Start 11/07/16 at 13:30; Stop 11/14/16 at 13:29 Metoprolol Tartrate (Lopressor) 12.5 mg [employer] PO ; Start 11/07/16 at 13:30; Stop 11/14/16 at 13:29 Chlorhexidine Gluconate 1 applic 1 applic [employer] TOPICAL ; Start 11/07/16 at 13:30; Stop 11/14/16 at 13:29 Insulin Human Regular/Sodium Chloride (NovoLIN R (IV INFUSION)/NS Inj) 100 ml @ 0 mls/hr [employer] IV ; Start 11/07/16 at 13:30; Stop 11/14/16 at 13:29 A/P Assessment and Plan A/P Chest pain Patient with increased risk factors to include age, male, hypertension, hyperlipidemia, history of tobacco use Serial cardiac enzymes negative. Nuclear stress test was performed which did indicate a moderate size partially reversible defect involving the anterior and apical kinsey. Akinesis involving the distal anterior apical wall with decreased ejection fraction 31%. Intermediate risk -s/p cardiac cath with multivessel disease -echo ; limited study- to be repeated. -CT surgery consulted- awaiting recommendations. -continue aspirin and statin Hypertension Continue home medications Hyperlipidemia Continue statin DVT prevention Sequential compression devices Discharge Planning d/w ; patient has declined any further cardiac work-up/ procedures. was cleared for discharge per cardiology. will dc home today. see med list. f/u; pcp and cardiology. time spent 31 min. Destiny Hernandez MD Nov 10, 2016 10:01
--- NOTE | 2016-11-10 12:37 | PD.CARD.PN ---
Subjective Subjective Remarks No chest pain, no shortness of breath Objective Medications Current Medications Medications (Trade) Dose Ordered Sig/Munira Route Start Time Stop Time Status Last Admin (NS Flush) 2 ml UNSCH PRN IVF 11/05/16 14:30 (NS Flush) 2 ml BID IVF 11/05/16 21:00 11/10/16 09:00 (Tylenol) 500 mg Q4H PRN PO 11/05/16 14:30 ([place] 7.5-325 Mg) 1 tab Q4H PRN PO 11/05/16 14:30 (Morphine Inj) 2 mg Q4H PRN IV 11/05/16 14:30 (Zofran Inj) 4 mg Q6H PRN IV 11/05/16 14:30 (Nitrostat Sl) 0.4 mg Q5M PRN SL 11/05/16 14:30 (Aspirin) 325 mg DAILY PO 11/06/16 09:00 11/10/16 09:07 (Restoril) 15 mg HS PRN PO 11/05/16 14:30 (Norvasc) 5 mg DAILY PO 11/06/16 09:00 11/10/16 09:07 (Pravachol) 20 mg DAILY PO 11/06/16 09:00 11/10/16 09:07 (NS Flush) 2 ml BID IVF 11/07/16 21:00 11/10/16 09:00 (NS Flush) 2 ml UNSCH PRN IVF 11/07/16 11:30 (NS Flush) 2 ml BID IV FLUSH 11/07/16 21:00 11/10/16 09:00 (NS Flush) 2 ml UNSCH PRN IV FLUSH 11/07/16 13:30 Vital Signs / I&O Vital Signs Date Time Temp Pulse Resp B/P Pulse Ox O2 Delivery O2 Flow Rate FiO2 11/10/16 12:00 74 11/10/16 11:00 66 11/10/16 11:00 97.4 68 18 132/74 96 11/10/16 10:00 83 11/10/16 09:00 88 11/10/16 08:00 91 11/10/16 07:30 97.6 71 16 126/67 95 11/10/16 07:30 81 11/10/16 06:21 96.5 68 14 117/50 98 11/10/16 06:00 72 11/10/16 05:00 71 11/10/16 04:00 71 11/10/16 03:00 67 11/10/16 02:00 66 11/10/16 01:00 69 11/10/16 00:31 96.5 83 14 115/55 95 11/10/16 00:00 64 11/09/16 23:00 65 11/09/16 22:00 58 11/09/16 21:16 96.4 63 14 156/70 95 11/09/16 21:00 66 11/09/16 20:00 73 11/09/16 19:00 70 11/09/16 17:00 66 11/09/16 16:00 97.8 63 18 155/67 98 11/09/16 13:00 98.7 68 18 137/87 98 11/09/16 13:00 61 I/O 11/09/16 11/09/16 11/09/16 11/10/16 11/10/16 11/10/16 07:00 15:00 23:00 07:00 15:00 23:00 Intake Total 240 ml 240 ml Output Total 1200 ml Balance 240 ml -1200 ml 240 ml Intake Oral 240 ml 240 ml Output Urine Total 1200 ml # Voids 4 3 # Bowel Movements 0 Physical Exam GENERAL: NAD SKIN: Warm and dry. HEAD: Atraumatic. Normocephalic. EYES: Pupils equal and round. No scleral icterus. No injection or drainage. ENT: No nasal bleeding or discharge. Mucous membranes pink and moist. NECK: Trachea midline. No JVD. CARDIOVASCULAR: Regular rate and rhythm. RESPIRATORY: No accessory muscle use. Clear to auscultation. Breath sounds equal bilaterally. GASTROINTESTINAL: Abdomen soft, non-tender, nondistended. Hepatic and splenic margins not palpable. MUSCULOSKELETAL: Extremities without clubbing, cyanosis, or edema. No obvious deformities. Right radial no hematoma NEUROLOGICAL: Awake and alert. No obvious cranial nerve deficits. Motor grossly within normal limits. Five out of 5 muscle strength in the arms and legs. Normal speech. PSYCHIATRIC: Appropriate mood and affect; insight and judgment normal. Assessment and Plan Problem List: (1) Multi-vessel coronary artery stenosis (2) Hypertension (3) Chest pain (4) Hyperlipidemia (5) History of CVA (cerebrovascular accident) Assessment and Plan 1) MVCAD - Prox LAD, Prox LCx, Distal LCx, non-dominant RCA 2) After discussion with his family, has decided he wants medical management, no bypass/intervention 3) Can be discharged today 4) Restart Plavix, con't ASA, add Lopressor 12.5mg BID 5) Follow up with Dr. Costa in the [facility] office ( sees Dr. Costa there) 6) If changes his mind, can reconsider revascularization Problem Qualifiers (1) Hypertension: Qualified Code: I15.9 - Secondary hypertension (2) Chest pain: Qualified Code: R07.2 - Precordial pain (3) Hyperlipidemia: Qualified Code: E78.5 - Hyperlipidemia, unspecified hyperlipidemia type Tim Rodriguez DO Nov 10, 2016 12:37
[2016-11-10] MEDS ORDERED: ASPI81CH CHEW (12:40)
[2016-11-10] MEDS ORDERED: METO25TA3 PO ×3 (12:40→13:53)
[2016-11-10] MEDS ORDERED: METO-309 PO (12:43)
--- NOTE | 2016-11-10 12:44 | HHI.DCPOC ---
Discharge Care Plan Diagnosis: (1) Multi-vessel coronary artery stenosis Your Health Problems Are: Chest Pain Goals to Promote Your Health * To prevent worsening of your condition and complications * To maintain your health at the optimal level Directions to Meet Your Goals Take your medications as prescribed Follow your dietary instruction Follow activity as directed Keep your appointments as scheduled Take your immunizations and boosters as scheduled If your symptoms worsen call your PCP, if no PCP go to Urgent Care Center or Emergency Room Smoking is Dangerous to Your Health. Avoid second hand smoke Call the 24-hour hour crisis hotline for domestic abuse at Destiny Hernandez MD Nov 10, 2016 12:44
--- NOTE | 2016-11-10 12:44 | HHI.DS ---
Discharge Summary Admission Date Nov 08, 2016 at 12:35 Discharge Date: Nov 10, 2016 Admitting Diagnosis chest pain (1) Chest pain ICD Code: R07.9 Diagnosis: Principal (2) Hypertension ICD Code: I10 Diagnosis: Secondary (3) Hyperlipidemia ICD Code: E78.5 Diagnosis: Secondary Procedures cardiac cath Brief History - From Admission 86 year-old [facility] male with known history of hypertension, carotid stenosis, history of stroke, peripheral vascular disease, hyperlipidemia who presented to hospital at the request of his primary medical doctor because of chest discomfort. Patient was at his doctor's office today for his normal check up. He notified his primary medical doctor that is been having pain in his chest for over the last 2-3 weeks. He describes it as a sharp pain in the middle part of his chest/epigastric region. Lasting for a couple seconds at a time. He states that it can happen when he is exerting himself. His has happened why he is lying down. He denies any nausea, vomiting, diaphoresis, shortness of breath, dyspnea. Because of the patient's risk factors his primary medical doctor sent him to the hospital to get a stress test. Patient did come to emergency department and because of that patient's primary doctors request was recommended observation chest pain center. At the time evaluating the patient he is asymptomatic. CBC/BMP: 11/08/16 0324 11/08/16 0324 Significant Findings Laboratory Tests Test 11/07/16 11/08/16 18:17 03:24 Urine Ketones 10 mg/dL (NEG) Neutrophils (%) (Auto) 78.8 % (16.0-70.0) Monocytes (%) (Auto) 8.3 % (0.0-8.0) Blood Urea Nitrogen 20 MG/DL (7-18) Estimat Glomerular Filtration 82 ML/MIN (>89) Rate Random Glucose 109 MG/DL (74-106) Imaging Last Impressions Lower Extremity Ultrasound 11/07/16 0000 Signed Impressions: Service Date/Time: Monday, November 07, 2016 16:04 - CONCLUSION: 1. Vein measurements as above. Exam within normal limits. Edward Frey MD Carotid Artery Ultrasound 11/07/16 0000 Signed Impressions: Service Date/Time: Monday, November 07, 2016 16:53 - CONCLUSION: 1. Findings are characteristic of at least a moderate carotid stenosis bilaterally. Findings better evaluated with carotid CTA. Edward Frey MD Myocardial Perfusion Scan Nuc Med 11/06/16 0600 Signed Impressions: Service Date/Time: October 09:43 - CONCLUSION: 1. Moderate sized partially reversible defect involving the anterior and apical kinsey. 2. Akinesis involving the distal anterior and apical kinsey with decreased calculated ejection fraction of 31%%. RISK CATEGORY: Intermediate (1-3%% Annual Mortality Rate) Bk Salazar MD Chest X-Ray 11/05/16 1334 Signed Impressions: Service Date/Time: Saturday, November 05, 2016 14:03 - CONCLUSION: 1. No acute pulmonary infiltrates. 2. Possible nipple shadow projected over the right lower lung. If clinically indicated, recommend a followup two-view chest x-ray with nipple markers Rex Linn MD PE at Discharge GENERAL: This is a well-nourished, well-developed patient, in no apparent distress. CARDIOVASCULAR: Regular rate and regular rhythm without murmurs, gallops, or rubs. RESPIRATORY: Clear to auscultation. Breath sounds equal bilaterally. No wheezes , rales, or rhonchi. GASTROINTESTINAL: Abdomen soft, non-tender, nondistended. Normal, active bowel sounds MUSCULOSKELETAL: Extremities without clubbing, cyanosis, or edema. NEURO: Alert & Oriented x4 to person, place, time, situation. Moves all ext x4 Hospital Course Chest pain Patient with increased risk factors to include age, male, hypertension, hyperlipidemia, history of tobacco use Serial cardiac enzymes negative. Nuclear stress test was performed which did indicate a moderate size partially reversible defect involving the anterior and apical kinsey. Akinesis involving the distal anterior apical wall with decreased ejection fraction 31%. Intermediate risk -s/p cardiac cath with multivessel disease -echo ; limited study- to be repeated. -CT surgery consulted- awaiting recommendations. -continue aspirin and statin Hypertension Continue home medications Hyperlipidemia Continue statin DVT prevention Sequential compression devices Pt Condition on Discharge: Stable Discharge Disposition: Discharge Home Discharge Time: > 30 minutes Discharge Instructions DIET: Follow Instructions for: Heart Healthy Diet Activities you can perform: Regular-No Restrictions Follow up Referrals: Cardiology PCP Follow-up New Medications: Aspirin (Aspirin) 81 Mg Chew 81 MG CHEW DAILY cad Days 30 Ref 0 TAB Metoprolol Tartrate (Metoprolol Tartrate) 25 Mg Tab 12.5 MG PO BID cad #60 Ref 0 TAB Continued Medications: Amlodipine (Amlodipine) 5 Mg Tab 5 MG PO DAILY Blood Pressure Management #30 Ref 0 TAB Clopidogrel (Plavix) 75 Mg Tab 75 MG PO DAILY Blood Clot Prevention #30 Ref 0 TAB Pravastatin (Pravastatin) 20 Mg Tab 20 MG PO DAILY Cholesterol Management #30 Ref 0 TAB Discontinued Medications: Aspirin (Aspirin) 325 Mg Tab 325 MG PO DAILY #30 Ref 0 TAB Dsetiny Hernandez MD Nov 10, 2016 12:44
--- NOTE | 2016-11-10 14:02 | PD.CAR.PN ---
CVT Progress Note Subjective/Hospital Course: pt has no SOB no chest pain wants to go home, has opted for no surgery Objective: GENERAL: SKIN: Warm and dry. HEAD: Normocephalic. EYES: No scleral icterus. No injection or drainage. NECK: Supple, trachea midline. No JVD or lymphadenopathy. CARDIOVASCULAR: Regular rate and rhythm without murmurs, gallops, or rubs. RESPIRATORY: Breath sounds equal bilaterally. No accessory muscle use. GASTROINTESTINAL: Abdomen soft, non-tender, nondistended. MUSCULOSKELETAL: No cyanosis, or edema. BACK: Nontender without obvious deformity. No CVA tenderness. Vital Signs Date Time Temp Pulse Resp B/P Pulse Ox O2 Delivery O2 Flow Rate FiO2 11/10/16 13:44 85 11/10/16 12:00 74 11/10/16 11:00 66 11/10/16 11:00 97.4 68 18 132/74 96 11/10/16 10:00 83 11/10/16 09:00 88 11/10/16 08:00 91 11/10/16 07:30 97.6 71 16 126/67 95 11/10/16 07:30 81 11/10/16 06:21 96.5 68 14 117/50 98 11/10/16 06:00 72 11/10/16 05:00 71 11/10/16 04:00 71 11/10/16 03:00 67 11/10/16 02:00 66 11/10/16 01:00 69 11/10/16 00:31 96.5 83 14 115/55 95 11/10/16 00:00 64 11/09/16 23:00 65 11/09/16 22:00 58 11/09/16 21:16 96.4 63 14 156/70 95 11/09/16 21:00 66 11/09/16 20:00 73 11/09/16 19:00 70 11/09/16 17:00 66 11/09/16 16:00 97.8 63 18 155/67 98 Result Diagram: 11/08/164 11/08/16323 (1) Multi-vessel coronary artery stenosis Plan: Assessment and Plan 1) Multi vessel CAD - Prox LAD, Prox LCx, Distal LCx, non-dominant RCA 2) further discussion with pt he wants medical management, no bypass/ intervention 3) Can be discharged today 4) Restart Plavix, con't ASA, add Lopressor 12.5mg BID 5) Follow up with Dr. Costa in the [facility] office ( sees Dr. Costa there) 6) If changes his mind, can reconsider revascularization/ f/u info for Dr Yaneils perdue (2) Hypertension (3) Chest pain (4) Hyperlipidemia (5) History of CVA (cerebrovascular accident) Problem Qualifiers (1) Hypertension: Qualified Code: I15.9 - Secondary hypertension (2) Chest pain: Qualified Code: R07.2 - Precordial pain (3) Hyperlipidemia: Qualified Code: E78.5 - Hyperlipidemia, unspecified hyperlipidemia type Tata Aviles Nov 10, 2016 14:01
--- NOTE | 2016-11-10 17:11 | EC ---
Study Study Date:11/10/2016 STUDY CONCLUSIONS SUMMARY - Left ventricle: The cavity size was normal. Wall thickness was normal. Systolic function was normal. The estimated ejection fraction was 55%. Wall motion was normal; there were no regional wall motion abnormalities. - Aortic valve: Calcified annulus. Trileaflet; moderately thickened, mildly calcified leaflets. - Pulmonary arteries: Systolic pressure was mildly increased. PA peak pressure: 44mm Hg (S). If LV function is below 40, please consider prescribing an ACEI or ARB or document rationale for non-use. PROCEDURE DATA STUDY STATUS: Elective. Procedure: Transthoracic echocardiography. Image quality was good. Scanning was performed from the parasternal, apical, and subcostal acoustic windows. Study completion: The patient tolerated the procedure well. Transthoracic echocardiography. M-mode, complete 2D, complete spectral Doppler, and color Doppler. Patient status: Inpatient. CARDIAC ANATOMY LEFT VENTRICLE: The cavity size was normal. Wall thickness was normal. Systolic function was normal. The estimated ejection fraction was 55%. Wall motion was normal; there were no regional wall motion abnormalities. AORTIC VALVE: Calcified annulus. Trileaflet; moderately thickened, mildly calcified leaflets. Doppler: Transvalvular velocity was within the normal range. There was no stenosis. No regurgitation. AORTA: Aortic root: The aortic root was normal in size. MITRAL VALVE: Structurally normal valve. Doppler: Transvalvular velocity was within the normal range. There was no evidence for stenosis. Trace regurgitation. LEFT ATRIUM: The atrium was normal in size. RIGHT VENTRICLE: The cavity size was normal. Wall thickness was normal. PULMONIC VALVE: Doppler: Transvalvular velocity was within the normal range. There was no evidence for stenosis. No regurgitation. TRICUSPID VALVE: Structurally normal valve. Doppler: Transvalvular velocity was within the normal range. Trace regurgitation. PULMONARY ARTERY: The main pulmonary artery was normal-sized. Systolic pressure was mildly increased. RIGHT ATRIUM: The atrium was normal in size. PERICARDIUM: There was no pericardial effusion. SYSTEMIC VEINS: Inferior vena cava: The vessel was normal in size. BASIC MEASUREMENTS ADULT NORMAL Left ventricle LV internal dimension, ED, chordal level, 49 mm 43-52 PLAX LV internal dimension, ES, chordal level, 37 mm 23-38 PLAX Fractional shortening, chordal level, PLAX *24 % >29 LV posterior wall thickness, ED 9.49 mm IVS/LVPW ratio, ED 1.09 <1.3 Ventricular septum Septal thickness, ED 10.3 mm Aortic valve Leaflet separation 19 mm 15-26 Right ventricle RV internal dimension, ED, PLAX 23 mm 19-38 BASIC MEASUREMENTS ADULT NORMAL Aortic valve Leaflet separation 19 mm 15-26 Aorta Root diameter, ED 36 mm 20-37 Left atrium Anterior-posterior dimension, ES 37 mm 19-40 LA/aortic root ratio 1.03 DOPPLER MEASUREMENTS ADULT NORMAL Main pulmonary artery Pressure, S *44 mm Hg =30 Tricuspid valve Regurgitant peak velocity 293 cm/s Peak RV-RA gradient, S 34 mm Hg Maximal regurgitant velocity 293 cm/s Systemic veins Estimated CVP 10 mm Hg Right ventricle RV pressure, S *44 mm Hg <30 LEGEND: Mean values are shown as u=mean value. Asterisk (*) carr values outside specified normal range. Prepared and signed by Alex Reno [id number]
--- NOTE | 2016-11-11 11:11 | RSPPFT ---
DATE OF PROCEDURE: 11/07/16 COMMENTS: Spirometry with FVC of 2.8 at 75% of predicted, FEV1 of 1.7 at 61%, FEV1/FVC ratio is decreased. Flow is decreased at FEF 25-75. Flow volume loop indicates an obstructive pattern. IMPRESSION: 1. Mild obstructive lung disease. 2. Post-bronchodilator study was not performed.
[2017-02-10] MEDS ORDERED: BACT800T5 PO (10:02)
[2017-02-10] MEDS ORDERED: TAMS5CAP PO (10:03)
[2017-03-02] MEDS ORDERED: TAMS5CAP PO (12:03)
[2017-03-02] MEDS ORDERED: BETH25TA2 PO (12:03)
== END 2016-11-10 14:39 | disposition home or self-care (01) | DRG 287 ==
LOC: PHED 13:15 → PHEDA 14:30 → PH3A 18:16 → N04A 11-06 18:55 → N04B 11-07 15:33 → HCIN 11-07 17:38 → OBSVTOIN 11-08 12:35
PROVIDERS: ADMIT Internal Medicine; ATTEND Internal Medicine
PROC: 4A023N7 Measurement of Cardiac Sampling and Pressure, Left Heart, Percutaneous Approach (ICD-10-PCS; 2016-11-07)
PROC: B2111ZZ Fluoroscopy of Multiple Coronary Arteries using Low Osmolar Contrast (ICD-10-PCS; principal; 2016-11-07 10:00)
DX: I25.10 Atherosclerotic heart disease of native coronary artery without angina pectoris (principal); I73.9 Peripheral vascular disease, unspecified; I65.29 Occlusion and stenosis of unspecified carotid artery; I10 Essential (primary) hypertension; E78.5 Hyperlipidemia, unspecified; Z86.73 Personal history of transient ischemic attack (TIA), and cerebral infarction without residual deficits; I71.4 Abdominal aortic aneurysm, without rupture; Z87.891 Personal history of nicotine dependence; H91.90 Unspecified hearing loss, unspecified ear; Z79.02 Long term (current) use of antithrombotics/antiplatelets; Z79.82 Long term (current) use of aspirin
CPT/HCPCS: 71010; 78452; 80048; 81001; 82550; 84484; 85025; 85610; 85730; 87641; 93005; 93017; 93306; 93454; 93880; 93970; 93998; 94010; A9502; C1769; C1893; G0378; J1644; J2250; J2785; J3010; Q9967

== ENCOUNTER 2017-01-11 08:52 | Inpatient (IN) | payer OTHER, MEDICARE ==
[2017-01-11] VITALS (13 sets, daily range): BP systolic 115–204; BP diastolic 56–91; PULSE 56–77; RESP 16–20; TEMP 97–97.7; O2SAT 93–97
[~2017-01-11] VITALS: Ht 177.8 cm; Wt 68.9 kg
[~2017-01-11 08:52] MED LIST changes: +AMLO5TAB2 PO; -ASPI325T PO; +ASPI81CH CHEW; -ATEN-102 PO; -DILT60TA33 PO; -LORTA5 PO; -LOVA20TA PO; +METO25TA3 PO; -MILKSUS5 PO; +PLAV75TA29 PO; +PRAV20TA2 PO
[2017-01-11] MEDS ORDERED: NITR1SUB3 SL (09:28)
[2017-01-11] MEDS ORDERED: ATOR20TA15 PO (09:28)
[2017-01-11] MEDS ORDERED: SODIUM CHLORIDE 0.9% FLUSH 10 ML FLUSH IVF PRN (09:30)
--- NOTE | 2017-01-11 09:42 | PD ---
HPI Chief Complaint: Chest Pain Time Seen by Provider: 09:25 Travel History International Travel<30 days: No Contact w/Intl Traveler<30days: No Traveled to known affect area: No History of Present Illness HPI This is an 86-year-old male with history of coronary artery disease, lipidemia, hypertension, who presents today with complaints of intermittent chest pain overnight. Patient reported he had 3 episodes of chest pain overnight that was relieved with nitroglycerin. He states that last evening he had similar episodes. He denies any nausea, diaphoresis, shortness of breath. The patient does state that he was told that he was a candidate for bypass however at the time he decided to medically manage his coronary artery disease. Patient denies any chest pain at the time of my examination. He has not taken aspirin. He reports the pain as left sided with no radiation. The pain is rated as a 4 -5 out of 10 when it was present. PFSH Past Medical History Hx Anticoagulant Therapy: Yes (PLAVIX) Heart Rhythm Problems: No Cancer: No Cardiovascular Problems: Yes High Cholesterol: Yes Chest Pain: No Congestive Heart Failure: No Cerebrovascular Accident: Yes Coronary Artery Disease: Yes Diabetes: No Diminished Hearing: Yes [place]) Endocrine: No Gastrointestinal Disorders: Yes Genitourinary: No Hypertension: Yes Musculoskeletal: No Neurologic: Yes Psychiatric: No Reproductive: No Respiratory: No Migraines: No Seizures: No Thyroid Disease: No Ulcer: No Past Surgical History Abdominal Surgery: Yes (APPY) Appendectomy: Yes Cardiac Surgery: Yes (CAROTID ARTERY SX RIGHT) Ear Surgery: No Eye Surgery: No Genitourinary Surgery: No Oral Surgery: No Pacemaker: No Thoracic Surgery: No Other Surgery: Yes Social History Alcohol Use: Yes (occasional beer) Tobacco Use: No (1987 QUIT) Substance Use: No Allergies-Medications (Allergen,Severity, Reaction): Coded Allergies: No Known Allergies (Unverified , 01/11/17) Reported Meds & Prescriptions Reported Meds & Active Scripts Active Metoprolol Tartrate 25 Mg Tab 12.5 Mg PO BID Aspirin 81 Mg Chew 81 Mg CHEW DAILY 30 Days Reported Atorvastatin (Atorvastatin Calcium) 20 Mg Tab 20 Mg PO HS Nitroglycerin SL (Nitroglycerin) 0.4 Mg Subl 0.4 Mg SL DIRECTED PRN ONE TABLET UNDER THE TONGUE NEEDED FOR CHEST PAIN, MAY REPEAT EVERY FIVE MINUTES FOR A TOTAL OF 3 DOSES OR CALL 911 IF NO RELIEF Plavix (Clopidogrel Bisulfate) 75 Mg Tab 75 Mg PO DAILY Amlodipine (Amlodipine Besylate) 5 Mg Tab 5 Mg PO DAILY Review of Systems Except as stated in HPI: all other systems reviewed are Neg General / Constitutional: No: Fever, Chills HENT: No: Headaches, Vertigo Cardiovascular: Positive: Chest Pain or Discomfort, No: Palpitations, Irregular Rhythm Respiratory: No: Cough, Shortness of Breath Gastrointestinal: No: Nausea, Vomiting, Abdominal Pain Musculoskeletal: No: Weakness, Pain Skin: No Rash, No Itching Neurologic: No: Weakness, Dizziness, Headache Physical Exam Narrative GENERAL: Well-developed well-nourished male in no acute respiratory distress. SKIN: Warm and dry. HEAD: Atraumatic. Normocephalic. EYES: No scleral icterus. No injection or drainage. ENT: Mucous membranes pink and moist. NECK: Trachea midline. No JVD. Supple CARDIOVASCULAR: Regular rate and rhythm. No murmur appreciated. RESPIRATORY: No accessory muscle use. Clear to auscultation. Breath sounds equal bilaterally. GASTROINTESTINAL: Abdomen soft, non-tender, nondistended. MUSCULOSKELETAL: No obvious deformities. No edema. NEUROLOGICAL: Awake and alert. No obvious cranial nerve deficits. Motor grossly within normal limits. Normal speech. PSYCHIATRIC: Appropriate mood and affect; insight and judgment normal. Data Data Last Documented VS Vital Signs Date Time Temp Pulse Resp B/P Pulse Ox O2 Delivery O2 Flow Rate FiO2 01/11/17 09:31 76 204/91 199/90 01/11/17 09:28 97 01/11/17 09:28 18 Room Air 01/11/17 08:55 97.5 Orders Electrocardiogram (01/11/17 09:25) Basic Metabolic Panel (Bmp) (01/11/17 09:25) Ckmb (Isoenzyme) Profile (01/11/17 09:25) Complete Blood Count With Diff (01/11/17 09:25) Magnesium (Mg) (01/11/17 09:25) Prothrombin Time / Inr (Pt) (01/11/17 09:25) Act Partial Throm Time (Ptt) (01/11/17 09:25) Troponin I (01/11/17 09:25) Chest, Single Ap (01/11/17 09:25) Ecg Monitoring (01/11/17 09:25) Bilateral Bp Monitoring (01/11/17 09:25) Iv Access Insert/Monitor (01/11/17 09:25) Oximetry (01/11/17 09:25) Oxygen Administration (01/11/17 09:25) Sodium Chloride 0.9% Flush (Ns Flush) (01/11/17 09:30) Aspirin Chew (Aspirin Chew) (01/11/17 10:30) Nitroglycerin 2% Oint (Nitroglycerin 2% (01/11/17 10:30) Admit Order (Ed Use Only) (01/11/17 12:02) Labs Laboratory Tests Test 01/11/17 09:30 White Blood Count 8.1 TH/MM3 Red Blood Count 4.82 MIL/MM3 Hemoglobin 14.7 GM/DL Hematocrit 42.5 % Mean Corpuscular Volume 88.2 FL Mean Corpuscular Hemoglobin 30.5 PG Mean Corpuscular Hemoglobin 34.6 % Concent Red Cell Distribution Width 13.1 % Platelet Count 228 TH/MM3 Mean Platelet Volume 9.9 FL Neutrophils (%) (Auto) 80.6 % Lymphocytes (%) (Auto) 12.7 % Monocytes (%) (Auto) 5.2 % Eosinophils (%) (Auto) 0.9 % Basophils (%) (Auto) 0.6 % Neutrophils # (Auto) 6.5 TH/MM3 Lymphocytes # (Auto) 1.0 TH/MM3 Monocytes # (Auto) 0.4 TH/MM3 Eosinophils # (Auto) 0.1 TH/MM3 Basophils # (Auto) 0.0 TH/MM3 CBC Comment DIFF FINAL Differential Comment Prothrombin Time 10.5 SEC Prothromb Time International 1.0 RATIO Ratio Activated Partial 25.8 SEC Thromboplast Time Sodium Level 141 MEQ/L Potassium Level 3.9 MEQ/L Chloride Level 103 MEQ/L Carbon Dioxide Level 31.6 MEQ/L Anion Gap 6 MEQ/L Blood Urea Nitrogen 12 MG/DL Creatinine 0.91 MG/DL Estimat Glomerular Filtration 79 ML/MIN Rate Random Glucose 116 MG/DL Calcium Level 9.1 MG/DL Magnesium Level 2.3 MG/DL Total Creatine Kinase 72 U/L Troponin I 0.12 NG/ML MDM Medical Decision Making Medical Screen Exam Complete: Yes Emergency Medical Condition: Yes Medical Record Reviewed: Yes Differential Diagnosis ACS versus muscle skeletal chest pain versus peptic ulcer disease Narrative Course 86-year-old male with a history of coronary artery disease, hypertension, hyperlipidemia, who presents today with complaints of intermittent chest pain 2 days. The patient states the pain was relieved with nitroglycerin. He states it was worse at night. There is no exacerbating or relieving factors. The patient's EKG showed ST depression in the inferior lateral leads. This was changed from previous EKG from October. Troponin was elevated at 0.12. This appears to be a non-ST elevation [place]. Dr. Asaf Larsen was consult to who is covering for Dr. Logan Costa, patient's automatic silk screen printer. He has come down to see the patient and written recommendation orders. [facility]. He is amenable to the admission. The patient has been given an aspirin 324 mg by mouth times one dose she's also had [address] ice on his anterior chest wall. Diagnosis Primary Impression: Non-ST elevation myocardial infarction (NSTEMI) Additional Impressions: Hypertension Hyperlipidemia History of CVA (cerebrovascular accident) Multi-vessel coronary artery stenosis Fausto Argueta MD Jan 11, 2017 09:42
[2017-01-11 09:50] LABS: AUTOMATED NEUTROPHIL # 6.5 TH/MM3 (1.8-7.7); BASOPHIL % 0.6 % (0.0-2.0); EOSINOPHIL # 0.1 TH/MM3 (0-0.4); EOSINOPHIL % 0.9 % (0.0-4.0); HEMATOCRIT 42.5 % (39.0-51.0); HEMO FLAGS DIFF FINAL; LYMPH % 12.7 % (9.0-44.0); MEAN CELL VOLUME 88.2 FL (80.0-100.0); MEAN CORPUSCULAR HEMOGLOBIN 30.5 PG (27.0-34.0); MEAN CORPUSCULAR HGB CONC 34.6 % (32.0-36.0); MONO % 5.2 % (0.0-8.0); NEUT % 80.6 % (16.0-70.0); PLATELET COUNT 228 TH/MM3 (150-450); RED BLOOD COUNT 4.82 MIL/MM3 (4.50-5.90); RED CELL DISTRIBUTION WIDTH 13.1 % (11.6-17.2); WHITE BLOOD COUNT 8.1 TH/MM3 (4.0-11.0)
[2017-01-11 10:05] LABS: APTT (PATIENT) 25.8 SEC (24.3-30.1); PROTHROMBIN TIME - PATIENT 10.5 SEC (9.8-11.6)
--- NOTE | 2017-01-11 10:06 | RADRPT ---
EXAM DATE/TIME: 01/11/2017 09:40 [facility] COMPARISON: CHEST SINGLE AP, November 05, 2016, 14:03. INDICATIONS : Chest pain. MEDICAL HISTORY : Cardiovascular disease. SURGICAL HISTORY : Appendectomy. ENCOUNTER: Initial ACUITY: 1 day PAIN SCORE: 2/10 LOCATION: [facility]. FINDINGS: A single view of the chest demonstrates the lungs to be symmetrically aerated without evidence of mas s, infiltrate or effusion. The cardiomediastinal contours are unremarkable. Osseous structures are intact. CONCLUSION: Normal examination. Tata Wilder MD on January 11, 2017 at 10:04 Board Certified Radiologist. This report was verified electronically.
[2017-01-11 10:22] LABS: BICARBONATE 31.6 MEQ/L (21.0-32.0); MAGNESIUM 2.3 MG/DL (1.5-2.5); POTASSIUM 3.9 MEQ/L (3.5-5.1)
[2017-01-11] MEDS ORDERED: ASPIRIN 81 MG CHEW TAB CHEW ONE (10:30)
[2017-01-11] MEDS ORDERED: NITROGLYCERIN 2% OINT 1 GM PACKET TOPICAL ONE (10:30)
[2017-01-11] MEDS ORDERED: ALPRAZolam 0.25 MG TAB PO PRN (12:30)
[2017-01-11] MEDS ORDERED: HEPARIN SODIUM - IV 10,000 UNITS/10 ML VIAL IV ONE (12:30)
--- NOTE | 2017-01-11 12:32 | HHI.HP ---
[facility] Service [facility] Primary Care Physician Zacarias Michael Do, MD Admission Diagnosis NSTEMI, hypertension, hyperlipedemia. Diagnoses: (1) Multi-vessel coronary artery stenosis (2) History of CVA (cerebrovascular accident) (3) Hyperlipidemia (4) Hypertension (5) Non-ST elevation myocardial infarction (NSTEMI) (6) Chest pain Chief Complaint: Chest pain Travel History International Travel<30 Days: No Contact w/Intl Traveler <30 Da: No Traveled to Known Affected Are: No History of Present Illness 86-year-old male with history of recent diagnosis of multivessel coronary disease October 2016 who declined back pain bypass/intervention after further discussion with cardiothoracic surgery and he elected only for medical management was discharged home on Plavix, aspirin and Lopressor presents today to the ED for evaluation of intermittent substernal chest pain without any radiation however associated with shortness of breath and described as pressure- like and rated 5/10 in intensity which started initially on the night of Thursday to Thursday 2 relieved with nitroglycerin. However last night, patient has a total of 3 episodes again relieved with nitroglycerin but decided to come to the hospital for further evaluation. Patient states, this time around he will more likely will opt for surgery. He denies any GI bleed. Review of Systems Other 12 systems reviewed and are negative except for the one mentioned in history of present illness Past Family Social History Past Medical History Hypertension Hyperlipidemia Carotid stenosis History of stroke Abdominal aortic aneurysm Peripheral vascular disease Past Surgical History Appendectomy Carotid endarterectomy right side Reported Medications Metoprolol Tartrate 25 Mg Tab 12.5 Mg PO BID Aspirin 81 Mg Chew 81 Mg CHEW DAILY 30 Days Atorvastatin (Atorvastatin Calcium) 20 Mg Tab 20 Mg PO HS Nitroglycerin SL (Nitroglycerin) 0.4 Mg Subl 0.4 Mg SL DIRECTED PRN ONE TABLET UNDER THE TONGUE NEEDED FOR CHEST PAIN, MAY REPEAT EVERY FIVE MINUTES FOR A TOTAL OF 3 DOSES OR CALL 911 IF NO RELIEF Plavix (Clopidogrel Bisulfate) 75 Mg Tab 75 Mg PO DAILY Amlodipine (Amlodipine Besylate) 5 Mg Tab 5 Mg PO DAILY Allergies: Coded Allergies: No Known Allergies (Unverified , 3/26/17) Family History Reviewed and patient states that family lived into their 90s. Social History Alcohol Use: Yes (occasional beer) Tobacco Use: No (1987 QUIT) Substance Use: No Physical Exam Vital Signs Vital Signs Date Time Temp Pulse Resp B/P Pulse Ox O2 Delivery O2 Flow Rate FiO2 01/11/17 09:31 76 204/91 199/90 01/11/17 09:28 97 01/11/17 09:28 18 97 Room Air 01/11/17 08:55 97.5 77 20 189/82 93 Room Air Physical Exam GENERAL: This is a well-nourished, well-developed patient, in no apparent distress. SKIN: No rashes, ecchymoses or lesions. Cool and dry. HEAD: Atraumatic. Normocephalic. No temporal or scalp tenderness. EYES: Pupils equal round and reactive. Extraocular motions intact. No scleral icterus. No injection or drainage. ENT: Nose without bleeding, purulent drainage or septal hematoma. Throat without erythema, tonsillar hypertrophy or exudate. Uvula midline. Airway patent. NECK: Trachea midline. No JVD or lymphadenopathy. Supple, nontender, no meningeal signs. CARDIOVASCULAR: Regular rate and rhythm without murmurs, gallops, or rubs. RESPIRATORY: Clear to auscultation. Breath sounds equal bilaterally. No wheezes , rales, or rhonchi. GASTROINTESTINAL: Abdomen soft, non-tender, nondistended. No hepato-splenomegaly , or palpable masses. No guarding. MUSCULOSKELETAL: Extremities without clubbing, cyanosis, or edema. No joint tenderness, effusion, or edema noted. No calf tenderness. Negative Homans sign bilaterally. NEUROLOGICAL: Awake and alert. Cranial nerves II through XII intact. Motor and sensory grossly within normal limits. Five out of 5 muscle strength in all muscle groups. Normal speech. Laboratory Laboratory Tests Test 01/11/17 09:30 White Blood Count 8.1 Red Blood Count 4.82 Hemoglobin 14.7 Hematocrit 42.5 Mean Corpuscular Volume 88.2 Mean Corpuscular Hemoglobin 30.5 Mean Corpuscular Hemoglobin 34.6 Concent Red Cell Distribution Width 13.1 Platelet Count 228 Mean Platelet Volume 9.9 Neutrophils (%) (Auto) 80.6 Lymphocytes (%) (Auto) 12.7 Monocytes (%) (Auto) 5.2 Eosinophils (%) (Auto) 0.9 Basophils (%) (Auto) 0.6 Neutrophils # (Auto) 6.5 Lymphocytes # (Auto) 1.0 Monocytes # (Auto) 0.4 Eosinophils # (Auto) 0.1 Basophils # (Auto) 0.0 CBC Comment DIFF FINAL Differential Comment Prothrombin Time 10.5 Prothromb Time International 1.0 Ratio Activated Partial 25.8 Thromboplast Time Sodium Level 141 Potassium Level 3.9 Chloride Level 103 Carbon Dioxide Level 31.6 Anion Gap 6 Blood Urea Nitrogen 12 Creatinine 0.91 Estimat Glomerular Filtration 79 Rate Random Glucose 116 Calcium Level 9.1 Magnesium Level 2.3 Total Creatine Kinase 72 Troponin I 0.12 Result Diagram: 01/11/1792901/11/17929 Imaging Last Impressions Chest X-Ray 01/11/17924 Signed Impressions: Service Date/Time: Wednesday, January 11, 2017 09:40 - CONCLUSION: Normal examination. Tata Wilder MD Assessment and Plan Problem List: (1) Multi-vessel coronary artery stenosis ICD Code: I25.10 Status: Acute (2) Non-ST elevation myocardial infarction (NSTEMI) ICD Code: I21.4 Status: Acute (3) Hypertension ICD Code: I10 Status: Acute (4) Chest pain ICD Code: R07.9 Status: Acute (5) Hyperlipidemia ICD Code: E78.5 Status: Acute (6) History of CVA (cerebrovascular accident) ICD Code: Z86.73 Status: Acute Assessment and Plan 86-year-old man with 1) recent diagnosis of Multi vessel CAD October 2016 - Prox LAD, Prox LCx, Distal LCx, non-dominant RCA. Patient then refused bypass/intervention and now presents with non-ST elevation [place] -Chest x-ray noted and reviewed by me without any cardio pulmonary disease -Cardiology consultation -Start heparin drip, Norvasc 2.5 mg daily, Lopressor 25 mg twice a day, Nitropaste and Lipitor 20 mg daily -Recheck 2-D echo -Reconsider revascularization versus evaluation from CTS for CABG 2) Hypertension On Norvasc 2.5 mg daily and Lopressor 25 mg daily 3) Hyperlipidemia Continue statin DVT prophylaxis: Heparin drip Code Status Full code Discussed Condition With Patient, ED physician Physician Certification 2 Midnight Certification Type: Admission for Inpatient Services Order for Inpatient Services The services are ordered in accordance with Medicare regulations or non- Medicare payer requirements, as applicable. In the case of services not specified as inpatient-only, they are appropriately provided as inpatient services in accordance with the 2-midnight benchmark. Estimated LOS (days): 2 days is the estimated time the patient will need to remain in the hospital, assuming treatment plan goals are met and no additional complications. Post-Hospital Plan: Not yet determined Taurus Flores MD Jan 11, 2017 12:32
[2017-01-11] MEDS ORDERED: NALOXONE HCL 0.4 MG/ML AMP IV PRN (12:45)
[2017-01-11] MEDS ORDERED: ONDANSETRON HCL 4 MG/2 ML VIAL IVP PRN (12:45)
[2017-01-11] MEDS ORDERED: ACETAMINOPHEN 325 MG TAB PO PRN ×2 (12:45)
[2017-01-11] MEDS ORDERED: SODIUM CHLORIDE 0.9% FLUSH 10 ML FLUSH IV FLUSH PRN (12:45)
[2017-01-11] MEDS: METOPROLOL TARTRATE 25 MG TAB PO SCH ×2 (13:13→20:53)
--- NOTE | 2017-01-11 13:13 | MB ---
cc: ANGELICA ALBERTS DATE OF CONSULTATION: 01/11/2017 CHIEF COMPLAINT Chest pain. HISTORY OF PRESENT ILLNESS Naveen Cedneo is an 86 year-old man followed by Dr. Logan Costa recently cared for by Dr. Rodriguez when he was hospitalized in October. He was now readmitted with chest pain and abnormal EKG and abnormal troponin. The patient has known cardiovascular disease. He a left carotid endarterectomy October 27, 2013. He was admitted to the hospital in October for unstable angina. Troponins then were normal. He had an abnormal nuclear stress test. He had a cardiac catheterization by Dr. Rodriguez November 07, 2016. He had a left dominant circulation with a normal left main. The left anterior descending artery had 80 to 90% proximal disease and 50 to 60% mid disease. The circumflex artery was dominant and had 80 to 90% proximal disease and 70 to 80% distal disease. From what I can tell, the lesions were not particularly amenable to percutaneous intervention so cardiothoracic surgery was consulted. I got the impression from reading the notes that surgery was going to operate on him. He was reluctant and opted for medical management. He had been having angina about twice a day, usually it would go away by itself after 10 minutes of rest, so he never had to take any nitroglycerin. It did, however, diminish his activity level. He was normally much more active. He did purposely cut back activity to avoid getting angina. He says that he has difficulty sleeping and this has been chronic for him. Thursday night he went to bed around 11 p.m. and at 12:30 a.m. he had severe chest pain. He took nitroglycerin and the pain went away. Two hours later the pain came back and he did the same thing, and the pain went away. Thursday he felt pretty good. He did not have any chest pain during the day. He says he cannot walk more than about a quarter mile normally or he will get angina. Around 10 p.m. last night he went to bed and at 12:40 he had very severe chest pain. He took nitroglycerin with relief and two hours later it came back. He had a severe episode at 7 a.m. this morning, so at that point he came into the ER. His EKG showed marked ST depression much more prominent than his prior tracing. His troponin is elevated at 0.12. He has had nitroglycerin ointment applied. At the time I am seeing him he is currently pain free. PAST MEDICAL HISTORY: 1. Hypertension. 2. Hyperlipidemia. 3. Carotid disease with previous left carotid endarterectomy. 4. Prior stroke. 5. History of aortic aneurysm. 6. History of peripheral arterial disease. SOCIAL HISTORY: He smoked from age 17 until 1986. He used to work for [employer] He is . His has dementia. He has two sons, one who lives with him. REVIEW OF SYSTEMS: He denies any GI problems, any urination problems. Remaining of review of systems is normal. PHYSICAL EXAMINATION: Reveals an elderly, but very alert, normal mentation, well-developed male in no acute distress. VITAL SIGNS: Charted. HEENT: Unremarkable. NECK: Negative for bruits. CHEST: Clear to auscultation. CARDIAC: Normal S1-S2. Regular rate and rhythm. 1 to 2/6 early systolic ejection murmur, no S3 gallop. ABDOMEN: Soft, nontender. No masses. EXTREMITIES: No clubbing or cyanosis. He has mild swelling of the right leg which he related to a recluse spider bite that looks like venous insufficiency type changes. I can appreciate femoral pulses easily. Pedis pulses are palpable but seem diminished. EKG: Normal sinus rhythm with several millimeters of ST depression in every lead except V1, V2, AVL and AVR. His troponin is elevated at 0.12. Creatinine is 0.91. Hematocrit is 42.5. HOME MEDICATIONS: 1. Amlodipine 5 milligrams. 2. Plavix 75 milligrams. 3. Atorvastatin 20 milligrams. 4. Metoprolol 12.5 milligrams p.o. b.i.d. 5. Aspirin 80 milligrams daily. IMPRESSION/PLAN: Acute non ST segment elevation MS with known critical coronary artery disease in this elderly but spry 86 year-old man. I have started IV heparin, increasing his metoprolol to 25 b.i.d., adding nitro paste every six hours. Reconsult cardiac surgery. I am going to review his cath films to see whether percutaneous option is even much of an option although it does not sound like it from reading the notes. Will reconsult Dr. Hilario, who is the surgeon who saw him last. Check a verify now test. Will hold the Plavix. If he needs bypass, would like to see that the antiplatelet is diminished to reduce the risk of bleeding surgically. Obviously he is high-risk no matter what we do because he is 86 years old. Surgical revascularization may be indicated considering his fairly intact physical status, good kidney function, etc. Further therapy to be determined. MD DIVYA Becerra/RICARDO /12:27 PM /12:52 PM
[2017-01-11] MEDS ORDERED: PILL SPLITTER OTHER PRN (13:15)
[2017-01-11] MEDS: HEPARIN-D5W INJ 250 ML IV SCH (13:54)
[2017-01-11 15:36] LABS: P2Y12 REACTION UNITS (PRU) 139 PRU (194-418)
[2017-01-11] MEDS ORDERED: HEPARIN SODIUM - IV 10,000 UNITS/10 ML VIAL IV PRN (18:15)
[2017-01-11] MEDS: NITROGLYCERIN 2% OINT 1 GM PACKET TOPICAL SCH ×2 (18:32→23:47)
[2017-01-11 19:59] LABS: APTT (PATIENT) 37.5 SEC (24.3-30.1)
[2017-01-11] MEDS: SODIUM CHLORIDE 0.9% FLUSH 10 ML FLUSH IV FLUSH SCH (20:52)
[2017-01-11] MEDS: HEPARIN SODIUM - IV 10,000 UNITS/10 ML VIAL IV PRN (20:54)
[2017-01-12] VITALS (28 sets, daily range): BP systolic 115–138; BP diastolic 59–74; PULSE 52–80; RESP 16–18; TEMP 97.5–97.9; O2SAT 94–98
[2017-01-12 03:50] LABS: ALT (GPT) 20 U/L (12-78); ANION GAP 7 MEQ/L (5-15); AST (GOT) 17 U/L (15-37); BICARBONATE 28.3 MEQ/L (21.0-32.0); BLOOD UREA NITROGEN 14 MG/DL (7-18); CHLORIDE 107 MEQ/L (98-107); GLOMERULAR FILTRATION RATE 102 ML/MIN (>89); POTASSIUM 3.9 MEQ/L (3.5-5.1); SODIUM (NA) 142 MEQ/L (136-145)
[2017-01-12 03:54] LABS: ALKALINE PHOSPHATASE 76 U/L (45-117); CREATINE KINASE 129 U/L (39-308); TOTAL BILIRUBIN ADULT 0.5 MG/DL (0.2-1.0)
[2017-01-12] MEDS: NITROGLYCERIN 2% OINT 1 GM PACKET TOPICAL SCH ×4 (06:00→22:52)
--- NOTE | 2017-01-12 07:16 | HHI.PR ---
Subjective Remarks Follow-up multivessel coronary stenosis 01/12/17-patient seen and examined, denies any more episodes of chest pressure since admission Objective Vitals Vital Signs Date Time Temp Pulse Resp B/P Pulse Ox O2 Delivery O2 Flow Rate FiO2 01/12/17 06:00 60 01/12/17 05:00 58 01/12/17 04:00 60 01/12/17 03:20 67 16 138/74 95 01/12/17 03:00 62 01/12/17 02:00 68 01/12/17 01:00 60 01/12/17 00:00 60 01/11/17 23:38 66 16 115/58 94 01/11/17 23:00 56 01/11/17 22:00 62 01/11/17 21:00 62 01/11/17 20:00 64 01/11/17 19:30 97.0 67 16 119/56 94 01/11/17 19:00 71 01/11/17 18:00 66 01/11/17 17:35 97.7 66 18 149/82 97 01/11/17 16:00 69 18 154/73 96 Room Air 01/11/17 09:31 76 204/91 199/90 01/11/17 09:28 97 01/11/17 09:28 18 97 Room Air 01/11/17 08:55 97.5 77 20 189/82 93 Room Air I/O 01/11/17 01/11/17 01/11/17 01/12/17 01/12/17 01/12/17 07:00 15:00 23:00 07:00 15:00 23:00 Intake Total 320 ml Output Total 450 ml Balance -130 ml Intake Oral 200 ml IV Total 120 ml Output Urine Total 450 ml Result Diagram: 01/11/1730 01/12/17 0304 Imaging Last Impressions Chest X-Ray 01/11/17 09 Signed Impressions: Service Date/Time: Wednesday, January 11, 2017 09:40 - CONCLUSION: Normal examination. Tata Wilder MD Objective Remarks GENERAL: NAD SKIN: Warm and dry. HEAD: Normocephalic. EYES: No scleral icterus. No injection or drainage. NECK: Supple, trachea midline. No JVD or lymphadenopathy. CARDIOVASCULAR: Regular rate and rhythm without murmurs, gallops, or rubs. RESPIRATORY: Breath sounds equal bilaterally. No accessory muscle use. GASTROINTESTINAL: Abdomen soft, non-tender, nondistended. MUSCULOSKELETAL: No cyanosis, or edema. BACK: Nontender without obvious deformity. No CVA tenderness. A/P Problem List: (1) Multi-vessel coronary artery stenosis ICD Code: I25.10 Status: Acute (2) Non-ST elevation myocardial infarction (NSTEMI) ICD Code: I21.4 Status: Acute (3) Hypertension ICD Code: I10 Status: Chronic (4) Chest pain ICD Code: R07.9 Status: Acute (5) Hyperlipidemia ICD Code: E78.5 Status: Chronic (6) History of CVA (cerebrovascular accident) ICD Code: Z86.73 Status: Chronic Assessment and Plan 86-year-old man with 1) recent diagnosis of Multi vessel CAD October 2016 - Prox LAD, Prox LCx, Distal LCx, non-dominant RCA. Patient then refused bypass/intervention and now presents with non-ST elevation [place] -Chest x-ray without any cardio pulmonary disease -Appreciate input from Cardiology -Continue heparin drip, Norvasc 2.5 mg daily, Lopressor 25 mg twice a day, Nitropaste and Lipitor 20 mg daily - 2-D echo pending -Reconsider revascularization versus evaluation from CTS for CABG -Consult cardiothoracic surgery 2) Hypertension On Norvasc 2.5 mg daily and Lopressor 25 mg daily 3) Hyperlipidemia Continue statin DVT prophylaxis: Heparin drip Taurus Flores MD Jan 12, 2017 07:16
[2017-01-12] MEDS: SODIUM CHLORIDE 0.9% FLUSH 10 ML FLUSH IV FLUSH SCH ×2 (09:00→20:31)
--- NOTE | 2017-01-12 09:25 | PD.CARD.PN ---
Subjective Subjective Remarks No angina. He has made the decision to have CABG. No new complaints. Explained to him that surgery needs to do their eval and his clopidogrel needs to wear off (see Verify Now results) Objective Medications Current Medications Medications (Trade) Dose Ordered Sig/Munira Route Start Time Stop Time Status Last Admin (Heparin Inj) 5,000 units UNSCH PRN IV 01/11/17 18:15 Heparin Sodium (Porcine) 2500 units 2,500 units UNSCH PRN IV 01/11/17 18:15 01/11/17 20:54 (Heparin-D5W Inj) 250 ml @ 0 mls/hr TITRATE IV 01/11/17 12:15 01/11/17 13:54 (Nitroglycerin 2% Oint) 1 inch Q6HR TOPICAL 01/11/17 18:00 01/12/17 06:00 (Aspirin Chew) 81 mg DAILY PO 01/12/17 09:00 (Lopressor) 25 mg Q12HR PO 01/11/17 13:00 01/11/17 20:53 (Norvasc) 2.5 mg DAILY PO 01/12/17 09:00 (Xanax) 0.25 mg Q6H PRN PO 01/11/17 12:30 (Lipitor) 20 mg DAILY PO 01/12/17 09:00 (NS Flush) 2 ml UNSCH PRN IV FLUSH 01/11/17 12:45 (NS Flush) 2 ml BID IV FLUSH 01/11/17 21:00 (Tylenol) 650 mg Q4H PRN PO 01/11/17 12:45 (Zofran Inj) 4 mg Q6H PRN IVP 01/11/17 12:45 (Tylenol) 650 mg Q6H PRN PO 01/11/17 12:45 (Morphine Inj) 4 mg Q3H PRN IV 01/11/17 12:45 (Narcan Inj) 0.4 mg UNSCH PRN IV 01/11/17 12:45 (Pill Splitter) 1 ea UNSCH PRN OTHER 01/11/17 13:15 Vital Signs / I&O Vital Signs Date Time Temp Pulse Resp B/P Pulse Ox O2 Delivery O2 Flow Rate FiO2 01/12/17 06:00 60 01/12/17 05:00 58 01/12/17 04:00 60 01/12/17 03:20 67 16 138/74 95 01/12/17 03:00 62 01/12/17 02:00 68 01/12/17 01:00 60 01/12/17 00:00 60 01/11/17 23:38 66 16 115/58 94 01/11/17 23:00 56 01/11/17 22:00 62 01/11/17 21:00 62 01/11/17 20:00 64 01/11/17 19:30 97.0 67 16 119/56 94 01/11/17 19:00 71 01/11/17 18:00 66 01/11/17 17:35 97.7 66 18 149/82 97 01/11/17 16:00 69 18 154/73 96 Room Air 01/11/17 09:31 76 204/91 199/90 01/11/17 09:28 97 01/11/17 09:28 18 97 Room Air I/O 01/11/17 01/11/17 01/11/17 01/12/17 01/12/17 01/12/17 07:00 15:00 23:00 07:00 15:00 23:00 Intake Total 320 ml Output Total 450 ml Balance -130 ml Intake Oral 200 ml IV Total 120 ml Output Urine Total 450 ml Physical Exam GENERAL: Well developed, well nourished. No acute distress. HEENT: Jugular venous pressure is normal. CHEST: Lungs clear to auscultation bilaterally. Unlabored respiratory effort. CARDIAC: Regular rate and rhythm without S3, S4, 2/6 JOSE. ABDOMEN: Soft, nontender, no hepatosplenomegaly. Bowel sounds present. EXTREMITIES: No clubbing, cyanosis, or edema. Laboratory Laboratory Tests Test 01/11/17 01/11/17 01/11/17 01/11/17 09:30 14:42 19:31 21:15 White Blood Count 8.1 TH/MM3 Red Blood Count 4.82 MIL/MM3 Hemoglobin 14.7 GM/DL Hematocrit 42.5 % Mean Corpuscular Volume 88.2 FL Mean Corpuscular Hemoglobin 30.5 PG Mean Corpuscular Hemoglobin 34.6 % Concent Red Cell Distribution Width 13.1 % Platelet Count 228 TH/MM3 Mean Platelet Volume 9.9 FL Neutrophils (%) (Auto) 80.6 % Lymphocytes (%) (Auto) 12.7 % Monocytes (%) (Auto) 5.2 % Eosinophils (%) (Auto) 0.9 % Basophils (%) (Auto) 0.6 % Neutrophils # (Auto) 6.5 TH/MM3 Lymphocytes # (Auto) 1.0 TH/MM3 Monocytes # (Auto) 0.4 TH/MM3 Eosinophils # (Auto) 0.1 TH/MM3 Basophils # (Auto) 0.0 TH/MM3 CBC Comment DIFF FINAL Differential Comment Prothrombin Time 10.5 SEC Prothromb Time International 1.0 RATIO Ratio Activated Partial 25.8 SEC 37.5 SEC Thromboplast Time Sodium Level 141 MEQ/L Potassium Level 3.9 MEQ/L Chloride Level 103 MEQ/L Carbon Dioxide Level 31.6 MEQ/L Anion Gap 6 MEQ/L Blood Urea Nitrogen 12 MG/DL Creatinine 0.91 MG/DL Estimat Glomerular Filtration 79 ML/MIN Rate Random Glucose 116 MG/DL Calcium Level 9.1 MG/DL Magnesium Level 2.3 MG/DL Total Creatine Kinase 72 U/L 75 U/L 94 U/L Troponin I 0.12 NG/ML 0.42 NG/ML 0.39 NG/ML Platelet Function P2Y12 React 139 PRU Units Test 01/12/17 03:04 Activated Partial 52.0 SEC Thromboplast Time Sodium Level 142 MEQ/L Potassium Level 3.9 MEQ/L Chloride Level 107 MEQ/L Carbon Dioxide Level 28.3 MEQ/L Anion Gap 7 MEQ/L Blood Urea Nitrogen 14 MG/DL Creatinine 0.73 MG/DL Estimat Glomerular Filtration 102 ML/MIN Rate Random Glucose 93 MG/DL Calcium Level 8.6 MG/DL Total Bilirubin 0.5 MG/DL Aspartate Amino Transf 17 U/L (AST/SGOT) Alanine Aminotransferase 20 U/L (ALT/SGPT) Alkaline Phosphatase 76 U/L Total Creatine Kinase 129 U/L Troponin I 0.38 NG/ML Total Protein 6.3 GM/DL Albumin 3.3 GM/DL Imaging Last 48 hours Impressions Chest X-Ray 01/11/17 0925 Signed Impressions: Service Date/Time: Wednesday, January 11, 2017 09:40 - CONCLUSION: Normal examination. Tata Wilder MD Assessment and Plan Problem List: (1) Non-ST elevation myocardial infarction (NSTEMI) Assessment and Plan: troponin rise is small. ST depression back to baseline. He has stabilized (2) Hypertension Assessment and Plan: stable (3) Hyperlipidemia Assessment and Plan: on statin (4) Multi-vessel coronary artery stenosis Assessment and Plan: disease too complex for Dr. Rodriguez or I to consider PCI. CABG is best option (5) Antiplatelet or antithrombotic long-term use Assessment and Plan: Verify now tests suggest nee needs a few days. Last dose of clopidogrel was Thursday. Assessment and Plan CT surgical consult pending. Asaf Larsen MD Jan 12, 2017 09:25
[2017-01-12] MEDS: amLODIPine BESYLATE 5 MG TAB PO SCH (09:48)
[2017-01-12] MEDS: METOPROLOL TARTRATE 25 MG TAB PO SCH ×2 (09:48→20:34)
[2017-01-12] MEDS: ASPIRIN 81 MG CHEW TAB PO SCH (09:48)
[2017-01-12] MEDS: ATORVASTATIN 20 MG TAB PO SCH (09:48)
[2017-01-12 11:08] LABS: APTT (PATIENT) 35.2 SEC (24.3-30.1)
[2017-01-12] MEDS: HEPARIN SODIUM - IV 10,000 UNITS/10 ML VIAL IV PRN ×2 (11:58→20:38)
--- NOTE | 2017-01-12 14:05 | EKG ---
Date Performed: 01/11/2017 Time Performed: 09:16:45 PTAGE: 86 years EKG: Sinus rhythm ST DEVIATION AND MODERATE T-WAVE ABNORMALITY, CONSIDER LATERAL ISCHEMIA Inferior lateral ST depressi on is new since prior tracing, can not rule out ischemia, Clinical correlation is strongly recommende d ABNORMAL ECG PREVIOUS TRACING : 11/05/2016 19.55 DOCTOR: Nagi Ceron Interpretating Date/Time 01/12/2017 14:01:51
--- NOTE | 2017-01-12 14:08 | EKG ---
Date Performed: 01/11/2017 Time Performed: 15:39:38 PTAGE: 86 years EKG: Sinus rhythm ST DEVIATION AND MODERATE T-WAVE ABNORMALITY, CONSIDER ANTERIOR ISCHEMIA Non-specific inferior later al ST changes are present, does improve compared to prior tracing ABNORMAL ECG PREVIOUS TRACING : 01/11/2017 09.16 DOCTOR: Nagi Ceron Interpretating Date/Time 01/12/2017 14:04:20
--- NOTE | 2017-01-12 14:47 | EC ---
Study Study Date:01/12/2017 STUDY CONCLUSIONS SUMMARY - Procedure narrative: Image quality was poor. The study was technically limited due to poor acoustic window availability. Technically difficult study, difficult to determine ejection fraction and possible valvulopathies. - Left ventricle: The cavity size was normal. Systolic function was probably normal. The estimated ejection fraction was in the range of 55% to 60%. If LV function is below 40, please consider prescribing an ACEI or ARB or document rationale for non-use. PROCEDURE DATA STUDY STATUS: Elective. Procedure: Transthoracic echocardiography. Image quality was poor. The study was technically limited due to poor acoustic window availability. Scanning was performed from the parasternal, apical, and subcostal acoustic windows. Study completion: The patient tolerated the procedure well. Transthoracic echocardiography. M-mode, complete 2D, complete spectral Doppler, and color Doppler. Height: Height: 70in. Weight: Weight: 156.7lb. Body mass index: BMI: 22.5kg/m^2. Body surface area: BSA: 1.88m^2. Patient status: Inpatient. CARDIAC ANATOMY LEFT VENTRICLE: The cavity size was normal. Systolic function was probably normal. The estimated ejection fraction was in the range of 55% to 60%. Images were inadequate for LV wall motion assessment. AORTIC VALVE: Not well visualized. Doppler: There was no stenosis. Valve area: 2.84cm^2 (Vmax). Indexed valve area: 1.51cm^2/m^2 (Vmax). MITRAL VALVE: Not well visualized. Doppler: There was no evidence for stenosis. PULMONIC VALVE: Not well visualized. TRICUSPID VALVE: Not well visualized. Doppler: There was no evidence for stenosis. Trace regurgitation. Patient weight: 156.7lb _Ejection fraction:_ 65-75% _Fractional shortening:_ 32% up to 5Kg 5-11.5Kg 11.6-22.9Kg 23-45Kg 45-57Kg Aortic Root 7-13 <17 13-22 17-27 17-27 LA diam 6-13 <23 24-38 33-47 37-40 RVID 10-17 7-15 7-15 7-18 8-17 LVIDd 12-22 <32 24-38 33-47 37-40 LVPW 2-4 3-6 5-7 6-8 7-8 IVS 2-4 3-6 5-7 6-8 7-8 BASIC MEASUREMENTS ADULT NORMAL Left ventricle LV internal dimension, ED, chordal *54.8 mm 43-52 level, PLAX LV internal dimension, ES, chordal *41.8 mm 23-38 level, PLAX Fractional shortening, chordal level, *24 % >29 PLAX LV posterior wall thickness, ED 8.46 mm IVS/LVPW ratio, ED 1.06 <1.3 Ventricular septum Septal thickness, ED 8.97 mm Aortic valve Leaflet separation 26 mm 15-26 BASIC MEASUREMENTS ADULT NORMAL Aortic valve Leaflet separation 26 mm 15-26 Aorta Root diameter, ED 28 mm 20-37 Left atrium Anterior-posterior dimension, ES 38 mm 19-40 Anterior-posterior dimension index, ES 2.02 cm/m^2 <2.2 LA/aortic root ratio 1.36 DOPPLER MEASUREMENTS ADULT NORMAL Main pulmonary artery Pressure, S 21 mm Hg =30 Aortic valve Peak velocity, S 92.3 cm/s Valve area, Vmax 2.84 cm^2 Valve area index, Vmax 1.51 cm^2/m^2 Mitral valve Peak E-wave velocity 48.4 cm/s Peak A-wave velocity 43.9 cm/s Deceleration time *352 ms 150-230 Peak E/A ratio 1.1 Tricuspid valve Regurgitant peak velocity 212 cm/s Peak RV-RA gradient, S 18 mm Hg Maximal regurgitant velocity 212 cm/s Systemic veins Estimated CVP 10 mm Hg Right ventricle RV pressure, S 28 mm Hg <30 Pulmonic valve Peak velocity, S 128 cm/s LEGEND: Mean values are shown as u=mean value. Asterisk (*) carr values outside specified normal range. Prepared and signed by Tim Rodriguez [id number]
--- NOTE | 2017-01-12 17:11 | PD.CAR.PN ---
CVT Progress Note Subjective/Hospital Course: sts data discussed with pt RISK SCORES About the STS Risk Calculator Procedure: CAB Only Risk of Mortality: 4.432% Morbidity or Mortality: 23.212% Long Length of Stay: 13.987% Short Length of Stay: 21.225% Permanent Stroke: 3.514% Prolonged Ventilation: 16.191% DSW Infection: 0.579% Renal Failure: 2.826% Reoperation: 9.545% Objective: Vital Signs Date Time Temp Pulse Resp B/P Pulse Ox O2 Delivery O2 Flow Rate FiO2 01/12/17 16:37 97.9 73 18 119/59 96 01/12/17 13:00 69 01/12/17 12:00 52 01/12/17 11:40 97.6 54 18 118/59 97 01/12/17 11:00 61 01/12/17 10:00 78 01/12/17 09:45 97.8 69 18 124/68 97 01/12/17 09:00 80 01/12/17 08:00 58 01/12/17 07:00 69 01/12/17 06:00 60 01/12/17 05:00 58 01/12/17 04:00 60 01/12/17 03:20 67 16 138/74 95 01/12/17 03:00 62 01/12/17 02:00 68 01/12/17 01:00 60 01/12/17 00:00 60 01/11/17 23:38 66 16 115/58 94 01/11/17 23:00 56 01/11/17 22:00 62 01/11/17 21:00 62 01/11/17 20:00 64 01/11/17 19:30 97.0 67 16 119/56 94 01/11/17 19:00 71 01/11/17 18:00 66 01/11/17 17:35 97.7 66 18 149/82 97 Labs: Laboratory Tests Test 01/12/17 10:22 Activated Partial 35.2 SEC Thromboplast Time (24.3-30.1) Result Diagram: 01/11/17 0930 01/12/17 0304 Tata Aviles Jan 12, 2017 17:11
--- NOTE | 2017-01-12 18:39 | RADRPT ---
EXAM DATE/TIME: 01/12/2017 17:55 [facility] COMPARISON: No previous studies available for comparison. INDICATIONS : Evaluate ascending calcification, pre op CABG. RADIATION DOSE: 8.64 CTDIvol (mGy) MEDICAL HISTORY : Hypertension. Cardiovascular disease Cerebrovascular disease. SURGICAL HISTORY : Appendectomy. ENCOUNTER: Initial ACUITY: 1 day PAIN SCALE: 0/10 LOCATION: Chest TECHNIQUE: Volumetric scanning of the chest was performed. Using automated exposure control and adjustment of t he mA and/or kV according to patient size, radiation dose was kept as low as reasonably achievable to obtain optimal diagnostic quality images. FINDINGS: The lungs are clear without focal infiltrate or pulmonary vascular congestion. No pulmonary nodule o r mass is noted. Minimal fibrotic scarring is noted within the posterior lung bases. Coronary artery calcifications are noted. There is mural calcification involving the upper portion of the ascending thoracic aorta, the thoracic aortic arch as well as almost the entire descending thoracic aorta. The re is aneurysmal dilatation of the infrarenal abdominal aorta which is incompletely evaluated on this examination but measures 4.3 cm AP x 3.4 cm transverse dimension. There is a cystic lesion in the e xpected region of the uncinate process of the pancreas measuring 2.6 x 2.3 cm which is also indetermi colleen and incompletely evaluated. There is a left adrenal nodule measuring 3.3 x 1.5 cm which may rep resent an adrenal adenoma. No mediastinal, hilar, or axillary lymphadenopathy is noted. No pleural e ffusion is noted. Degenerative changes and scoliosis of the thoracolumbar spine are noted. CONCLUSION: 1. Coronary artery calcifications. 2. Infrarenal abdominal aortic aneurysm measuring 4.3 cm AP x 3.4 cm transverse dimension. 3. 2.6 x 2.3 cm cystic mass within the uncinate process of the pancreas. 4. 3.3 x 1.5 cm left adrenal nodule consistent with possible adrenal adenoma. 5. Minimal fibrotic scarring within the posterior lung bases bilaterally. 6. Degenerative changes and scoliosis of the thoracolumbar spine. Bandar Flores MD on January 12, 2017 at 18:25 Board Certified Radiologist. This report was verified electronically.
[2017-01-12 19:18] LABS: APTT (PATIENT) 39.2 SEC (24.3-30.1)
[2017-01-12] MEDS: MORPHINE SULFATE 4 MG/ML INJ IV PRN (22:53)
[2017-01-13] VITALS (28 sets, daily range): BP systolic 117–178; BP diastolic 55–94; PULSE 6–94; RESP 18; TEMP 97.4–98; O2SAT 96–98
[2017-01-13 01:32] LABS: APTT (PATIENT) 68.3 SEC (24.3-30.1)
[2017-01-13] MEDS: NITROGLYCERIN 2% OINT 1 GM PACKET TOPICAL SCH ×4 (05:59→23:22)
--- NOTE | 2017-01-13 07:19 | MB ---
cc: QUINTIN PIZANO MD DATE OF CONSULTATION 01/12/2017 DATE OF 1930, 86-year-old male. HISTORY An 86-year-old male, a patient of Dr. Costa also seen in the past by Dr. Rodriguez, history of coronary artery disease was admitted back in October for unstable angina. Had an abnormal nuclear stress test. Had a cardiac cath by Dr. Rodriguez November 07, 2016. Had a left dominant circulation with normal left main. LAD had a 80-90% proximal disease and 50-60% mid distal. The circ was dominant and had an 80-90% proximal disease 70-80% distal disease. We were consulted at that time particularly because they felt that the lesions were not amendable to percutaneous intervention. The patient was very reluctant and opted for medical management at that time because he was caring for his who has dementia. Apparently he has had some recurring pain off and on but then just recently normally relieved by itself after about 10 minutes so he never had to take nitro. However, he was having some difficulty sleeping and Thursday night he apparently had some severe chest pain, took nitro and then a second time and then the third time he called 9-1-1. He also apparently is not able to walk more than a quarter mile. EKG showed ST depression more prominent than his prior tracing. Troponin was elevated at 0.12. They placed him on nitroglycerin. We were reconsulted to evaluate for possible coronary artery intervention. PAST MEDICAL HISTORY The patient's past medical history: 1. Hypertension. 2. Hyperlipidemia. 3. Carotid disease with previous left carotid endarterectomy. 4. Prior cerebrovascular accident. 5. History of aortic aneurysm. 6. History of peripheral arterial disease. 7. He has a right carotid endarterectomy [address] Ta. ALLERGIES NO KNOWN ALLERGIES. MEDICATIONS Home medications include: 1. Aspirin. 2. Plavix. 3. Nitro. 4. Atorvastatin. 5. Amlodipine. 6. Metoprolol. Last dose of Plavix was on the . Currently the patient is on a Heparin drip. FAMILY HISTORY Noncontributory. SOCIAL HISTORY The patient . The patient's has dementia, has a sister that stays with her and the son is also available to them. Prior history of tobacco abuse, quit 1987 started at age 17. No alcohol or illicit drugs. REVIEW OF SYSTEMS Positives and negatives are above in history of present illness. Otherwise unremarkable. PHYSICAL EXAMINATION VITAL SIGNS: Blood pressure 150/60, heart rate is 80, O2 sat 98% on room air. GENERAL: The patient is awake, alert in no acute distress. HEENT: Head is normocephalic, atraumatic. Pupils equal and reactive. Oral mucosa pink, moist. NECK: Supple. No JVD. CARDIOVASCULAR: Heart sounds S1-S2. A 1 to 2 over 6 early systolic ejection murmur. No gallops. ABDOMEN: Soft, nontender. No masses or organomegaly. EXTREMITIES: No cyanosis, clubbing. He has some mild edema of the right lower extremity which he says he had a recluse spider bite many years ago that caused this chronic swelling. Good distal pulses. LABORATORY DATA Lab work shows hemoglobin 14, hematocrit 42, white cell count 8.1, platelet count 228. Sodium 142, potassium 3.9, BUN of 14, creatinine 0.73. Troponin elevated highest was 0.42 which is now trending down. CURRENT MEDICATIONS 1. Aspirin. 2. Norvasc. 3. Lipitor. 4. Heparin drip. 5. Nitro paste. IMPRESSION This is an 86-year-old male with history of coronary artery disease, multivessel disease including the LAD, the circumflex, the OM and the RCA. Also a 2-D echo was completed showing an EF of 55-60%. No valvular aortic stenosis. No evidence for mitral stenosis. No regurgitation or stenosis in the tricuspid valve. IMPRESSION Plan at this time is to evaluate with CT scan of the chest without contrast to evaluate the ascending aorta for calcification. Further workup will be pending. According to the further workup evaluate for possible candidate for coronary artery bypass grafting. Procedures, alternatives and risks will then be discussed by Dr. Quintin Pizano and STS data will be evaluated and documented in the electronic record. DICTATED BY: MARIANELA Nolasco Quintin ZAPIEN /4:59 PM /7:19 AM
[2017-01-13] MEDS: SODIUM CHLORIDE 0.9% FLUSH 10 ML FLUSH IV FLUSH SCH ×2 (09:00→19:54)
[2017-01-13] MEDS: ASPIRIN 81 MG CHEW TAB PO SCH (09:01)
[2017-01-13] MEDS: METOPROLOL TARTRATE 25 MG TAB PO SCH ×2 (09:01→19:54)
[2017-01-13] MEDS: ATORVASTATIN 20 MG TAB PO SCH (09:01)
[2017-01-13] MEDS: amLODIPine BESYLATE 5 MG TAB PO SCH (09:01)
--- NOTE | 2017-01-13 09:35 | PD.CARD.PN ---
Subjective Subjective Remarks No new sx's. Getting impatient with plan Objective Medications Current Medications Medications (Trade) Dose Ordered Sig/Munira Route Start Time Stop Time Status Last Admin (Heparin Inj) 5,000 units UNSCH PRN IV 01/11/17 18:15 Heparin Sodium (Porcine) 2500 units 2,500 units UNSCH PRN IV 01/11/17 18:15 01/12/17 20:38 (Heparin-D5W Inj) 250 ml @ 0 mls/hr TITRATE IV 01/11/17 12:15 01/11/17 13:54 (Nitroglycerin 2% Oint) 1 inch Q6HR TOPICAL 01/11/17 18:00 01/13/17 05:59 (Aspirin Chew) 81 mg DAILY PO 01/12/17 09:00 01/13/17 09:01 (Lopressor) 25 mg Q12HR PO 01/11/17 13:00 01/13/17 09:01 (Norvasc) 2.5 mg DAILY PO 01/12/17 09:00 01/13/17 09:01 (Xanax) 0.25 mg Q6H PRN PO 01/11/17 12:30 (Lipitor) 20 mg DAILY PO 01/12/17 09:00 01/13/17 09:01 (NS Flush) 2 ml UNSCH PRN IV FLUSH 01/11/17 12:45 (NS Flush) 2 ml BID IV FLUSH 01/11/17 21:00 (Tylenol) 650 mg Q4H PRN PO 01/11/17 12:45 (Zofran Inj) 4 mg Q6H PRN IVP 01/11/17 12:45 (Tylenol) 650 mg Q6H PRN PO 01/11/17 12:45 (Morphine Inj) 4 mg Q3H PRN IV 01/11/17 12:45 01/12/17 22:53 (Narcan Inj) 0.4 mg UNSCH PRN IV 01/11/17 12:45 (Pill Splitter) 1 ea UNSCH PRN OTHER 01/11/17 13:15 Vital Signs / I&O Vital Signs Date Time Temp Pulse Resp B/P Pulse Ox O2 Delivery O2 Flow Rate FiO2 01/13/17 07:56 97.4 63 18 140/71 97 01/13/17 06:00 60 01/13/17 05:00 6 01/13/17 04:23 53 01/13/17 03:20 97.9 61 18 133/56 98 01/13/17 03:00 55 01/13/17 02:00 57 01/13/17 01:00 62 01/13/17 00:00 57 01/12/17 23:00 54 01/12/17 23:00 97.6 62 18 115/64 98 01/12/17 22:00 68 01/12/17 21:00 60 01/12/17 20:00 69 01/12/17 19:00 59 01/12/17 19:00 97.5 69 18 115/64 94 01/12/17 18:00 66 01/12/17 17:00 60 01/12/17 16:37 97.9 73 18 119/59 96 01/12/17 16:00 62 01/12/17 15:00 55 01/12/17 14:00 52 01/12/17 13:00 69 01/12/17 12:00 52 01/12/17 11:40 97.6 54 18 118/59 97 01/12/17 11:00 61 01/12/17 10:00 78 01/12/17 09:45 97.8 69 18 124/68 97 I/O 01/12/17 01/12/17 01/12/17 01/13/17 01/13/17 01/13/17 07:00 15:00 23:00 07:00 15:00 23:00 Intake Total 320 ml 1193 ml 650 ml Output Total 450 ml 1 ml Balance -130 ml 1192 ml 650 ml Intake Oral 200 ml 960 ml 500 ml IV Total 120 ml 233 ml 150 ml Output Urine Total 450 ml 1 ml # Voids 2 # Bowel Movements 1 1 Physical Exam GENERAL: Well developed, well nourished. No acute distress. HEENT: Jugular venous pressure is normal. CHEST: Lungs clear to auscultation bilaterally. Unlabored respiratory effort. CARDIAC: Regular rate and rhythm without S3, S4, 2/6 JOSE. ABDOMEN: Soft, nontender, no hepatosplenomegaly. Bowel sounds present. EXTREMITIES: No clubbing, cyanosis, or edema. Laboratory Laboratory Tests Test 01/12/17 01/12/17 01/13/17 10:22 18:19 01:09 Activated Partial 35.2 SEC 39.2 SEC 68.3 SEC Thromboplast Time Imaging Last [address] 01/12/17 0000 Signed Impressions: Service Date/Time: Thursday, January 12, 2017 17:55 - CONCLUSION: 1. Coronary artery calcifications. 2. Infrarenal abdominal aortic aneurysm measuring 4.3 cm AP x 3.4 cm transverse dimension. 3. 2.6 x 2.3 cm cystic mass within the uncinate process of the pancreas. 4. 3.3 x 1.5 cm left adrenal nodule consistent with possible adrenal adenoma. 5. Minimal fibrotic scarring within the posterior lung bases bilaterally. 6. Degenerative changes and scoliosis of the thoracolumbar spine. Bandar Flores MD Assessment and Plan Problem List: (1) Non-ST elevation myocardial infarction (NSTEMI) Assessment and Plan: Stabilized on IV heparin (2) Hypertension (3) Hyperlipidemia (4) Multi-vessel coronary artery stenosis (5) Antiplatelet or antithrombotic long-term use Assessment and Plan: Check Verify Now in AM Assessment and Plan CT surgical eval in progress Discussed Condition With patient Asaf Larsen MD Jan 13, 2017 09:35
[2017-01-13 09:54] LABS: APTT (PATIENT) 63.2 SEC (24.3-30.1)
--- NOTE | 2017-01-13 12:59 | EKG ---
Date Performed: 01/11/2017 Time Performed: 21:56:12 PTAGE: 86 years EKG: Sinus rhythm Prolonged QT interval Possible LVH with secondary repolarization abnormality Extensive ST-T changes may be due to hypertrophy and/or ischemia Abnormal ECG PREVIOUS TRACING : 01/11/2017 15.39 Compared to prior tracing no significant change DOCTOR: Nagi Ceron Interpretating Date/Time 01/13/2017 12:58:13
--- NOTE | 2017-01-13 13:02 | HHI.PR ---
Subjective Remarks The patient was anxious about getting the surgery done. He had no acute complaints. He has been ambulatory. He has been having bowel movements. Discussed with nursing. Objective Vitals Vital Signs Date Time Temp Pulse Resp B/P Pulse Ox O2 Delivery O2 Flow Rate FiO2 01/13/17 09:00 60 01/13/17 08:00 66 01/13/17 07:56 97.4 63 18 140/71 97 01/13/17 07:00 60 01/13/17 06:00 60 01/13/17 05:00 6 01/13/17 04:23 53 01/13/17 03:20 97.9 61 18 133/56 98 01/13/17 03:00 55 01/13/17 02:00 57 01/13/17 01:00 62 01/13/17 00:00 57 01/12/17 23:00 54 01/12/17 23:00 97.6 62 18 115/64 98 01/12/17 22:00 68 01/12/17 21:00 60 01/12/17 20:00 69 01/12/17 19:00 59 01/12/17 19:00 97.5 69 18 115/64 94 01/12/17 18:00 66 01/12/17 17:00 60 01/12/17 16:37 97.9 73 18 119/59 96 01/12/17 16:00 62 01/12/17 15:00 55 01/12/17 14:00 52 01/12/17 13:00 69 I/O 01/12/17 01/12/17 01/12/17 01/13/17 01/13/17 01/13/17 07:00 15:00 23:00 07:00 15:00 23:00 Intake Total 320 ml 1193 ml 650 ml Output Total 450 ml 1 ml Balance -130 ml 1192 ml 650 ml Intake Oral 200 ml 960 ml 500 ml IV Total 120 ml 233 ml 150 ml Output Urine Total 450 ml 1 ml # Voids 2 # Bowel Movements 1 1 Result Diagram: 01/11/17 0930 01/12/17 0304 Imaging Last Impressions Chest CT 01/12/17 0000 Signed Impressions: Service Date/Time: Thursday, January 12, 2017 17:55 - CONCLUSION: 1. Coronary artery calcifications. 2. Infrarenal abdominal aortic aneurysm measuring 4.3 cm AP x 3.4 cm transverse dimension. 3. 2.6 x 2.3 cm cystic mass within the uncinate process of the pancreas. 4. 3.3 x 1.5 cm left adrenal nodule consistent with possible adrenal adenoma. 5. Minimal fibrotic scarring within the posterior lung bases bilaterally. 6. Degenerative changes and scoliosis of the thoracolumbar spine. Bandar Flores MD Chest X-Ray 01/11/17 0910 Signed Impressions: Service Date/Time: Wednesday, January 11, 2017 09:40 - CONCLUSION: Normal examination. Tata Wilder MD Objective Remarks GENERAL: NAD SKIN: Warm and dry. HEAD: Normocephalic. EYES: No scleral icterus. No injection or drainage. NECK: Supple, trachea midline. No JVD or lymphadenopathy. CARDIOVASCULAR: Regular rate and rhythm without murmurs, gallops, or rubs. RESPIRATORY: Breath sounds equal bilaterally. No accessory muscle use. GASTROINTESTINAL: Abdomen soft, non-tender, nondistended. MUSCULOSKELETAL: No cyanosis, or edema. BACK: Nontender without obvious deformity. No CVA tenderness. PSYCH: Mood and affect appropriate. Medications and IVs Current Medications Medications (Trade) Dose Ordered Sig/Munira Route Start Time Stop Time Status Last Admin (Heparin Inj) 5,000 units UNSCH PRN IV 01/11/17 18:15 Heparin Sodium (Porcine) 2500 units 2,500 units UNSCH PRN IV 01/11/17 18:15 01/12/17 20:38 (Heparin-D5W Inj) 250 ml @ 0 mls/hr TITRATE IV 01/11/17 12:15 01/11/17 13:54 (Nitroglycerin 2% Oint) 1 inch Q6HR TOPICAL 01/11/17 18:00 01/13/17 12:52 (Aspirin Chew) 81 mg DAILY PO 01/12/17 09:00 01/13/17 09:01 (Lopressor) 25 mg Q12HR PO 01/11/17 13:00 01/13/17 09:01 (Norvasc) 2.5 mg DAILY PO 01/12/17 09:00 01/13/17 09:01 (Xanax) 0.25 mg Q6H PRN PO 01/11/17 12:30 (Lipitor) 20 mg DAILY PO 01/12/17 09:00 01/13/17 09:01 (NS Flush) 2 ml UNSCH PRN IV FLUSH 01/11/17 12:45 (NS Flush) 2 ml BID IV FLUSH 01/11/17 21:00 (Tylenol) 650 mg Q4H PRN PO 01/11/17 12:45 (Zofran Inj) 4 mg Q6H PRN IVP 01/11/17 12:45 (Tylenol) 650 mg Q6H PRN PO 01/11/17 12:45 (Morphine Inj) 4 mg Q3H PRN IV 01/11/17 12:45 01/12/17 22:53 (Narcan Inj) 0.4 mg UNSCH PRN IV 01/11/17 12:45 (Pill Splitter) 1 ea UNSCH PRN OTHER 01/11/17 13:15 Current Medications Medications (Trade) Dose Ordered Sig/Munira Route Start Time Stop Time Status Last Admin (Heparin Inj) 5,000 units UNSCH PRN IV 01/11/17 18:15 Heparin Sodium (Porcine) 2500 units 2,500 units UNSCH PRN IV 01/11/17 18:15 01/12/17 20:38 (Heparin-D5W Inj) 250 ml @ 0 mls/hr TITRATE IV 01/11/17 12:15 01/11/17 13:54 (Nitroglycerin 2% Oint) 1 inch Q6HR TOPICAL 01/11/17 18:00 01/13/17 12:52 (Aspirin Chew) 81 mg DAILY PO 01/12/17 09:00 01/13/17 09:01 (Lopressor) 25 mg Q12HR PO 01/11/17 13:00 01/13/17 09:01 (Norvasc) 2.5 mg DAILY PO 01/12/17 09:00 01/13/17 09:01 (Xanax) 0.25 mg Q6H PRN PO 01/11/17 12:30 (Lipitor) 20 mg DAILY PO 01/12/17 09:00 01/13/17 09:01 (NS Flush) 2 ml UNSCH PRN IV FLUSH 01/11/17 12:45 (NS Flush) 2 ml BID IV FLUSH 01/11/17 21:00 (Tylenol) 650 mg Q4H PRN PO 01/11/17 12:45 (Zofran Inj) 4 mg Q6H PRN IVP 01/11/17 12:45 (Tylenol) 650 mg Q6H PRN PO 01/11/17 12:45 (Morphine Inj) 4 mg Q3H PRN IV 01/11/17 12:45 01/12/17 22:53 (Narcan Inj) 0.4 mg UNSCH PRN IV 01/11/17 12:45 (Pill Splitter) 1 ea UNSCH PRN OTHER 01/11/17 13:15 A/P Problem List: (1) Multi-vessel coronary artery stenosis ICD Code: I25.10 Status: Acute (2) Non-ST elevation myocardial infarction (NSTEMI) ICD Code: I21.4 Status: Acute (3) Hypertension ICD Code: I10 Status: Chronic (4) Chest pain ICD Code: R07.9 Status: Acute (5) Hyperlipidemia ICD Code: E78.5 Status: Chronic (6) History of CVA (cerebrovascular accident) ICD Code: Z86.73 Status: Chronic Assessment and Plan NSTEMI Recent diagnosis of multi vessel CAD October 2016 - Prox LAD, Prox LCx, Distal LCx, non-dominant RCA. Patient then refused bypass/intervention and now presents with non-ST elevation [place]. Chest x-ray without any cardio pulmonary disease. Appreciate input from Cardiology and CT surgery. CT scan showed: Coronary artery calcifications; Infrarenal abdominal aortic aneurysm measuring 4.3 cm AP x 3.4 cm transverse dimension; 2.6 x 2.3 cm cystic mass within the uncinate process of the pancreas; 3.3 x 1.5 cm left adrenal nodule consistent with possible adrenal adenoma. Echo with normal EF. - Continue heparin drip, Norvasc 2.5 mg daily, Lopressor 25 mg twice a day, Nitropaste and Lipitor 20 mg daily. - cardiothoracic surgery work-up in progress. - oxygen and pain meds as needed. - telemetry. Pancreatic mass Noted on CT scan. - pancreas US pending. Hypertension Well controlled. - continue Norvasc 2.5 mg daily and Lopressor 25 mg daily. DVT prophylaxis: Heparin drip Discharge Planning Awaiting further CT surgery evaluation. Bk Jamison DO Jan 13, 2017 13:02
[2017-01-13] MEDS ORDERED: INSULIN REGULAR (IV INFUSION) 100 UNITS in SODIUM CHLORIDE 0.9% INJ 100 ML IV SCH (15:15)
[2017-01-13] MEDS ORDERED: PAPAVERINE INJ 60 MG, NITROGLYCERIN INJ 100 MCG, DILTIAZEM INJ 100 MG in SODIUM CHLORID... IRRIGATION SCH (15:15)
[2017-01-13] MEDS ORDERED: CHLORHEXIDINE GLUCONATE 4% SOLN 120 ML BTL TOPICAL SCH (15:15)
[2017-01-13] MEDS ORDERED: SODIUM CHLORIDE 0.9% FLUSH 10 ML FLUSH IV FLUSH PRN (15:15)
[2017-01-13] MEDS ORDERED: CEFAZOLIN INJ 500 MG in SODIUM CHLORIDE 0.9% IRR BTL 500 ML IRRIGATION SCH (15:15)
[2017-01-13] MEDS ORDERED: METOPROLOL TARTRATE 25 MG TAB PO SCH (15:15)
[2017-01-13] MEDS ORDERED: ceFAZolin 2 GM PREMIX 50 ML IV SCH (15:15)
--- NOTE | 2017-01-13 15:37 | PD.CAR.PN ---
CVT Progress Note Subjective/Hospital Course: 86/ male hx of CAD , seen by Dr Hilario in Oct heart cath for multi vessel disease/ decided against surgery at that time 11/20 caring for his who has dementia . 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 HEAD: Normocephalic. EYES: No scleral icterus. No injection or drainage. NECK: Supple, trachea midline. No JVD or lymphadenopathy. CARDIOVASCULAR: Regular rate and rhythm without murmurs, gallops, or rubs. RESPIRATORY: Breath sounds equal bilaterally. No accessory muscle use. GASTROINTESTINAL: Abdomen soft, non-tender, nondistended. MUSCULOSKELETAL: No cyanosis, or edema. BACK: Nontender without obvious deformity. No CVA tenderness. Vital Signs Date Time Temp Pulse Resp B/P Pulse Ox O2 Delivery O2 Flow Rate FiO2 01/13/17 12:00 97.4 54 18 128/55 98 01/13/17 09:00 60 01/13/17 08:00 66 01/13/17 07:56 97.4 63 18 140/71 97 01/13/17 07:00 60 01/13/17 06:00 60 01/13/17 05:00 6 01/13/17 04:23 53 01/13/17 03:20 97.9 61 18 133/56 98 01/13/17 03:00 55 01/13/17 02:00 57 01/13/17 01:00 62 01/13/17 00:00 57 01/12/17 23:00 54 01/12/17 23:00 97.6 62 18 115/64 98 01/12/17 22:00 68 01/12/17 21:00 60 01/12/17 20:00 69 01/12/17 19:00 59 01/12/17 19:00 97.5 69 18 115/64 94 01/12/17 18:00 66 01/12/17 17:00 60 01/12/17 16:37 97.9 73 18 119/59 96 01/12/17 16:00 62 Labs: Laboratory Tests Test 01/13/17 09:29 Activated Partial 63.2 SEC Thromboplast Time (24.3-30.1) Result Diagram: 01/11/17 0930 01/12/17 0304 Telemetry: NSR (1) Non-ST elevation myocardial infarction (NSTEMI) Plan: Stabilized on IV heparin/ ASA statin BB (2) Hypertension Plan: controlled (3) Hyperlipidemia (4) Multi-vessel coronary artery stenosis Plan: for surgery on Thursday (5) Antiplatelet or antithrombotic long-term use Plan: Check Verify Now on Tata Garrett Jan 13, 2017 15:36
--- NOTE | 2017-01-13 18:58 | RADRPT ---
EXAM DATE/TIME: 01/13/2017 16:48 [place] COMPARISON: No previous studies available for comparison. EXTERNAL COMPARISON : [facility], CTA AORTA W RUNOFF W 3D PROCESSING, September 10, 2016 INDICATIONS : Abnormal CT visualized pancreas mass. MEDICAL HISTORY : Hypercholesterolemia. Hypertension. Stroke. Syncope. CAD. SURGICAL HISTORY : Carotid endarterectomy. Appendectomy. ENCOUNTER: Initial ACUITY: 1 day PAIN SCORE: 0/10 LOCATION: Right upper quadrant MEASUREMENTS: LIVER: 16.5 cm length COMMON DUCT: 8 mm RIGHT KIDNEY: 11.2 x 5.1 x 4.9 cm FINDINGS: LIVER: The liver is mildly enlarged. Normal echotexture without focal lesion or ductal dilatation. COMMON DUCT: No intraluminal mass or stone visualized. GALLBLADDER: Contains no stones, demonstrates no wall thickening or pericholecystic fluid. PANCREAS: A cystic mass is confirmed within the expected region of the uncinate process of the pancreas measuri ng 3.1 x 2.4 x 2.9 cm sonographically and remains indeterminate. The main pancreatic duct is mildly d ilated. CONCLUSION: 1. A cystic mass is confirmed within the expected region of the uncinate process of the pancreas gagandeep uring 3.1 x 2.4 x 2.9 cm sonographically and remains indeterminate. The main pancreatic duct is mildl y dilated. 2. Mild hepatomegaly. Bandar Flores MD on January 13, 2017 at 18:53 Board Certified Radiologist. This report was verified electronically.
[2017-01-13] MEDS: HEPARIN-D5W INJ 250 ML IV SCH (19:52)
[2017-01-13] MEDS ORDERED: SODIUM CHLORIDE 0.9% FLUSH 10 ML FLUSH IV FLUSH SCH (21:00)
[2017-01-14] VITALS (24 sets, daily range): BP systolic 112–157; BP diastolic 50–78; PULSE 52–70; RESP 16–20; TEMP 97.4–98.2; O2SAT 94–98
[2017-01-14] MEDS: MORPHINE SULFATE 4 MG/ML INJ IV PRN (01:58)
[2017-01-14] MEDS: NITROGLYCERIN 2% OINT 1 GM PACKET TOPICAL SCH ×3 (05:31→17:54)
[2017-01-14 06:58] LABS: APTT (PATIENT) 44.1 SEC (24.3-30.1)
[2017-01-14 07:18] LABS: HEMATOCRIT 39.1 % (39.0-51.0); MEAN CELL VOLUME 88.4 FL (80.0-100.0); MEAN CORPUSCULAR HEMOGLOBIN 29.1 PG (27.0-34.0); PLATELET COUNT 196 TH/MM3 (150-450); RED BLOOD COUNT 4.42 MIL/MM3 (4.50-5.90); RED CELL DISTRIBUTION WIDTH 13.1 % (11.6-17.2); REVIEW FLAG FINAL; WHITE BLOOD COUNT 7.4 TH/MM3 (4.0-11.0)
[2017-01-14] MEDS: ASPIRIN 81 MG CHEW TAB PO SCH (07:58)
[2017-01-14] MEDS: amLODIPine BESYLATE 5 MG TAB PO SCH (07:58)
[2017-01-14] MEDS: SODIUM CHLORIDE 0.9% FLUSH 10 ML FLUSH IV FLUSH SCH ×2 (07:59→21:00)
[2017-01-14] MEDS: METOPROLOL TARTRATE 25 MG TAB PO SCH ×2 (07:59→21:50)
[2017-01-14] MEDS: ATORVASTATIN 20 MG TAB PO SCH (07:59)
--- NOTE | 2017-01-14 14:59 | HHI.PR ---
Subjective Remarks The patient was ambulating. He had no acute complaints. He was curious about the ultrasound findings. He wanted to know what time he would be going for surgery on Thursday. Nursing was at the bedside and had no acute concerns. Objective Vitals Vital Signs Date Time Temp Pulse Resp B/P Pulse Ox O2 Delivery O2 Flow Rate FiO2 01/14/17 11:00 98.1 55 16 148/69 96 01/14/17 07:00 65 01/14/17 07:00 98.0 60 16 125/64 96 01/14/17 06:00 65 01/14/17 05:01 65 01/14/17 04:01 58 01/14/17 03:16 98.2 64 20 157/78 98 01/14/17 03:16 61 01/14/17 02:10 64 01/14/17 01:02 60 01/14/17 00:00 59 01/13/17 23:31 98.0 59 18 155/71 96 01/13/17 23:03 58 01/13/17 22:00 58 01/13/17 21:13 62 01/13/17 20:00 97.8 72 18 178/94 97 01/13/17 20:00 55 01/13/17 19:28 60 01/13/17 18:00 91 01/13/17 17:00 94 01/13/17 16:00 48 01/13/17 15:45 97.5 54 18 117/58 98 01/13/17 15:00 57 I/O 01/13/17 01/13/17 01/13/17 01/14/17 01/14/17 01/14/17 07:00 15:00 23:00 07:00 15:00 23:00 Intake Total 650 ml 727 ml 630 ml Balance 650 ml 727 ml 630 ml Intake Oral 500 ml 480 ml 480 ml IV Total 150 ml 247 ml 150 ml # Voids 2 3 3 # Bowel Movements 1 0 Result Diagram: 01/14/17 0532 01/12/17 0304 Imaging Last Impressions Pancreas Ultrasound 01/13/17 0000 Signed Impressions: Service Date/Time: Friday, January 13, 2017 16:48 - CONCLUSION: 1. A cystic mass is confirmed within the expected region of the uncinate process of the pancreas measuring 3.1 x 2.4 x 2.9 cm sonographically and remains indeterminate. The main pancreatic duct is mildly dilated. 2. Mild hepatomegaly. Bandar Flores MD Chest CT 01/12/17 0000 Signed Impressions: Service Date/Time: Thursday, January 12, 2017 17:55 - CONCLUSION: 1. Coronary artery calcifications. 2. Infrarenal abdominal aortic aneurysm measuring 4.3 cm AP x 3.4 cm transverse dimension. 3. 2.6 x 2.3 cm cystic mass within the uncinate process of the pancreas. 4. 3.3 x 1.5 cm left adrenal nodule consistent with possible adrenal adenoma. 5. Minimal fibrotic scarring within the posterior lung bases bilaterally. 6. Degenerative changes and scoliosis of the thoracolumbar spine. Bandar Flores MD Chest X-Ray 01/11/1725 Signed Impressions: Service Date/Time: Wednesday, January 11, 2017 09:40 - CONCLUSION: Normal examination. Tata Wilder MD Objective Remarks GENERAL: NAD SKIN: Warm and dry. HEAD: Normocephalic. EYES: No scleral icterus. No injection or drainage. NECK: Supple, trachea midline. No JVD or lymphadenopathy. CARDIOVASCULAR: Regular rate and rhythm without murmurs, gallops, or rubs. RESPIRATORY: Breath sounds equal bilaterally. No accessory muscle use. GASTROINTESTINAL: Abdomen soft, non-tender, nondistended. MUSCULOSKELETAL: No cyanosis, or edema. BACK: Nontender without obvious deformity. No CVA tenderness. PSYCH: Mood and affect appropriate. Medications and IVs Current Medications Medications (Trade) Dose Ordered Sig/Munira Route Start Time Stop Time Status Last Admin (Heparin Inj) 5,000 units UNSCH PRN IV 01/11/17 18:15 Heparin Sodium (Porcine) 2500 units 2,500 units UNSCH PRN IV 01/11/17 18:15 01/12/17 20:38 (Heparin-D5W Inj) 250 ml @ 0 mls/hr TITRATE IV 01/11/17 12:15 01/13/17 19:52 (Nitroglycerin 2% Oint) 1 inch Q6HR TOPICAL 01/11/17 18:00 01/14/17 12:49 (Aspirin Chew) 81 mg DAILY PO 01/12/17 09:00 01/14/17 07:58 (Lopressor) 25 mg Q12HR PO 01/11/17 13:00 01/14/17 07:59 (Norvasc) 2.5 mg DAILY PO 01/12/17 09:00 01/14/17 07:58 (Xanax) 0.25 mg Q6H PRN PO 01/11/17 12:30 (Lipitor) 20 mg DAILY PO 01/12/17 09:00 01/14/17 07:59 (NS Flush) 2 ml UNSCH PRN IV FLUSH 01/11/17 12:45 (NS Flush) 2 ml BID IV FLUSH 01/11/17 21:00 01/14/17 07:59 (Tylenol) 650 mg Q4H PRN PO 01/11/17 12:45 (Zofran Inj) 4 mg Q6H PRN IVP 01/11/17 12:45 (Tylenol) 650 mg Q6H PRN PO 01/11/17 12:45 (Morphine Inj) 4 mg Q3H PRN IV 01/11/17 12:45 01/14/17 01:58 (Narcan Inj) 0.4 mg UNSCH PRN IV 01/11/17 12:45 (Pill Splitter) 1 ea UNSCH PRN OTHER 01/11/17 13:15 A/P Problem List: (1) Multi-vessel coronary artery stenosis ICD Code: I25.10 Status: Acute (2) Non-ST elevation myocardial infarction (NSTEMI) ICD Code: I21.4 Status: Acute (3) Hypertension ICD Code: I10 Status: Chronic (4) Chest pain ICD Code: R07.9 Status: Acute (5) Hyperlipidemia ICD Code: E78.5 Status: Chronic (6) History of CVA (cerebrovascular accident) ICD Code: Z86.73 Status: Chronic Assessment and Plan NSTEMI Recent diagnosis of multi vessel CAD October 2016 - Prox LAD, Prox LCx, Distal LCx, non-dominant RCA. Patient then refused bypass/intervention and now presents with non-ST elevation [place]. Chest x-ray without any cardio pulmonary disease. Appreciate input from Cardiology and CT surgery. CT scan showed: Coronary artery calcifications; Infrarenal abdominal aortic aneurysm measuring 4.3 cm AP x 3.4 cm transverse dimension; 2.6 x 2.3 cm cystic mass within the uncinate process of the pancreas; 3.3 x 1.5 cm left adrenal nodule consistent with possible adrenal adenoma. Echo with normal EF. - Continue heparin drip, Norvasc 2.5 mg daily, Lopressor 25 mg twice a day, Nitropaste and Lipitor 20 mg daily. - cardiothoracic surgery work-up in progress. CABG tentatively scheduled for Thursday. - oxygen and pain meds as needed. - telemetry. Pancreatic mass Noted on CT scan. Ultrasound showed: cystic mass is confirmed within the expected region of the uncinate process of the pancreas measuring 3.1 x 2.4 x 2.9 cm sonographically and remains indeterminate; the main pancreatic duct is mildly dilated. - would recommend further work up with MRCP which may be obtained following surgery. Hypertension Well controlled. - continue Norvasc 2.5 mg daily and Lopressor 25 mg daily. DVT prophylaxis: Heparin drip Discharge Planning Awaiting further CT surgery evaluation. Anticipate CABG Thursday. Bk Jamison DO Jan 14, 2017 14:59
--- NOTE | 2017-01-14 16:39 | PD.CAR.PN ---
CVT Progress Note Subjective/Hospital Course: 86/ male hx of CAD , seen by Dr Hilario in Oct heart cath for multi vessel disease/ decided against surgery at that time / caring for his who has dementia . 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, ( right CEA Oct 2013) hx of CVA, PVD, AAA PFT FEV1 1.7/ mild obstructive disease CT Chest 01/12 coronary artery calcifications infrarenal AAA 4.3cmx 3.4cm 2.6x2.3cm cystic mass in pancreas ( US of abd and pancreas pending ) 3.3x1.5 left adrenal nodule 01/[address] Hilario spoke with pt/ tentatively scheduled for surgery on Thursday, PRU pending on 01/15 also pending US abd and pancreas/ will meet with family and pt again tomorrow afternoon on heparin gtt 01/14 pt had episode of chest pain last pm US pancreas noted recommend general surgery eval prior to CABG still tentatively scheduled for surgery on thursday Objective: GENERAL: SKIN: Warm and dry. HEAD: Normocephalic. EYES: No scleral icterus. No injection or drainage. NECK: Supple, trachea midline. No JVD or lymphadenopathy. CARDIOVASCULAR: Regular rate and rhythm without murmurs, gallops, or rubs. RESPIRATORY: Breath sounds equal bilaterally. No accessory muscle use. GASTROINTESTINAL: Abdomen soft, non-tender, nondistended. MUSCULOSKELETAL: No cyanosis, or edema. BACK: Nontender without obvious deformity. No CVA tenderness. Vital Signs Date Time Temp Pulse Resp B/P Pulse Ox O2 Delivery O2 Flow Rate FiO2 01/14/17 13:00 64 01/14/17 12:00 64 01/14/17 11:00 52 01/14/17 11:00 98.1 55 16 148/69 96 01/14/17 10:00 54 01/14/17 09:00 56 01/14/17 08:00 58 01/14/17 07:00 65 01/14/17 07:00 98.0 60 16 125/64 96 01/14/17 06:00 65 01/14/17 05:01 65 01/14/17 04:01 58 01/14/17 03:16 98.2 64 20 157/78 98 01/14/17 03:16 61 01/14/17 02:10 64 01/14/17 01:02 60 01/14/17 00:00 59 01/13/17 23:31 98.0 59 18 155/71 96 01/13/17 23:03 58 01/13/17 22:00 58 01/13/17 21:13 62 01/13/17 20:00 97.8 72 18 178/94 97 01/13/17 20:00 55 01/13/17 19:28 60 01/13/17 18:00 91 01/13/17 17:00 94 Labs: Laboratory Tests Test 01/14/17 01/14/17 05:32 05:33 White Blood Count 7.4 TH/MM3 (4.0-11.0) Red Blood Count 4.42 MIL/MM3 (4.50-5.90) Hemoglobin 12.9 GM/DL (13.0-17.0) Hematocrit 39.1 % (39.0-51.0) Mean Corpuscular Volume 88.4 FL (80.0-100.0) Mean Corpuscular Hemoglobin 29.1 PG (27.0-34.0) Mean Corpuscular Hemoglobin 33.0 % Concent (32.0-36.0) Red Cell Distribution Width 13.1 % (11.6-17.2) Platelet Count 196 TH/MM3 (150-450) Mean Platelet Volume 10.6 FL (7.0-11.0) Activated Partial 44.1 SEC Thromboplast Time (24.3-30.1) Result Diagram: 01/14/17 0532 01/12/17 0304 (1) Non-ST elevation myocardial infarction (NSTEMI) Plan: Stabilized on IV heparin/ ASA statin BB / nitro paste (2) Hypertension Plan: controlled (3) Hyperlipidemia (4) Multi-vessel coronary artery stenosis Plan: for surgery on Thursday (5) Antiplatelet or antithrombotic long-term use Plan: Check Verify Now on (6) Pancreatic mass Plan: will have general surgery Tata Roberson Jan 14, 2017 16:39
[2017-01-14 19:43] LABS: BLOOD, URINE NEG (NEG); COMMENT (UR) CULT NOT INDICATED; CULTURE IF INDICATED CULT NOT INDICATED; GLUCOSE,URINE NEG (NEG); KETONE, URINE NEG (NEG); NITRITE,URINE NEG (NEG); URINE COLOR LIGHT-YELLOW (YELLW/STRAW)
[2017-01-14] MEDS: HEPARIN-D5W INJ 250 ML IV SCH (21:51)
[2017-01-15] VITALS (24 sets, daily range): BP systolic 119–154; BP diastolic 49–78; PULSE 51–87; RESP 16–18; TEMP 97.7–98; O2SAT 95–99
[2017-01-15] MEDS: NITROGLYCERIN 2% OINT 1 GM PACKET TOPICAL SCH ×4 (00:38→17:43)
[2017-01-15 06:49] LABS: APTT (PATIENT) 59.5 SEC (24.3-30.1); PROTHROMBIN TIME - PATIENT 10.5 SEC (9.8-11.6)
[2017-01-15 06:54] LABS: P2Y12 REACTION UNITS (PRU) 193 PRU (194-418)
[2017-01-15 07:20] LABS: AUTOMATED NEUTROPHIL # 4.8 TH/MM3 (1.8-7.7); BASOPHIL % 0.5 % (0.0-2.0); EOSINOPHIL # 0.3 TH/MM3 (0-0.4); EOSINOPHIL % 3.9 % (0.0-4.0); HEMO FLAGS DIFF FINAL; LYMPH % 16.3 % (9.0-44.0); LYMPHOCYTE # 1.1 TH/MM3 (1.0-4.8); MEAN CELL VOLUME 88.6 FL (80.0-100.0); MEAN CORPUSCULAR HEMOGLOBIN 29.1 PG (27.0-34.0); MEAN CORPUSCULAR HGB CONC 32.9 % (32.0-36.0); MONO % 7.7 % (0.0-8.0); NEUT % 71.6 % (16.0-70.0); PLATELET COUNT 192 TH/MM3 (150-450); WHITE BLOOD COUNT 6.7 TH/MM3 (4.0-11.0)
[2017-01-15 07:21] LABS: ANION GAP 7 MEQ/L (5-15); BICARBONATE 30.2 MEQ/L (21.0-32.0); BLOOD UREA NITROGEN 18 MG/DL (7-18); CHLORIDE 105 MEQ/L (98-107); GLOMERULAR FILTRATION RATE 89 ML/MIN (>89); SODIUM (NA) 142 MEQ/L (136-145)
[2017-01-15] MEDS: ATORVASTATIN 20 MG TAB PO SCH (08:57)
[2017-01-15] MEDS: amLODIPine BESYLATE 5 MG TAB PO SCH (08:58)
[2017-01-15] MEDS: SODIUM CHLORIDE 0.9% FLUSH 10 ML FLUSH IV FLUSH SCH ×2 (08:58→21:00)
[2017-01-15] MEDS: METOPROLOL TARTRATE 25 MG TAB PO SCH ×2 (08:58→20:59)
[2017-01-15] MEDS: ASPIRIN 81 MG CHEW TAB PO SCH (08:58)
--- NOTE | 2017-01-15 12:44 | HHI.PR ---
Subjective Remarks The pt wanted to know if he would be having surgery tomorrow. He said he talked with the surgeon a little while ago. He has been constipated. He denies any pain. Objective Vitals Vital Signs Date Time Temp Pulse Resp B/P Pulse Ox O2 Delivery O2 Flow Rate FiO2 01/15/17 12:27 56 01/15/17 11:32 55 01/15/17 11:32 97.8 51 16 138/60 99 01/15/17 10:47 61 01/15/17 09:40 70 01/15/17 08:02 66 01/15/17 07:38 65 01/15/17 07:38 97.7 64 16 148/78 99 01/15/17 06:00 58 01/15/17 05:00 58 01/15/17 04:00 56 01/15/17 03:00 58 01/15/17 03:00 65 119/59 96 01/15/17 02:00 58 01/15/17 01:00 56 01/15/17 00:00 56 01/14/17 23:00 98.2 65 112/50 94 01/14/17 23:00 58 01/14/17 22:00 62 01/14/17 21:00 68 01/14/17 20:00 68 01/14/17 19:00 54 01/14/17 19:00 97.4 60 155/58 96 01/14/17 18:00 60 01/14/17 17:00 54 01/14/17 16:00 56 01/14/17 15:00 70 01/14/17 15:00 97.9 55 16 137/64 96 01/14/17 14:00 62 01/14/17 13:00 64 I/O 01/14/17 01/14/17 01/14/17 01/15/17 01/15/17 01/15/17 07:00 15:00 23:00 07:00 15:00 23:00 Intake Total 630 ml 749 ml 600 ml Balance 630 ml 749 ml 600 ml Intake Oral 480 ml 600 ml 480 ml IV Total 150 ml 149 ml 120 ml # Voids 3 4 3 # Bowel Movements 0 Result Diagram: 01/15/17 0501/15/1725 Imaging Last Impressions Pancreas Ultrasound 01/13/17 0000 Signed Impressions: Service Date/Time: Friday, January 13, 2017 16:48 - CONCLUSION: 1. A cystic mass is confirmed within the expected region of the uncinate process of the pancreas measuring 3.1 x 2.4 x 2.9 cm sonographically and remains indeterminate. The main pancreatic duct is mildly dilated. 2. Mild hepatomegaly. Bandar Flores MD Chest CT 01/12/17 0000 Signed Impressions: Service Date/Time: Thursday, January 12, 2017 17:55 - CONCLUSION: 1. Coronary artery calcifications. 2. Infrarenal abdominal aortic aneurysm measuring 4.3 cm AP x 3.4 cm transverse dimension. 3. 2.6 x 2.3 cm cystic mass within the uncinate process of the pancreas. 4. 3.3 x 1.5 cm left adrenal nodule consistent with possible adrenal adenoma. 5. Minimal fibrotic scarring within the posterior lung bases bilaterally. 6. Degenerative changes and scoliosis of the thoracolumbar spine. Bandar Flores MD Chest X-Ray 01/11/17 0925 Signed Impressions: Service Date/Time: Wednesday, January 11, 2017 09:40 - CONCLUSION: Normal examination. Tata Wilder MD Objective Remarks GENERAL: NAD SKIN: Warm and dry. HEAD: Normocephalic. EYES: No scleral icterus. No injection or drainage. NECK: Supple, trachea midline. No JVD or lymphadenopathy. CARDIOVASCULAR: Regular rate and rhythm without murmurs, gallops, or rubs. RESPIRATORY: Breath sounds equal bilaterally. No accessory muscle use. GASTROINTESTINAL: Abdomen soft, non-tender, nondistended. MUSCULOSKELETAL: No cyanosis, or edema. BACK: Nontender without obvious deformity. No CVA tenderness. PSYCH: Mood and affect appropriate. Medications and IVs Current Medications Medications (Trade) Dose Ordered Sig/Munira Route Start Time Stop Time Status Last Admin (Heparin Inj) 5,000 units UNSCH PRN IV 01/11/17 18:15 Heparin Sodium (Porcine) 2500 units 2,500 units UNSCH PRN IV 01/11/17 18:15 01/12/17 20:38 (Heparin-D5W Inj) 250 ml @ 0 mls/hr TITRATE IV 01/11/17 12:15 01/14/17 21:51 (Nitroglycerin 2% Oint) 1 inch Q6HR TOPICAL 01/11/17 18:00 01/15/17 11:35 (Aspirin Chew) 81 mg DAILY PO 01/12/17 09:00 01/15/17 08:58 (Lopressor) 25 mg Q12HR PO 01/11/17 13:00 01/15/17 08:58 (Norvasc) 2.5 mg DAILY PO 01/12/17 09:00 01/15/17 08:58 (Xanax) 0.25 mg Q6H PRN PO 01/11/17 12:30 (Lipitor) 20 mg DAILY PO 01/12/17 09:00 01/15/17 08:57 (NS Flush) 2 ml UNSCH PRN IV FLUSH 01/11/17 12:45 (NS Flush) 2 ml BID IV FLUSH 01/11/17 21:00 01/15/17 08:58 (Tylenol) 650 mg Q4H PRN PO 01/11/17 12:45 (Zofran Inj) 4 mg Q6H PRN IVP 01/11/17 12:45 (Tylenol) 650 mg Q6H PRN PO 01/11/17 12:45 (Morphine Inj) 4 mg Q3H PRN IV 01/11/17 12:45 01/14/17 01:58 (Narcan Inj) 0.4 mg UNSCH PRN IV 01/11/17 12:45 (Pill Splitter) 1 ea UNSCH PRN OTHER 01/11/17 13:15 A/P Problem List: (1) Multi-vessel coronary artery stenosis ICD Code: I25.10 Status: Acute (2) Non-ST elevation myocardial infarction (NSTEMI) ICD Code: I21.4 Status: Acute (3) Hypertension ICD Code: I10 Status: Chronic (4) Chest pain ICD Code: R07.9 Status: Acute (5) Hyperlipidemia ICD Code: E78.5 Status: Chronic (6) History of CVA (cerebrovascular accident) ICD Code: Z86.73 Status: Chronic Assessment and Plan NSTEMI Recent diagnosis of multi vessel CAD October 2016 - Prox LAD, Prox LCx, Distal LCx, non-dominant RCA. Patient then refused bypass/intervention and now presents with non-ST elevation NE. Chest x-ray without any cardio pulmonary disease. Appreciate input from Cardiology and CT surgery. CT scan showed: Coronary artery calcifications; Infrarenal abdominal aortic aneurysm measuring 4.3 cm AP x 3.4 cm transverse dimension; 2.6 x 2.3 cm cystic mass within the uncinate process of the pancreas; 3.3 x 1.5 cm left adrenal nodule consistent with possible adrenal adenoma. Echo with normal EF. - Continue heparin drip, Norvasc 2.5 mg daily, Lopressor 25 mg twice a day, Nitropaste and Lipitor 20 mg daily. - cardiothoracic surgery work-up in progress. CABG tentatively scheduled for Thursday. - oxygen and pain meds as needed. - telemetry. Pancreatic mass Noted on CT scan. Ultrasound showed: cystic mass is confirmed within the expected region of the uncinate process of the pancreas measuring 3.1 x 2.4 x 2.9 cm sonographically and remains indeterminate; the main pancreatic duct is mildly dilated. - general surgery consult pending. - would recommend further work up with MRCP which may be obtained following surgery. Hypertension Well controlled. - continue Norvasc 2.5 mg daily and Lopressor 25 mg daily. Constipation The pt has not had a bowel movement in a few days. - Miralax x 1. - start Colace. DVT prophylaxis: Heparin drip Discharge Planning Awaiting further CT surgery evaluation. Anticipate CABG Thursday. Bk Jamison DO Jan 15, 2017 12:44
[2017-01-15] MEDS ORDERED: POLYETHYLENE GLYCOL 17 GM PKG PO ONE (13:00)
--- NOTE | 2017-01-15 14:30 | PD.CAR.PN ---
CVT Progress Note Subjective/Hospital Course: 86/ male hx of CAD , seen by Dr Hilario in Oct heart cath for multi vessel disease/ decided against surgery at that time 11/20 caring for his who has dementia . 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, ( right CEA Oct 2013) hx of CVA, PVD, AAA PFT FEV1 1.7/ mild obstructive disease CT Chest 01/12 coronary artery calcifications infrarenal AAA 4.3cmx 3.4cm 2.6x2.3cm cystic mass in pancreas ( US of abd and pancreas pending ) 3.3x1.5 left adrenal nodule 01/[address] Hilario spoke with pt/ tentatively scheduled for surgery on Thursday, PRU pending on 01/15 also pending US abd and pancreas/ will meet with family and pt again tomorrow afternoon on heparin gtt 01/14 pt had episode of chest pain last pm US pancreas noted recommend general surgery eval prior to CABG still tentatively scheduled for surgery on monday 01/15 appreciate General surgery in put/ outpt f/u for pancreatic cyst with MRI on room air, no chest pain last pm for OR in am Objective: GENERAL: SKIN: Warm and dry. HEAD: Normocephalic. EYES: No scleral icterus. No injection or drainage. NECK: Supple, trachea midline. No JVD or lymphadenopathy. CARDIOVASCULAR: Regular rate and rhythm without murmurs, gallops, or rubs. RESPIRATORY: Breath sounds equal bilaterally. No accessory muscle use. GASTROINTESTINAL: Abdomen soft, non-tender, nondistended. MUSCULOSKELETAL: No cyanosis, or edema. BACK: Nontender without obvious deformity. No CVA tenderness. Vital Signs Date Time Temp Pulse Resp B/P Pulse Ox O2 Delivery O2 Flow Rate FiO2 01/15/17 14:15 63 01/15/17 13:42 87 01/15/17 12:27 56 01/15/17 11:32 55 01/15/17 11:32 97.8 51 16 138/60 99 01/15/17 10:47 61 01/15/17 09:40 70 01/15/17 08:02 66 01/15/17 07:38 65 01/15/17 07:38 97.7 64 16 148/78 99 01/15/17 06:00 58 01/15/17 05:00 58 01/15/17 04:00 56 01/15/17 03:00 58 01/15/17 03:00 65 119/59 96 01/15/17 02:00 58 01/15/17 01:00 56 01/15/17 00:00 56 01/14/17 23:00 98.2 65 112/50 94 01/14/17 23:00 58 01/14/17 22:00 62 01/14/17 21:00 68 01/14/17 20:00 68 01/14/17 19:00 54 01/14/17 19:00 97.4 60 155/58 96 01/14/17 18:00 60 01/14/17 17:00 54 01/14/17 16:00 56 01/14/17 15:00 70 01/14/17 15:00 97.9 55 16 137/64 96 Labs: Laboratory Tests Test 01/15/17 05:25 White Blood Count 6.7 TH/MM3 (4.0-11.0) Red Blood Count 4.40 MIL/MM3 (4.50-5.90) Hemoglobin 12.8 GM/DL (13.0-17.0) Hematocrit 39.0 % (39.0-51.0) Mean Corpuscular Volume 88.6 FL (80.0-100.0) Mean Corpuscular Hemoglobin 29.1 PG (27.0-34.0) Mean Corpuscular Hemoglobin 32.9 % Concent (32.0-36.0) Red Cell Distribution Width 13.0 % (11.6-17.2) Platelet Count 192 TH/MM3 (150-450) Mean Platelet Volume 10.3 FL (7.0-11.0) Neutrophils (%) (Auto) 71.6 % (16.0-70.0) Lymphocytes (%) (Auto) 16.3 % (9.0-44.0) Monocytes (%) (Auto) 7.7 % (0.0-8.0) Eosinophils (%) (Auto) 3.9 % (0.0-4.0) Basophils (%) (Auto) 0.5 % (0.0-2.0) Neutrophils # (Auto) 4.8 TH/MM3 (1.8-7.7) Lymphocytes # (Auto) 1.1 TH/MM3 (1.0-4.8) Monocytes # (Auto) 0.5 TH/MM3 (0-0.9) Eosinophils # (Auto) 0.3 TH/MM3 (0-0.4) Basophils # (Auto) 0.0 TH/MM3 (0-0.2) CBC Comment DIFF FINAL Differential Comment Prothrombin Time 10.5 SEC (9.8-11.6) Prothromb Time International 1.0 RATIO Ratio Activated Partial 59.5 SEC Thromboplast Time (24.3-30.1) Platelet Function P2Y12 React 193 PRU Units (194-418) Sodium Level 142 MEQ/L (136-145) Potassium Level 4.0 MEQ/L (3.5-5.1) Chloride Level 105 MEQ/L (98-107) Carbon Dioxide Level 30.2 MEQ/L (21.0-32.0) Anion Gap 7 MEQ/L (5-15) Blood Urea Nitrogen 18 MG/DL (7-18) Creatinine 0.82 MG/DL (0.60-1.30) Estimat Glomerular Filtration 89 ML/MIN (>89) Rate Random Glucose 109 MG/DL (74-106) Calcium Level 8.7 MG/DL (8.5-10.1) Blood Type A POSITIVE Antibody Screen NEGATIVE Crossmatch Leukocyte-Reduced Red Blood Cells Blood Bank Comment Result Diagram: 01/15/1752401/15/17524 Telemetry: NSR (1) Non-ST elevation myocardial infarction (NSTEMI) Plan: Stabilized on IV heparin/ ASA statin BB / nitro paste (2) Hypertension Plan: controlled (3) Hyperlipidemia (4) Multi-vessel coronary artery stenosis Plan: for surgery on Thursday (5) Antiplatelet or antithrombotic long-term use Plan: PRU 193 today (6) Pancreatic mass Plan: will have general surgery Tata Roberson Jan 15, 2017 14:30
--- NOTE | 2017-01-15 17:15 | MB ---
cc: ISRRAEL BUSTILLO MD DATE OF CONSULTATION 01/15/2017. REASON FOR CONSULTATION Pancreatic cystic mass adrenal adenoma HISTORY OF PRESENT ILLNESS The patient is ab 86-year-old male who presented initially several days ago due to chest pain. The patient has a history of coronary artery disease and has undergone cardiac workup and subsequently had recurrence of chest pain with positive troponins and is currently being treated for this. The patient has planned to go to the operating room for open heart surgery. Upon workup, the patient noted to have incidental finding including pancreatic cystic mass 3.1 cm. The patient has normal LFTs, total bilirubin. On my exam, the patient is resting comfortably. He says his chest pain has improved. On further investigation, the patient notes and denies any abdominal pain or abdominal issues. He denies any scleral icterus or jaundice. He does note some weight loss but has noted this has been going on chronically for some time. The patient further denies any cancer history or family history of cancer either. The patient denies fevers, chills, nausea, vomiting, diarrhea or constipation. PAST MEDICAL HISTORY 1. Hypertension, 2. Hyperlipidemia, 3. Coronary artery disease, 4. Carotid disease, 5. Stroke 6. Aortic aneurysm, 7. Peripheral vascular disease. PAST SURGICAL HISTORY 1. Right carotid endarterectomy 2. Appendectomy 3. Cardiac cath. MEDICATIONS See EMR. 1. Aspirin. 2. Plavix. SOCIAL HISTORY Denies ETOH, IVDA or current smoking, previous smoking history however ALLERGIES No known drug allergies. FAMILY HISTORY Denies hypertension, diabetes or cancers. REVIEW OF SYSTEMS GENERAL: Denies fevers or chills. HEENT: Denies eye pain, ear pain. NECK: Denies of swelling or pain. CARDIOVASCULAR: Complained of chest pain, murmur. RESPIRATORY: Denies cough or wheeze. ABDOMEN: Denies nausea, vomiting. : Denies dysuria, hematuria. ENDOCRINE: Denies polyuria, polydipsia. PSYCHIATRIC: Denies change in mood or sensorium. NEUROLOGIC: Denies any numbness or tingling. PHYSICAL EXAMINATION GENERAL: The patient in no acute distress. VITAL SIGNS: Temperature 98.7, pulse 55, respirations 16, 99% on room air, blood pressure 138/60. HEENT: Pupils equal, round, reactive to light and accommodation NECK: Supple. Trachea midline. LUNGS: Bilateral expansion. Clear. HEART: S1-S2, positive murmur. ABDOMEN: Soft, nontender, nondistended. Well-healed surgical scar. EXTREMITIES: Warm, well-perfused. No edema. INTEGUMENT: No obvious masses or lesions. PSYCHIATRIC: Good insight, good judgment. LABORATORY AND DIAGNOSTIC DATA WBC 6.7, hemoglobin 12.8, hematocrit 39, platelets 192. Sodium 142, potassium 4, chloride 105, BUN 18, creatinine 0.82, troponin is elevated, albumin 3.3, INR one, PT 10.5, PTT 59.5. IMAGING STUDIES Reviewed by myself. CT chest - Coronary calcifications, aortic aneurysm 4.3 cm. Cystic pancreatic mass 2.6 x 2.3 cm uncinate process, left adrenal mass 2.2 cm, minimal scarring within the posterior lung bases. Pancreatic ultrasound - cystic mass confirmed within the region of the uncinate process 3.1 x 2.4 x 2.9 cm, main duct mildly dilated mild hepatomegaly. ASSESSMENT An 86-year-old male recent IA. Plan for cardiac surgery incidental pancreatic mass, adrenal mass. PLAN After full clinical, radiologic, laboratory workup the patient with above-named issues. 1. The patient does have a cystic pancreatic mass. At this time, the patient does have some radiologic workup with the finding of this mass. However, I recommend checking CEA and CA 19 blood work. The patient would benefit from further radiologic workup to completely rule out any other potential metastatic disease. This is a low likelihood as the nature of the cystic mass and the fact that ultrasound and CT chest do not show any lymphadenopathy. However, it would be prudent to examine the entire abdomen and the rest of the liver that are not captured on these current scans. Would recommend MRI, MRCP with and without contrast. The patient may also benefit from endoscopic ultrasound EUS, however, currently the patient has more pressing issue including cardiac surgery planning. At this point\, the patient needs to proceed with his cardiac event and surgery and address the pancreatic mass at a later date. 2. In regards to the adrenal adenoma, also appears to be nonfunctional asymptomatic. However, the patient can also have this further worked up as an outpatient to rule out any further concerns. Again, the patient also is somewhat advanced age. This would also take into account further management and workup. At this point, the patient can follow up with [facility]. Discussed the case with Dr. Fabrizio Du and the patient to be referred to surgical oncology with Dr. Fabrizio Du. He can follow up again following acute cardiac issues. Thank you for the consultation. MD REDDY Maldonado/ /3:12 PM /4:36 PM SARA
[2017-01-15] MEDS: HEPARIN-D5W INJ 250 ML IV SCH (18:24)
[2017-01-15 18:58] LABS: HEMOGLOBIN A1a 1.2 %; HEMOGLOBIN A1b 1.7 %; HEMOGLOBIN Ao 84.6 %; HEMOGLOBIN P3 3.9 %
[2017-01-15] MEDS: DOCUSATE SODIUM 100 MG CAP PO SCH (20:58)
[2017-01-15] MEDS ORDERED: INSULIN HUMAN REGULAR 1,000 UNITS/10 ML VIAL SQ PRN (22:15)
[2017-01-15] MEDS ORDERED: SODIUM CHLORID 0.9% 500 ML IV PRN (22:15)
[2017-01-15] MEDS ORDERED: CHLORHEXIDINE GLUCONATE 2 % 1 PACK (2 CLOTHS) TOPICAL PRN (22:15)
[2017-01-15] MEDS ORDERED: POVIDONE IODINE 5% (ANTISEPSIS KIT) 4 APPLICATIONS EACH NARE PRN (22:15)
[2017-01-16] VITALS (26 sets, daily range): BP systolic 95–160; BP diastolic 38–73; PULSE 52–96; RESP 12–19; TEMP 95.1–98.7; O2SAT 95–99
[2017-01-16] MEDS ORDERED: CALCIUM CHLORIDE 10% SOLN 1 GRAM/10 ML SYR IV ONE (05:00)
[2017-01-16] MEDS ORDERED: LACTATED RINGER'S 1000 ML INJ 1,000 ML IV SCH (05:00)
[2017-01-16] MEDS ORDERED: GLYCOPYRROLATE 0.2 MG/ML VIAL IV ONE (05:00)
[2017-01-16] MEDS ORDERED: EPINEPHrine HCL (1:1000) 30 MG/30 ML VIAL IV ONE (05:00)
[2017-01-16] MEDS ORDERED: VECURONIUM BROMIDE 10 MG VIAL IV ONE (05:00)
[2017-01-16] MEDS ORDERED: PROPOFOL 1000 MG/100 ML INJ 100 ML IV ONE (05:00)
[2017-01-16] MEDS ORDERED: ceFAZolin INJ 1,000 MG VIAL IV ONE (05:00)
[2017-01-16] MEDS ORDERED: PROTAMINE SULFATE 250 MG/25 ML VIAL IV ONE (05:00)
[2017-01-16] MEDS ORDERED: LIDOCAINE HCL 1% 30 ML VIAL OTHER ONE (05:00)
[2017-01-16] MEDS ORDERED: MAGNESIUM SULFATE 1000 MG/2 ML VIAL (PED) IV ONE (05:00)
[2017-01-16] MEDS ORDERED: HEPARIN SODIUM - SQ 10,000 UNITS/ML VIAL SQ ONE (05:00)
[2017-01-16] MEDS: METOPROLOL TARTRATE 25 MG TAB PO SCH ×2 (05:25→21:35)
[2017-01-16] MEDS: NITROGLYCERIN 2% OINT 1 GM PACKET TOPICAL SCH ×4 (06:00→18:00)
[2017-01-16] MEDS ORDERED: VANCOMYCIN HCL 1000 MG VIAL ONE (06:23)
[2017-01-16] MEDS ORDERED: HEPARIN SODIUM - SQ 10,000 UNITS/ML VIAL ONE (06:24)
[2017-01-16] MEDS ORDERED: POTASSIUM CHLORIDE 20 MEQ/10 ML VIAL ONE (07:02)
[2017-01-16] MEDS: SODIUM CHLORIDE 0.9% FLUSH 10 ML FLUSH IV FLUSH SCH ×2 (09:00→21:36)
[2017-01-16] MEDS: DOCUSATE SODIUM 100 MG CAP PO SCH ×2 (09:00→21:35)
[2017-01-16] MEDS: amLODIPine BESYLATE 5 MG TAB PO SCH (09:00)
[2017-01-16] MEDS: ATORVASTATIN 20 MG TAB PO SCH (09:00)
[2017-01-16] MEDS ORDERED: LACTATED RINGER'S 1000 ML INJ 500 ML IV PRN (11:42)
[2017-01-16] MEDS ORDERED: ALBUMIN HUMAN 5% 12.5 GM/250 ML BOTTLE IV PRN (11:45)
[2017-01-16] MEDS ORDERED: PHENYLEPHRINE INJ 40 MG in DEXTROSE 5% IN WATE 500 ML INJ 496 ML IV SCH ×2 (11:45)
[2017-01-16] MEDS ORDERED: POTASSIUM CHLORIDE 20 MEQ CONTROLLED RELEASE TAB PO PRN ×2 (11:45)
[2017-01-16] MEDS ORDERED: CALCIUM CHLORIDE 10% 1 GRAM/10 ML VIAL IV PRN (11:45)
[2017-01-16] MEDS ORDERED: MORPHINE SULFATE 4 MG/ML INJ IV PRN (11:45)
[2017-01-16] MEDS ORDERED: ACETAMINOPHEN 650 MG SUPP RECTAL PRN (11:45)
[2017-01-16] MEDS ORDERED: ONDANSETRON HCL 4 MG/2 ML VIAL IV PUSH PRN (11:45)
[2017-01-16] MEDS ORDERED: KETOROLAC TROMETHAMINE 30 MG/ML (IVP) VIAL IV PUSH PRN (11:45)
[2017-01-16] MEDS ORDERED: ACETAMINOPHEN/HYDROcodone 325 MG/5 MG TAB PO PRN ×2 (11:45)
[2017-01-16] MEDS ORDERED: hydrALAZINE HCL 20 MG/ML VIAL IV PRN (11:45)
[2017-01-16] MEDS ORDERED: POTASSIUM CHLOR 20 MEQ PREMIX 100 ML IV PRN ×2 (11:45)
[2017-01-16] MEDS ORDERED: MAGNESIUM SULFATE INJ 2 GM in SODIUM CHLORIDE 0.9% INJ 100 ML IV PRN ×4 (11:45)
[2017-01-16] MEDS ORDERED: ACETAMINOPHEN 325 MG TAB PO PRN (11:45)
[2017-01-16] MEDS ORDERED: Post-op Orders (for Pharmacy) MISC OTHER ONE (11:45)
[2017-01-16] MEDS ORDERED: METOPROLOL TARTRATE 5 MG/5 ML VIAL IV PUSH PRN (11:45)
[2017-01-16] MEDS ORDERED: DEXTROSE 50% IN WATER 50 ML VIAL(D50) IV PUSH PRN (11:45)
[2017-01-16] MEDS ORDERED: MEPERIDINE HCL 25 MG/ML VIAL IV PRN (11:45)
--- NOTE | 2017-01-16 11:56 | PD.OP ---
cc: Ramonita Hilario MD; Tim Rodriguez DO; Asaf Larsen MD Operative Report Date of Surgery: Jan 16, 2017 Preoperative Diagnosis: Postoperative Diagnosis: Procedure: 1. Urgent Clampless Off-pump Coronary Artery Bypass Grafting x 3 with left internal mammary artery (JENKINS) to left anterior descending (LAD), sequential reverse saphenous vein graft to OM1 and distal Left Circumflex artery 2. Transmyocardial Laser Revascularization 3. Left Leg Endoscopic Vein Vici 4. Epiaortic Ultrasound 5. Intraoperative Vein Mapping. . Surgeon: Ramonita Hilario Epic Application Coordinator(s): Rivka Santana Operation and Findings: PREPROCEDURE DIAGNOSES 1. Severe Multi Vessel Coronary Artery Disease 2. Severely Calcified Ascending Aorta 3. Pancreatic Mass 4. Unstable Angina POSTPROCEDURE DIAGNOSES Same SURGICAL PROCEDURE 1. Urgent Clampless Off-pump Coronary Artery Bypass Grafting x 3 with left internal mammary artery (JENKINS) to left anterior descending (LAD), sequential reverse saphenous vein graft to OM1 and distal Left Circumflex artery 2. Transmyocardial Laser Revascularization 3. Left Leg Endoscopic Vein Vici 4. Epiaortic Ultrasound 5. Intraoperative Vein Mapping. SURGEON Ramonita Hilario MD VOCATIONAL TECHNICAL EDUCATION DIRECTOR [employer] ANESTHESIA General endotracheal BUTTON CLAMPER Alaina Thomson, KIM Whipple MD PREPARATION ChloraPrep. COUNTS Needle, sponge, and instrument counts were correct. DRAINS Two 32-Azerbaijani mediastinal tubes. COMPLICATIONS None. INDICATIONS FOR PROCEDURE The patient is a 86-year-old presenting with chest pain. Patient was noted to have multi-vessel coronary artery disease and is being brought to the operating room for surgical revascularization therapy. PROCEDURE Patient was brought to the operating room and placed supine on the OR table. Following the induction of adequate general endotracheal anesthesia and placement of appropriate monitoring devices, intraoperative vein mapping was performed which revealed suitable-caliber conduit in the left lower extremity. The patient was then prepped and draped in standard sterile fashion. Next, 2500 units of intravenous heparin was given. The left greater saphenous vein was harvested endoscopically. This appeared to be a good-caliber conduit. Simultaneously, a median sternotomy was performed and the left internal mammary artery dissected free off the posterior sternal table. The patient was systemically heparinized and anticoagulation monitored by serial ACT measurements. The internal mammary artery had good pulsatile flow in it and was a decent-caliber conduit. The pericardium was then divided in the midline, the cradle created and targets analyzed. The ascending aorta was noted to be heavily calcified. There was a small 1 cm area in the proximal aorta just distal to the sinotubular junction that was spared of calcific disease. Epiaortic ultrasonography was performed to confirm the above findings. At this point, all anastomoses were performed in a beating-heart fashion using the [employer] stabilizing system. The left internal mammary artery was anastomosed to the distal LAD in an end-to-side fashion using 7-0 Prolene. Segment of saphenous vein graft was then anastomosed to the OM1 in a side-to side fashion and sequentially to the terminal left circumflex artery an end-to-side fashion using 7-0 Prolene. The proximal anastomosis was then constructed to the ascending aorta in a clampless running manner using the Heartstring III facilitating device and a 6-0 Prolene. All anastomotic sites were inspected and appeared to be hemostatic and patent. Due to the diffuseness of the disease involving the Circumflex territory, the lateral wall was treated with transmyocardial laser revascularization therapy. 9 transmural channels were created. Protamine solution was given. Strict hemostasis was assured. The TMR sites were inspected and noted to be hemostatic. The closure was undertaken. 2 chest tubes were placed. The pericardium was reapproximated in the midline. The sternum was approximated using sternal wires. The muscular and fascial layer were then closed in 3 layers. The endoscopic vein harvest site was closed in 2 layers. The patient tolerated the procedure well and was transferred to CVICU in stable condition. Ramonita Hilario MD Jan 16, 2017 11:56
[2017-01-16] MEDS ORDERED: NITROGLYCERIN-DEXTROSE INJ 250 ML IV SCH (12:00)
[2017-01-16] MEDS ORDERED: DOPamine INJ PREMIX 500 ML IV SCH (12:00)
[2017-01-16] MEDS ORDERED: DOBUTamine PREMIX DRIP 250 ML IV SCH (12:00)
[2017-01-16] MEDS ORDERED: fentaNYL CITRATE 1000 MCG/20 ML VIAL ONE (12:28)
[2017-01-16] MEDS ORDERED: MIDAZOLAM HCL 5 MG/5 ML VIAL ONE (12:28)
[2017-01-16] MEDS ORDERED: EPINEPHrine (1:1000) INJ 4 MG in DEXTROSE 5% IN WATER INJ 246 ML IV SCH ×2 (13:00)
[2017-01-16] MEDS ORDERED: DEXMEDETOMIDINE INJ 50 ML IV SCH (13:00)
[2017-01-16] MEDS ORDERED: INSULIN REGULAR (IV INFUSION) 100 UNITS in SODIUM CHLORIDE 0.9% INJ 99 ML IV SCH (13:00)
[2017-01-16] MEDS ORDERED: CLEVIDIPINE INJ 50 ML IV SCH (13:00)
[2017-01-16] MEDS ORDERED: PHENYLEPHRINE HCL 10 MG/ML VIAL ONE (13:06)
[2017-01-16] MEDS: ACETAMINOPHEN 1000 MG/100 ML VIAL IV SCH ×2 (13:16→18:41)
[2017-01-16] MEDS: POTASSIUM CHLOR 20 MEQ PREMIX 100 ML IV PRN ×2 (13:16→18:40)
--- NOTE | 2017-01-16 13:16 | RADRPT ---
EXAM DATE/TIME: 01/16/2017 12:27 [place] COMPARISON: CHEST SINGLE AP, January 11, 2017, 9:40. INDICATIONS : Post op CABG MEDICAL HISTORY : Hypertension. Cardiovascular disease. Cerebrovascular disease. SURGICAL HISTORY : CABG. Appendectomy. ENCOUNTER: Subsequent ACUITY: 1 day PAIN SCORE: Non-responsive. LOCATION: Bilateral chest FINDINGS: Nasogastric tube, ET tube, mediastinal drain, chest drain, central lines are in good position. There is no pneumothorax. The lungs are clear. The mediastinal contour appears to be appropriate. CONCLUSION: Satisfactory appearance of the chest. Yogesh Ponce MD FACR on January 16, 2017 at 13:01 Board Certified Radiologist. This report was verified electronically.
[2017-01-16] MEDS: CALCIUM CHLORIDE INJ 1 GM in SODIUM CHLORIDE 0.9% INJ 100 ML IV PRN ×2 (13:18→16:24)
[2017-01-16] MEDS ORDERED: AMINOCAPROIC ACID INJ 250 MG/ML 20 ML VIAL IV ONE (14:02)
[2017-01-16] MEDS ORDERED: LACTATED RINGER'S 1000 ML INJ 1,000 ML IV ONE (14:02)
[2017-01-16] MEDS ORDERED: SODIUM CHLOR 0.9% 250 ML INJ 250 ML IV ONE (14:02)
[2017-01-16] MEDS ORDERED: NORMOSOL R INJ 1,000 ML IV ONE (14:02)
--- NOTE | 2017-01-16 14:22 | HHI.PR ---
Subjective Remarks The patient was seen in the CVICU following CABG. He tolerated surgery well per nursing. He was still on the ventilator. He appeared comfortable and was waking up on command. No acute concerns from nursing. Objective Vitals Vital Signs Date Time Temp Pulse Resp B/P Pulse Ox O2 Delivery O2 Flow Rate FiO2 01/16/17 12:34 99 40 01/16/17 12:19 99 50 01/16/17 12:13 95.1 68 12 119/57 99 95/38 01/16/17 12:13 68 01/16/17 06:00 58 01/16/17 05:00 57 01/16/17 04:00 61 01/16/17 03:00 97.3 61 18 149/72 95 01/16/17 03:00 59 01/16/17 02:00 58 01/16/17 01:00 68 01/16/17 00:00 52 01/15/17 23:00 52 01/15/17 23:00 97.9 75 18 121/49 95 01/15/17 22:00 60 01/15/17 21:00 62 01/15/17 20:00 66 01/15/17 19:00 59 01/15/17 19:00 98.0 66 18 154/69 97 01/15/17 18:26 52 01/15/17 17:24 54 01/15/17 16:03 51 01/15/17 15:23 97.7 55 18 122/57 98 01/15/17 15:23 54 I/O 01/15/17 01/15/17 01/15/17 01/16/17 01/16/17 01/16/17 07:00 15:00 23:00 07:00 15:00 23:00 Intake Total 600 ml 1200 ml 372 ml Output Total 1100 ml Balance 600 ml 1200 ml -728 ml Intake Oral 480 ml 1200 ml 240 ml IV Total 120 ml 132 ml Output Urine Total 1100 ml # Voids 3 4 2 # Bowel Movements 0 0 Result Diagram: 01/15/17 0525 01/15/17 0525 Imaging Last Impressions Pancreas Ultrasound 01/13/17 0000 Signed Impressions: Service Date/Time: Friday, January 13, 2017 16:48 - CONCLUSION: 1. A cystic mass is confirmed within the expected region of the uncinate process of the pancreas measuring 3.1 x 2.4 x 2.9 cm sonographically and remains indeterminate. The main pancreatic duct is mildly dilated. 2. Mild hepatomegaly. Bandar Flores MD Chest CT 01/12/17 0000 Signed Impressions: Service Date/Time: Thursday, January 12, 2017 17:55 - CONCLUSION: 1. Coronary artery calcifications. 2. Infrarenal abdominal aortic aneurysm measuring 4.3 cm AP x 3.4 cm transverse dimension. 3. 2.6 x 2.3 cm cystic mass within the uncinate process of the pancreas. 4. 3.3 x 1.5 cm left adrenal nodule consistent with possible adrenal adenoma. 5. Minimal fibrotic scarring within the posterior lung bases bilaterally. 6. Degenerative changes and scoliosis of the thoracolumbar spine. Bandar Flores MD Chest X-Ray 01/11/17 0925 Signed Impressions: Service Date/Time: Wednesday, January 11, 2017 09:40 - CONCLUSION: Normal examination. Tata Wilder MD Objective Remarks GENERAL: On ventilator. SKIN: Warm and dry. HEAD: Normocephalic. EYES: No scleral icterus. No injection or drainage. NECK: Supple, trachea midline. No JVD or lymphadenopathy. CARDIOVASCULAR: Regular rate and rhythm without murmurs, gallops, or rubs. RESPIRATORY: Breath sounds equal bilaterally. No accessory muscle use. On vent. GASTROINTESTINAL: Abdomen soft, non-tender, nondistended. MUSCULOSKELETAL: No cyanosis, or edema. BACK: Nontender without obvious deformity. No CVA tenderness. PSYCH: Unable to ascertain. Procedures CABG 01/16 Medications and IVs Current Medications Medications (Trade) Dose Ordered Sig/Munira Route Start Time Stop Time Status Last Admin (Heparin Inj) 5,000 units UNSCH PRN IV 01/11/17 18:15 Heparin Sodium (Porcine) 2500 units 2,500 units UNSCH PRN IV 01/11/17 18:15 01/12/17 20:38 (Heparin-D5W Inj) 250 ml @ 0 mls/hr TITRATE IV 01/11/17 12:15 01/15/17 18:24 (Nitroglycerin 2% Oint) 1 inch Q6HR TOPICAL 01/11/17 18:00 01/16/17 00:00 (Lopressor) 25 mg Q12HR PO 01/11/17 13:00 01/16/17 05:25 (Norvasc) 2.5 mg DAILY PO 01/12/17 09:00 01/15/17 08:58 (Xanax) 0.25 mg Q6H PRN PO 01/11/17 12:30 (Lipitor) 20 mg DAILY PO 01/12/17 09:00 01/15/17 08:57 (NS Flush) 2 ml UNSCH PRN IV FLUSH 01/11/17 12:45 (NS Flush) 2 ml BID IV FLUSH 01/11/17 21:00 01/15/17 08:58 (Zofran Inj) 4 mg Q6H PRN IVP 01/11/17 12:45 (Tylenol) 650 mg Q6H PRN PO 01/11/17 12:45 (Narcan Inj) 0.4 mg UNSCH PRN IV 01/11/17 12:45 (Pill Splitter) 1 ea UNSCH PRN OTHER 01/11/17 13:15 Docusate Sodium 100 mg 100 mg BID PO 01/15/17 21:00 01/15/17 20:58 Dexmedetomidine HCl 50 ml @ 0 mls/hr TITRATE IV 01/16/17 13:00 Nitroglycerin/ Dextrose 250 ml @ 0 mls/hr TITRATE IV 01/16/17 12:00 Dobutamine HCl/ Dextrose 250 ml @ 10.545 mls/ hr [id number] IV 01/16/17 12:00 Dopamine HCl/ Dextrose 500 ml @ 0 mls/hr TITRATE IV 01/16/17 12:00 Epinephrine HCl 4 mg/Dextrose 250 ml @ 0 mls/hr TITRATE IV 01/16/17 13:00 Phenylephrine HCl 40 mg/Dextrose 500 ml @ 0 mls/hr TITRATE IV 01/16/17 11:45 (Cleviprex Inj) 50 ml @ 0 mls/hr TITRATE IV 01/16/17 13:00 Albumin Human 12.5 gm 12.5 gm UNSCH PRN IV 01/16/17 11:45 (Lr 1000 ml Inj) 500 ml @ 500 mls/hr Q1H PRN IV 01/16/17 11:42 (Aspirin Chew) 81 mg DAILY PO 01/17/17 09:00 (Plavix) 75 mg DAILY PO 01/17/17 09:00 (Protonix) 40 mg DAILY@06 PO 01/17/17 06:00 (Cordarone) 200 mg Q12HR PO 01/16/17 21:00 (Tylenol) 650 mg Q4H PRN PO 01/16/17 11:45 (Tylenol Supp) 650 mg Q4H PRN RECTAL 01/16/17 11:45 (Ofirmev Inj) 1,000 mg Q6H IV 01/16/17 12:30 01/17/17 06:31 01/16/17 13:16 (Morphine Inj) 1 mg Q10M PRN IV 01/16/17 11:45 (Demerol Inj) 12.5 mg Q4H PRN IV 01/16/17 11:45 ([place] 5-325 Mg) 1 tab Q3H PRN PO 01/16/17 11:45 ([place] 5-325 Mg) 2 tab Q3H PRN PO 01/16/17 11:45 (Toradol Inj) 15 mg Q6H PRN IV PUSH 01/16/17 11:45 01/18/17 11:44 (fentaNYL INJ) 25 mcg Q1H PRN IV 01/16/17 11:45 (Apresoline Inj) 10 mg Q4H PRN IV 01/16/17 11:45 Metoprolol Tartrate 2.5 mg 2.5 mg Q1H PRN IV PUSH 01/16/17 11:45 Potassium Chloride 100 ml @ 50 mls/hr UNSCH PRN IV 01/16/17 11:45 01/16/17 13:16 Potassium Chloride 100 ml @ 50 mls/hr UNSCH PRN IV 01/16/17 11:45 Potassium Chloride 100 ml @ 50 mls/hr UNSCH PRN IV 01/16/17 11:45 Magnesium Sulfate 2 gm/Sodium Chloride 104 ml @ 100 mls/hr UNSCH PRN IV 01/16/17 11:45 Magnesium Sulfate 2 gm/Sodium Chloride 104 ml @ 50 mls/hr UNSCH PRN IV 01/16/17 11:45 (Calcium Chloride Inj/NS Inj) 110 ml @ 100 mls/hr UNSCH PRN IV 01/16/17 12:00 01/16/17 13:18 Calcium Chloride 0.5 gm 0.5 gm UNSCH PRN IV 01/16/17 11:45 (NovoLIN R (IV INFUSION)/NS Inj) 100 ml @ 0 mls/hr TITRATE IV 01/16/17 13:00 Dextrose 25 ml 25 ml UNSCH PRN IV PUSH 01/16/17 11:45 (Ancef 2 Gm Premix) 50 ml @ 100 mls/hr Q8H IV 01/16/17 16:00 01/18/17 00:29 A/P Problem List: (1) Multi-vessel coronary artery stenosis ICD Code: I25.10 Status: Acute (2) Non-ST elevation myocardial infarction (NSTEMI) ICD Code: I21.4 Status: Acute (3) Hypertension ICD Code: I10 Status: Chronic (4) Chest pain ICD Code: R07.9 Status: Acute (5) Hyperlipidemia ICD Code: E78.5 Status: Chronic (6) History of CVA (cerebrovascular accident) ICD Code: Z86.73 Status: Chronic Assessment and Plan NSTEMI Recent diagnosis of multi vessel CAD October 2016 - Prox LAD, Prox LCx, Distal LCx, non-dominant RCA. Patient then refused bypass/intervention and now presents with non-ST elevation DE. Chest x-ray without any cardio pulmonary disease. Appreciate input from Cardiology and CT surgery. CT scan showed: Coronary artery calcifications; Infrarenal abdominal aortic aneurysm measuring 4.3 cm AP x 3.4 cm transverse dimension; 2.6 x 2.3 cm cystic mass within the uncinate process of the pancreas; 3.3 x 1.5 cm left adrenal nodule consistent with possible adrenal adenoma. Echo with normal EF. S/p CABG 01/16. - continue medication regimen and wound care per cardiology and cardiothoracic surgery. - telemetry. - incentive spirometry. - physical therapy. Pancreatic mass Noted on CT scan. Ultrasound showed: cystic mass is confirmed within the expected region of the uncinate process of the pancreas measuring 3.1 x 2.4 x 2.9 cm sonographically and remains indeterminate; the main pancreatic duct is mildly dilated. General surgery consult appreciated. - would recommend further work up with MRCP which may be obtained following surgery. Hypertension On pressors following surgery. - meds per CTS. Constipation The pt has not had a bowel movement in a few days. - Miralax x 1. - start Colace. Respiratory failure Pt still on ventilator following surgery. - wean off vent per CTS. DVT prophylaxis: Per surgery. Discharge Planning Per CTS. Bk Jamison DO Jan 16, 2017 14:22
[2017-01-16] MEDS: ceFAZolin 2 GM PREMIX 50 ML IV SCH (15:40)
[2017-01-16] MEDS: AMIODARONE 200 MG TAB PO SCH (21:35)
[2017-01-17] VITALS (24 sets, daily range): BP systolic 111–157; BP diastolic 41–76; PULSE 67–98; RESP 16–18; TEMP 97.5–98.9; O2SAT 93–99
[2017-01-17] MEDS: ACETAMINOPHEN 1000 MG/100 ML VIAL IV SCH ×2 (00:30→06:30)
[2017-01-17] MEDS: POTASSIUM CHLOR 20 MEQ PREMIX 100 ML IV PRN (01:34)
[2017-01-17 04:37] LABS: HEMATOCRIT 33.9 % (39.0-51.0); MEAN CELL VOLUME 89.1 FL (80.0-100.0); MEAN CORPUSCULAR HEMOGLOBIN 29.3 PG (27.0-34.0); MEAN CORPUSCULAR HGB CONC 32.8 % (32.0-36.0); PLATELET COUNT 167 TH/MM3 (150-450); RED CELL DISTRIBUTION WIDTH 13.1 % (11.6-17.2); REVIEW FLAG FINAL; WHITE BLOOD COUNT 11.1 TH/MM3 (4.0-11.0)
[2017-01-17 04:48] LABS: BICARBONATE 23.9 MEQ/L (21.0-32.0); POTASSIUM 4.7 MEQ/L (3.5-5.1)
--- NOTE | 2017-01-17 05:16 | RADRPT ---
EXAM DATE/TIME: 01/17/2017 04:23 [place] COMPARISON: CHEST SINGLE AP, January 16, 2017, 12:27. INDICATIONS : Shortness of breath, possible pulmonary disease. MEDICAL HISTORY : Hypertension. Cardiovascular disease. Cerebrovascular disease. SURGICAL HISTORY : Appendectomy. CABG. ENCOUNTER: Subsequent ACUITY: 2 days PAIN SCORE: Non-responsive. LOCATION: Bilateral chest FINDINGS: Portable AP view of the chest demonstrates a normal-sized cardiac silhouette in this patient post med attila sternotomy. Right IJ line tip is in the right atrium. Left chest tube is present and no pneumotho rax is visualized. There is mild bibasilar airspace opacity. Lungs are underinflated. CONCLUSION: 1. Left chest tube remains present and no pneumothorax is visualized. 2. Underinflation with mild bibasilar opacity representing atelectasis versus consolidation. Evens Liz MD on January 17, 2017 at 5:14 Board Certified Radiologist. This report was verified electronically.
[2017-01-17] MEDS: NITROGLYCERIN 2% OINT 1 GM PACKET TOPICAL SCH ×2 (06:00)
[2017-01-17] MEDS: PANTOPRAZOLE SOD 40 MG DELAYED RELEASE TAB PO SCH (06:00)
[2017-01-17] MEDS: CLOPIDOGREL 75 MG TAB PO SCH (08:48)
[2017-01-17] MEDS: ATORVASTATIN 20 MG TAB PO SCH (08:48)
[2017-01-17] MEDS: ceFAZolin 2 GM PREMIX 50 ML IV SCH ×3 (08:48→16:09)
[2017-01-17] MEDS: AMIODARONE 200 MG TAB PO SCH ×2 (08:48→22:02)
[2017-01-17] MEDS: SODIUM CHLORIDE 0.9% FLUSH 10 ML FLUSH IV FLUSH SCH (08:48)
[2017-01-17] MEDS: DOCUSATE SODIUM 100 MG CAP PO SCH ×2 (08:49→22:01)
[2017-01-17] MEDS: METOPROLOL TARTRATE 25 MG TAB PO SCH ×2 (08:49→22:01)
[2017-01-17] MEDS: amLODIPine BESYLATE 5 MG TAB PO SCH (08:49)
[2017-01-17] MEDS: ASPIRIN 81 MG CHEW TAB PO SCH (08:49)
[2017-01-17] MEDS ORDERED: DEXTROSE 50% IN WATER 50 ML VIAL(D50) IV PRN (09:15)
[2017-01-17] MEDS ORDERED: GLUCAGON 1 MG/ML VIAL OTHER PRN (09:15)
[2017-01-17] MEDS ORDERED: SOD PHOSPHATE/SOD BIPHOSPHATE (ADULT) ENEMA 133ML RECTAL PRN (09:15)
[2017-01-17] MEDS ORDERED: BISACODYL 10 MG SUPP RECTAL PRN (09:15)
--- NOTE | 2017-01-17 09:15 | PD.CAR.PN ---
CVT Progress Note Subjective/Hospital Course: 86/ male hx of CAD , seen by Dr Hilario in Oct heart cath for multi vessel disease/ decided against surgery at that time 11/20 caring for his who has dementia . 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, ( right CEA Oct 2013) hx of CVA, PVD, AAA PFT FEV1 1.7/ mild obstructive disease CT Chest 01/12 coronary artery calcifications infrarenal AAA 4.3cmx 3.4cm 2.6x2.3cm cystic mass in pancreas ( US of abd and pancreas pending ) 3.3x1.5 left adrenal nodule 01/[address] Dr Hilario spoke with pt/ tentatively scheduled for surgery on Thursday, PRU pending on 01/15 also pending US abd and pancreas/ will meet with family and pt again tomorrow afternoon on heparin gtt 01/14 pt had episode of chest pain last pm US pancreas noted recommend general surgery eval prior to CABG still tentatively scheduled for surgery on monday 01/15 appreciate General surgery in put/ outpt f/u for pancreatic cyst with MRI on room air, no chest pain last pm for OR in am 01/16 1. Urgent Clampless Off-pump Coronary Artery Bypass Grafting x 3 with left internal mammary artery (JENKINS) to left anterior descending (LAD), sequential reverse saphenous vein graft to OM1 and distal Left Circumflex artery 2. Transmyocardial Laser Revascularization 3. Left Leg Endoscopic Vein [place] 4. Epiaortic Ultrasound 5. Intraoperative Vein Mapping. 01/17 Doing well. Extubated and tolerating Transfer [facility]IC Maintain CT Ambulate Objective: Vital Signs Date Time Temp Pulse Resp B/P Pulse Ox O2 Delivery O2 Flow Rate FiO2 01/17/17 08:04 74 01/17/17 07:28 98 Nasal Cannula 2.00 01/17/17 07:00 74 01/17/17 07:00 97.8 74 16 129/53 97 111/45 01/17/17 06:00 80 01/17/17 05:00 80 01/17/17 04:00 79 01/17/17 03:00 98.9 77 18 116/50 99 112/41 01/17/17 03:00 77 01/17/17 02:00 77 01/17/17 01:31 18 01/17/17 01:00 72 01/17/17 00:00 96 01/16/17 23:00 78 01/16/17 23:00 98.7 96 18 120/52 95 115/59 01/16/17 22:00 88 01/16/17 21:00 84 01/16/17 20:34 97 Nasal Cannula 3.00 01/16/17 20:00 90 01/16/17 19:00 87 01/16/17 19:00 98.1 87 18 126/56 97 106/43 01/16/17 18:10 97.8 01/16/17 18:00 73 01/16/17 17:00 85 01/16/17 16:27 96 Nasal Cannula 4.00 01/16/17 16:27 96 Nasal Cannula 4 01/16/17 16:00 96 01/16/17 15:33 96 40 01/16/17 15:00 96.7 94 19 160/73 97 131/56 01/16/17 15:00 97.0 01/16/17 15:00 94 01/16/17 14:20 40 01/16/17 14:00 85 01/16/17 13:00 69 01/16/17 12:34 99 40 01/16/17 12:30 95.1 01/16/17 12:19 99 50 01/16/17 12:13 95.1 68 12 119/57 99 95/38 01/16/17 12:13 68 01/16/17 12:13 50 Labs: Laboratory Tests Test 01/17/17 04:10 White Blood Count 11.1 TH/MM3 (4.0-11.0) Red Blood Count 3.80 MIL/MM3 (4.50-5.90) Hemoglobin 11.1 GM/DL (13.0-17.0) Hematocrit 33.9 % (39.0-51.0) Mean Corpuscular Volume 89.1 FL (80.0-100.0) Mean Corpuscular Hemoglobin 29.3 PG (27.0-34.0) Mean Corpuscular Hemoglobin 32.8 % Concent (32.0-36.0) Red Cell Distribution Width 13.1 % (11.6-17.2) Platelet Count 167 TH/MM3 (150-450) Mean Platelet Volume 10.5 FL (7.0-11.0) Sodium Level 144 MEQ/L (136-145) Potassium Level 4.7 MEQ/L (3.5-5.1) Chloride Level 112 MEQ/L (98-107) Carbon Dioxide Level 23.9 MEQ/L (21.0-32.0) Anion Gap 8 MEQ/L (5-15) Blood Urea Nitrogen 12 MG/DL (7-18) Creatinine 0.61 MG/DL (0.60-1.30) Estimat Glomerular Filtration 125 ML/MIN Rate (>89) Random Glucose 111 MG/DL (74-106) Calcium Level 8.4 MG/DL (8.5-10.1) Magnesium Level 2.0 MG/DL (1.5-2.5) Result Diagram: 01/17/1740901/17/17409 (1) Non-ST elevation myocardial infarction (NSTEMI) Plan: Stabilized on IV heparin/ ASA statin BB / nitro paste (2) Hypertension Plan: controlled (3) Hyperlipidemia (4) Multi-vessel coronary artery stenosis Plan: for surgery on Thursday (5) Antiplatelet or antithrombotic long-term use Plan: PRU 193 today (6) Pancreatic mass Plan: will have general surgery Ramonita Roberts MD Jan 17, 2017 09:15
[2017-01-17] MEDS: INSULIN ASPART SUPPLEMENTAL SCALE SQ SCH ×4 (10:00→22:02)
--- NOTE | 2017-01-17 14:11 | HHI.PR ---
Subjective Remarks The patient was resting comfortably in bed. He said he was awaiting transfer downstairs. He said he was breathing well. He endorsed mild abdominal pain. He has been tolerating a diet. He has been out of bed into a chair. Discussed with nursing. Objective Vitals Vital Signs Date Time Temp Pulse Resp B/P Pulse Ox O2 Delivery O2 Flow Rate FiO2 01/17/17 13:53 97.9 75 17 128/56 97 01/17/17 11:09 75 01/17/17 11:09 97.8 75 17 120/63 97 Arterial Line 01/17/17 10:22 98.3 74 16 120/63 97 118/70 01/17/17 08:04 74 01/17/17 07:28 98 Nasal Cannula 2.00 01/17/17 07:00 74 01/17/17 07:00 97.8 74 16 129/53 97 111/45 01/17/17 06:00 80 01/17/17 05:00 80 01/17/17 04:00 79 01/17/17 03:00 98.9 77 18 116/50 99 112/41 01/17/17 03:00 77 01/17/17 02:00 77 01/17/17 01:31 18 01/17/17 01:00 72 01/17/17 00:00 96 01/16/17 23:00 78 01/16/17 23:00 98.7 96 18 120/52 95 115/59 01/16/17 22:00 88 01/16/17 21:00 84 01/16/17 20:34 97 Nasal Cannula 3.00 01/16/17 20:00 90 01/16/17 19:00 87 01/16/17 19:00 98.1 87 18 126/56 97 106/43 01/16/17 18:10 97.8 01/16/17 18:00 73 01/16/17 17:00 85 01/16/17 16:27 96 Nasal Cannula 4.00 01/16/17 16:27 96 Nasal Cannula 4 01/16/17 16:00 96 01/16/17 15:33 96 40 01/16/17 15:00 96.7 94 19 160/73 97 131/56 01/16/17 15:00 97.0 01/16/17 15:00 94 01/16/17 14:20 40 I/O 01/16/17 01/16/17 01/16/17 01/17/17 01/17/17 01/17/17 07:00 15:00 23:00 07:00 15:00 23:00 Intake Total 372 ml 2753 ml 378 ml Output Total 1100 ml 540 ml 980 ml Balance -728 ml 2213 ml -602 ml Intake Oral 240 ml 0 ml 100 ml IV Total 132 ml 2753 ml 278 ml Output Urine Total 1100 ml 370 ml 750 ml Gastric Drainage Total 0 ml Chest Tube Drainage Total 170 ml 230 ml # Voids 2 # Bowel Movements 0 0 0 Result Diagram: 01/17/17 0410 01/17/17 0410 Imaging Last Impressions Chest X-Ray 01/17/17 0500 Signed Impressions: Service Date/Time: Tuesday, January 17, 2017 04:23 - CONCLUSION: 1. Left chest tube remains present and no pneumothorax is visualized. 2. Underinflation with mild bibasilar opacity representing atelectasis versus consolidation. Evens Liz MD Pancreas Ultrasound 01/13/17 0000 Signed Impressions: Service Date/Time: Friday, January 13, 2017 16:48 - CONCLUSION: 1. A cystic mass is confirmed within the expected region of the uncinate process of the pancreas measuring 3.1 x 2.4 x 2.9 cm sonographically and remains indeterminate. The main pancreatic duct is mildly dilated. 2. Mild hepatomegaly. Bandar Flores MD Chest CT 01/12/17 0000 Signed Impressions: Service Date/Time: Thursday, January 12, 2017 17:55 - CONCLUSION: 1. Coronary artery calcifications. 2. Infrarenal abdominal aortic aneurysm measuring 4.3 cm AP x 3.4 cm transverse dimension. 3. 2.6 x 2.3 cm cystic mass within the uncinate process of the pancreas. 4. 3.3 x 1.5 cm left adrenal nodule consistent with possible adrenal adenoma. 5. Minimal fibrotic scarring within the posterior lung bases bilaterally. 6. Degenerative changes and scoliosis of the thoracolumbar spine. Bandar Flores MD Objective Remarks GENERAL: Resting comfortably. SKIN: Warm and dry. HEAD: Normocephalic. EYES: No scleral icterus. No injection or drainage. NECK: Supple, trachea midline. No JVD or lymphadenopathy. CARDIOVASCULAR: Regular rate and rhythm. Grade 1 systolic murmur appreciated. RESPIRATORY: Breath sounds equal bilaterally. No accessory muscle use. No wheezing, rales or rhonchi. GASTROINTESTINAL: Abdomen soft, non-tender, nondistended. MUSCULOSKELETAL: No cyanosis, or edema. BACK: Nontender without obvious deformity. No CVA tenderness. PSYCH: Mood and affect appropriate. Procedures CABG 01/16 Medications and IVs Current Medications Medications (Trade) Dose Ordered Sig/Munira Route Start Time Stop Time Status Last Admin (Lopressor) 25 mg Q12HR PO 01/11/17 13:00 01/17/17 08:49 (Norvasc) 2.5 mg DAILY PO 01/12/17 09:00 01/15/17 08:58 (Xanax) 0.25 mg Q6H PRN PO 01/11/17 12:30 (Lipitor) 20 mg DAILY PO 01/12/17 09:00 01/17/17 08:48 (Zofran Inj) 4 mg Q6H PRN IVP 01/11/17 12:45 01/16/17 23:28 (Tylenol) 650 mg Q6H PRN PO 01/11/17 12:45 (Narcan Inj) 0.4 mg UNSCH PRN IV 01/11/17 12:45 (Pill Splitter) 1 ea UNSCH PRN OTHER 01/11/17 13:15 (Colace) 100 mg BID PO 01/15/17 21:00 01/17/17 08:49 (Aspirin Chew) 81 mg DAILY PO 01/17/17 09:00 01/17/17 08:49 (Plavix) 75 mg DAILY PO 01/17/17 09:00 01/17/17 08:48 (Protonix) 40 mg DAILY@06 PO 01/17/17 06:00 01/17/17 06:00 (Cordarone) 200 mg Q12HR PO 01/16/17 21:00 01/17/17 08:48 (Tylenol Supp) 650 mg Q4H PRN RECTAL 01/16/17 11:45 (Morphine Inj) 1 mg Q10M PRN IV 01/16/17 11:45 ([place] 5-325 Mg) 1 tab Q3H PRN PO 01/16/17 11:45 Acetaminophen/ Hydrocodone Bitart 2 tab 2 tab Q3H PRN PO 01/16/17 11:45 Potassium Chloride 100 ml @ 50 mls/hr UNSCH PRN IV 01/16/17 11:45 01/17/17 01:34 Potassium Chloride 100 ml @ 50 mls/hr UNSCH PRN IV 01/16/17 11:45 Potassium Chloride 100 ml @ 50 mls/hr UNSCH PRN IV 01/16/17 11:45 Magnesium Sulfate 2 gm/Sodium Chloride 104 ml @ 100 mls/hr UNSCH PRN IV 01/16/17 11:45 Magnesium Sulfate 2 gm/Sodium Chloride 104 ml @ 50 mls/hr UNSCH PRN IV 01/16/17 11:45 Calcium Chloride 1 gm/Sodium Chloride 110 ml @ 100 mls/hr UNSCH PRN IV 01/16/17 12:00 01/16/17 16:24 (Ancef 2 Gm Premix) 50 ml @ 100 mls/hr Q8H IV 01/16/17 16:00 01/18/17 00:29 01/17/17 08:48 (Theragran M Tab) 1 tab DAILY PO 01/18/17 09:00 (Milk Of Magnesia Liq) 30 ml DAILY PO 01/18/17 09:00 (Miralax) 17 gm DAILY PO 01/18/17 09:00 (Senokot) 8.6 mg HS PO 01/17/17 21:00 (Fleets Enema (Adult)) 133 ml UNSCH PRN RECTAL 01/17/17 09:15 (NovoLOG SUPPLEMENTAL SCALE) 1 02,06,10,14,18,22 SQ 01/17/17 10:00 (D50w (Vial) Inj) 25 ml UNSCH PRN IV 01/17/17 09:15 (Glucagon Inj) 1 mg UNSCH PRN OTHER 01/17/17 09:15 A/P Problem List: (1) Multi-vessel coronary artery stenosis ICD Code: I25.10 Status: Acute (2) Non-ST elevation myocardial infarction (NSTEMI) ICD Code: I21.4 Status: Acute (3) Hypertension ICD Code: I10 Status: Chronic (4) Chest pain ICD Code: R07.9 Status: Acute (5) Hyperlipidemia ICD Code: E78.5 Status: Chronic (6) History of CVA (cerebrovascular accident) ICD Code: Z86.73 Status: Chronic Assessment and Plan NSTEMI Recent diagnosis of multi vessel CAD October 2016 - Prox LAD, Prox LCx, Distal LCx, non-dominant RCA. Patient then refused bypass/intervention and now presents with non-ST elevation NE. Chest x-ray without any cardio pulmonary disease. Appreciate input from Cardiology and CT surgery. CT scan showed: Coronary artery calcifications; Infrarenal abdominal aortic aneurysm measuring 4.3 cm AP x 3.4 cm transverse dimension; 2.6 x 2.3 cm cystic mass within the uncinate process of the pancreas; 3.3 x 1.5 cm left adrenal nodule consistent with possible adrenal adenoma. Echo with normal EF. S/p CABG 01/16. - continue medication regimen and wound care per cardiology and cardiothoracic surgery. - telemetry. - incentive spirometry. - physical therapy. Pancreatic mass Noted on CT scan. Ultrasound showed: cystic mass is confirmed within the expected region of the uncinate process of the pancreas measuring 3.1 x 2.4 x 2.9 cm sonographically and remains indeterminate; the main pancreatic duct is mildly dilated. General surgery consult appreciated. - would recommend further work up with MRCP which may be obtained following surgery. Hypertension On pressors following surgery. Currently stable. - meds per CTS. Constipation The pt has not had a bowel movement in a few days. - Continue aggressive bowel regimen. - Suppository or enemas as needed. DVT prophylaxis: Per surgery. Discharge Planning Transfer to [facility]. Bk Jamison DO Jan 17, 2017 14:11
[2017-01-17] MEDS: SENNOSIDES 8.6 MG TAB PO SCH (16:08)
[2017-01-17] MEDS ORDERED: SENNOSIDES 8.6 MG TAB PO SCH (21:00)
[2017-01-18] VITALS (29 sets, daily range): BP systolic 128–152; BP diastolic 60–73; PULSE 74–97; RESP 18–20; TEMP 98.1–99.1; O2SAT 91–95
[2017-01-18] MEDS: ceFAZolin 2 GM PREMIX 50 ML IV SCH (00:19)
[2017-01-18] MEDS: INSULIN ASPART SUPPLEMENTAL SCALE SQ SCH ×5 (02:00→20:40)
[2017-01-18] MEDS: PANTOPRAZOLE SOD 40 MG DELAYED RELEASE TAB PO SCH (06:00)
[2017-01-18 07:36] LABS: AUTOMATED NEUTROPHIL # 11.7 TH/MM3 (1.8-7.7); BASOPHIL % 0.1 % (0.0-2.0); EOSINOPHIL % 0.1 % (0.0-4.0); HEMATOCRIT 34.9 % (39.0-51.0); HEMO FLAGS DIFF FINAL; LYMPH % 3.1 % (9.0-44.0); LYMPHOCYTE # 0.4 TH/MM3 (1.0-4.8); MEAN CELL VOLUME 89.9 FL (80.0-100.0); MEAN CORPUSCULAR HEMOGLOBIN 29.1 PG (27.0-34.0); MEAN CORPUSCULAR HGB CONC 32.4 % (32.0-36.0); MONO % 10.3 % (0.0-8.0); NEUT % 86.4 % (16.0-70.0); PLATELET COUNT 166 TH/MM3 (150-450); RED BLOOD COUNT 3.89 MIL/MM3 (4.50-5.90); RED CELL DISTRIBUTION WIDTH 13.1 % (11.6-17.2); WHITE BLOOD COUNT 13.5 TH/MM3 (4.0-11.0)
[2017-01-18] MEDS: RESP: ALBUTEROL 2.5 MG/IPRATROPIUM 0.5 MG NEB (SCH) NEB ×3 (07:52→20:27)
[2017-01-18 07:56] LABS: BICARBONATE 25.6 MEQ/L (21.0-32.0)
[2017-01-18] MEDS: DOCUSATE SODIUM 100 MG CAP PO SCH ×2 (08:46→20:39)
[2017-01-18] MEDS: ASPIRIN 81 MG CHEW TAB PO SCH (08:46)
[2017-01-18] MEDS: AMIODARONE 200 MG TAB PO SCH (08:46)
[2017-01-18] MEDS: MULTIVITAMINS/MINERALS THERAPEUTIC TAB PO SCH (08:46)
[2017-01-18] MEDS: CLOPIDOGREL 75 MG TAB PO SCH (08:46)
[2017-01-18] MEDS: ATORVASTATIN 20 MG TAB PO SCH (08:46)
[2017-01-18] MEDS: METOPROLOL TARTRATE 25 MG TAB PO SCH ×3 (08:47→20:40)
[2017-01-18] MEDS: amLODIPine BESYLATE 5 MG TAB PO SCH (08:47)
[2017-01-18] MEDS: MAGNESIUM HYDROXIDE SUSP 30 ML CUP PO SCH (08:47)
[2017-01-18] MEDS: POLYETHYLENE GLYCOL 17 GM PKG PO SCH (09:00)
--- NOTE | 2017-01-18 09:11 | PD.CAR.PN ---
CVT Progress Note Subjective/Hospital Course: 86/ male hx of CAD , seen by Dr Hilario in Oct heart cath for multi vessel disease/ decided against surgery at that time 11/20 caring for his who has dementia . 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, ( right CEA Oct 2013) hx of CVA, PVD, AAA PFT FEV1 1.7/ mild obstructive disease CT Chest 01/12 coronary artery calcifications infrarenal AAA 4.3cmx 3.4cm 2.6x2.3cm cystic mass in pancreas ( US of abd and pancreas pending ) 3.3x1.5 left adrenal nodule 01/[address] Hilario spoke with pt/ tentatively scheduled for surgery on Thursday, PRU pending on 01/15 also pending US abd and pancreas/ will meet with family and pt again tomorrow afternoon on heparin gtt 01/14 pt had episode of chest pain last pm US pancreas noted recommend general surgery eval prior to CABG still tentatively scheduled for surgery on monday 01/15 appreciate General surgery in put/ outpt f/u for pancreatic cyst with MRI on room air, no chest pain last pm for OR in am 01/16 1. Urgent Clampless Off-pump Coronary Artery Bypass Grafting x 3 with left internal mammary artery (JENKINS) to left anterior descending (LAD), sequential reverse saphenous vein graft to OM1 and distal Left Circumflex artery 2. Transmyocardial Laser Revascularization 3. Left Leg Endoscopic Vein [place] 4. Epiaortic Ultrasound 5. Intraoperative Vein Mapping. 01/17 Doing well. Extubated and tolerating Transfer CIC Maintain CT Ambulate 01/18 Doing well Ambulating Maintain CT to drainage Rehab eval Objective: Vital Signs Date Time Temp Pulse Resp B/P Pulse Ox O2 Delivery O2 Flow Rate FiO2 01/18/17 08:00 92 Nasal Cannula 1.00 01/18/17 07:01 97 01/18/17 06:00 88 01/18/17 05:00 88 01/18/17 04:00 92 01/18/17 03:24 98.2 85 152/73 91 01/18/17 03:00 90 01/18/17 02:41 Nasal Cannula 1.00 01/18/17 02:00 86 01/18/17 01:00 80 01/18/17 00:00 78 01/17/17 23:00 98.5 81 157/76 93 01/17/17 23:00 92 01/17/17 22:00 98 01/17/17 21:00 90 01/17/17 20:00 86 01/17/17 20:00 98.9 85 18 129/65 93 01/17/17 19:00 85 01/17/17 18:00 76 01/17/17 17:00 88 01/17/17 16:05 97.5 75 18 137/62 96 01/17/17 16:00 76 01/17/17 15:04 68 01/17/17 15:00 67 01/17/17 13:53 97.9 75 17 128/56 97 01/17/17 11:09 75 01/17/17 11:09 97.8 75 17 120/63 97 Arterial Line 01/17/17 10:22 98.3 74 16 120/63 97 118/70 Labs: Laboratory Tests Test 01/18/17 06:00 White Blood Count 13.5 TH/MM3 (4.0-11.0) Red Blood Count 3.89 MIL/MM3 (4.50-5.90) Hemoglobin 11.3 GM/DL (13.0-17.0) Hematocrit 34.9 % (39.0-51.0) Mean Corpuscular Volume 89.9 FL (80.0-100.0) Mean Corpuscular Hemoglobin 29.1 PG (27.0-34.0) Mean Corpuscular Hemoglobin 32.4 % Concent (32.0-36.0) Red Cell Distribution Width 13.1 % (11.6-17.2) Platelet Count 166 TH/MM3 (150-450) Mean Platelet Volume 10.7 FL (7.0-11.0) Neutrophils (%) (Auto) 86.4 % (16.0-70.0) Lymphocytes (%) (Auto) 3.1 % (9.0-44.0) Monocytes (%) (Auto) 10.3 % (0.0-8.0) Eosinophils (%) (Auto) 0.1 % (0.0-4.0) Basophils (%) (Auto) 0.1 % (0.0-2.0) Neutrophils # (Auto) 11.7 TH/MM3 (1.8-7.7) Lymphocytes # (Auto) 0.4 TH/MM3 (1.0-4.8) Monocytes # (Auto) 1.4 TH/MM3 (0-0.9) Eosinophils # (Auto) 0.0 TH/MM3 (0-0.4) Basophils # (Auto) 0.0 TH/MM3 (0-0.2) CBC Comment DIFF FINAL Differential Comment Sodium Level 137 MEQ/L (136-145) Potassium Level 4.0 MEQ/L (3.5-5.1) Chloride Level 103 MEQ/L (98-107) Carbon Dioxide Level 25.6 MEQ/L (21.0-32.0) Anion Gap 8 MEQ/L (5-15) Blood Urea Nitrogen 15 MG/DL (7-18) Creatinine 0.82 MG/DL (0.60-1.30) Estimat Glomerular Filtration 89 ML/MIN (>89) Rate Random Glucose 94 MG/DL (74-106) Calcium Level 8.4 MG/DL (8.5-10.1) Magnesium Level 2.0 MG/DL (1.5-2.5) Result Diagram: 01/18/17 0600 01/18/17 0600 (1) Non-ST elevation myocardial infarction (NSTEMI) Plan: Stabilized on IV heparin/ ASA statin BB / nitro paste (2) Hypertension Plan: controlled (3) Hyperlipidemia (4) Multi-vessel coronary artery stenosis Plan: for surgery on Thursday (5) Antiplatelet or antithrombotic long-term use Plan: PRU 193 today (6) Pancreatic mass Plan: will have general surgery Ramonita Roberts MD Jan 18, 2017 09:11
[2017-01-18] MEDS: SENNOSIDES 8.6 MG TAB PO SCH (11:10)
[2017-01-18] MEDS ORDERED: BISACODYL 10 MG SUPP RECTAL ONE (13:15)
--- NOTE | 2017-01-18 13:21 | HHI.PR ---
Subjective Remarks The patient said he did not have much of an appetite. He said his hands were shaking and he was having a hard time eating. He said he can't sleep more than half an hour at a time because when he shuts his eyes he sees weird things. He still has not had a bowel movement. Family at the bedside. Their questions were answered. Objective Vitals Vital Signs Date Time Temp Pulse Resp B/P Pulse Ox O2 Delivery O2 Flow Rate FiO2 01/18/17 08:30 98.2 87 20 142/73 93 01/18/17 08:00 92 Nasal Cannula 1.00 01/18/17 07:01 97 01/18/17 06:00 88 01/18/17 05:00 88 01/18/17 04:00 92 01/18/17 03:24 98.2 85 152/73 91 01/18/17 03:00 90 01/18/17 02:41 Nasal Cannula 1.00 01/18/17 02:00 86 01/18/17 01:00 80 01/18/17 00:00 78 01/17/17 23:00 98.5 81 157/76 93 01/17/17 23:00 92 01/17/17 22:00 98 01/17/17 21:00 90 01/17/17 20:00 86 01/17/17 20:00 98.9 85 18 129/65 93 01/17/17 19:00 85 01/17/17 18:00 76 01/17/17 17:00 88 01/17/17 16:05 97.5 75 18 137/62 96 01/17/17 16:00 76 01/17/17 15:04 68 01/17/17 15:00 67 01/17/17 13:53 97.9 75 17 128/56 97 I/O 01/17/17 01/17/17 01/17/17 01/18/17 01/18/17 01/18/17 07:00 15:00 23:00 07:00 15:00 23:00 Intake Total 378 ml 600 ml 530 ml 720 ml Output Total 980 ml 260 ml 400 ml 445 ml Balance -602 ml 340 ml 130 ml 275 ml Intake Oral 100 ml 250 ml 480 ml 720 ml IV Total 278 ml 350 ml 50 ml Output Urine Total 750 ml 150 ml 200 ml 225 ml Chest Tube Drainage Total 230 ml 110 ml 200 ml 220 ml # Voids 2 # Bowel Movements 0 0 0 Result Diagram: 01/18/17 0600 01/18/17 0600 Imaging Last Impressions Chest X-Ray 01/17/17 0500 Signed Impressions: Service Date/Time: Tuesday, January 17, 2017 04:23 - CONCLUSION: 1. Left chest tube remains present and no pneumothorax is visualized. 2. Underinflation with mild bibasilar opacity representing atelectasis versus consolidation. Evens Liz MD Pancreas Ultrasound 01/13/17 0000 Signed Impressions: Service Date/Time: Friday, January 13, 2017 16:48 - CONCLUSION: 1. A cystic mass is confirmed within the expected region of the uncinate process of the pancreas measuring 3.1 x 2.4 x 2.9 cm sonographically and remains indeterminate. The main pancreatic duct is mildly dilated. 2. Mild hepatomegaly. Bandar Flores MD Chest CT 01/12/17 0000 Signed Impressions: Service Date/Time: Thursday, January 12, 2017 17:55 - CONCLUSION: 1. Coronary artery calcifications. 2. Infrarenal abdominal aortic aneurysm measuring 4.3 cm AP x 3.4 cm transverse dimension. 3. 2.6 x 2.3 cm cystic mass within the uncinate process of the pancreas. 4. 3.3 x 1.5 cm left adrenal nodule consistent with possible adrenal adenoma. 5. Minimal fibrotic scarring within the posterior lung bases bilaterally. 6. Degenerative changes and scoliosis of the thoracolumbar spine. Bandar Flores MD Objective Remarks GENERAL: Resting comfortably. SKIN: Warm and dry. HEAD: Normocephalic. EYES: No scleral icterus. No injection or drainage. NECK: Supple, trachea midline. No JVD or lymphadenopathy. CARDIOVASCULAR: Regular rate and rhythm. Grade 1 systolic murmur appreciated. RESPIRATORY: Breath sounds equal bilaterally. No accessory muscle use. No wheezing, rales or rhonchi. GASTROINTESTINAL: Abdomen soft, non-tender, nondistended. MUSCULOSKELETAL: No cyanosis, or edema. BACK: Nontender without obvious deformity. No CVA tenderness. PSYCH: Anxious. Procedures CABG 01/16 Medications and IVs Current Medications Medications (Trade) Dose Ordered Sig/Munira Route Start Time Stop Time Status Last Admin (Norvasc) 2.5 mg DAILY PO 01/12/17 09:00 01/18/17 08:47 (Xanax) 0.25 mg Q6H PRN PO 01/11/17 12:30 (Lipitor) 20 mg DAILY PO 01/12/17 09:00 01/18/17 08:46 (Zofran Inj) 4 mg Q6H PRN IVP 01/11/17 12:45 01/16/17 23:28 (Tylenol) 650 mg Q6H PRN PO 01/11/17 12:45 (Narcan Inj) 0.4 mg UNSCH PRN IV 01/11/17 12:45 (Pill Splitter) 1 ea UNSCH PRN OTHER 01/11/17 13:15 (Colace) 100 mg BID PO 01/15/17 21:00 01/18/17 08:46 (Aspirin Chew) 81 mg DAILY PO 01/17/17 09:00 01/18/17 08:46 (Plavix) 75 mg DAILY PO 01/17/17 09:00 01/18/17 08:46 (Protonix) 40 mg DAILY@06 PO 01/17/17 06:00 01/18/17 06:00 (Tylenol Supp) 650 mg Q4H PRN RECTAL 01/16/17 11:45 (Morphine Inj) 1 mg Q10M PRN IV 01/16/17 11:45 ([place] 5-325 Mg) 1 tab Q3H PRN PO 01/16/17 11:45 Acetaminophen/ Hydrocodone Bitart 2 tab 2 tab Q3H PRN PO 01/16/17 11:45 Potassium Chloride 100 ml @ 50 mls/hr UNSCH PRN IV 01/16/17 11:45 01/17/17 01:34 Potassium Chloride 100 ml @ 50 mls/hr UNSCH PRN IV 01/16/17 11:45 Potassium Chloride 100 ml @ 50 mls/hr UNSCH PRN IV 01/16/17 11:45 Magnesium Sulfate 2 gm/Sodium Chloride 104 ml @ 100 mls/hr UNSCH PRN IV 01/16/17 11:45 Magnesium Sulfate 2 gm/Sodium Chloride 104 ml @ 50 mls/hr UNSCH PRN IV 01/16/17 11:45 (Calcium Chloride Inj/NS Inj) 110 ml @ 100 mls/hr UNSCH PRN IV 01/16/17 12:00 01/16/17 16:24 (Theragran M Tab) 1 tab DAILY PO 01/18/17 09:00 01/18/17 08:46 (Milk Of Magnesia Liq) 30 ml DAILY PO 01/18/17 09:00 01/18/17 08:47 (Miralax) 17 gm DAILY PO 01/18/17 09:00 (Fleets Enema (Adult)) 133 ml UNSCH PRN RECTAL 01/17/17 09:15 (NovoLOG SUPPLEMENTAL SCALE) 1 02,06,10,14,18,22 SQ 01/17/17 10:00 01/18/17 11:10 (D50w (Vial) Inj) 25 ml UNSCH PRN IV 01/17/17 09:15 (Glucagon Inj) 1 mg UNSCH PRN OTHER 01/17/17 09:15 (Senokot) 17.2 mg DAILY PO 01/17/17 14:07 01/18/17 11:10 (Lopressor) 25 mg Q8HR PO 01/18/17 14:00 (Dulcolax Supp) 10 mg ONCE ONCE RECTAL 01/18/17 13:15 01/18/17 13:16 A/P Problem List: (1) Multi-vessel coronary artery stenosis ICD Code: I25.10 Status: Acute (2) Non-ST elevation myocardial infarction (NSTEMI) ICD Code: I21.4 Status: Acute (3) Hypertension ICD Code: I10 Status: Chronic (4) Chest pain ICD Code: R07.9 Status: Acute (5) Hyperlipidemia ICD Code: E78.5 Status: Chronic (6) History of CVA (cerebrovascular accident) ICD Code: Z86.73 Status: Chronic Assessment and Plan NSTEMI Recent diagnosis of multi vessel CAD October 2016 - Prox LAD, Prox LCx, Distal LCx, non-dominant RCA. Patient then refused bypass/intervention and now presents with non-ST elevation DC. Chest x-ray without any cardio pulmonary disease. Appreciate input from Cardiology and CT surgery. CT scan showed: Coronary artery calcifications; Infrarenal abdominal aortic aneurysm measuring 4.3 cm AP x 3.4 cm transverse dimension; 2.6 x 2.3 cm cystic mass within the uncinate process of the pancreas; 3.3 x 1.5 cm left adrenal nodule consistent with possible adrenal adenoma. Echo with normal EF. S/p CABG 3/31. - continue medication regimen and wound care per cardiology and cardiothoracic surgery. - telemetry. - incentive spirometry. - physical therapy. - continue chest tube per CTS. Pancreatic mass Noted on CT scan. Ultrasound showed: cystic mass is confirmed within the expected region of the uncinate process of the pancreas measuring 3.1 x 2.4 x 2.9 cm sonographically and remains indeterminate; the main pancreatic duct is mildly dilated. General surgery consult appreciated. - would recommend further work up with MRCP which may be obtained following surgery. Hypertension On pressors following surgery. Currently stable. - meds per CTS/ cardiology. Amiodarone has been d/c and Lopressor has been increased. Constipation The pt has not had a bowel movement in a few days. - Continue aggressive bowel regimen. - Suppository ordered 01/18. Delirium The pt sees strange things when he closes his eyes. He feels shaky and has a poor appetite. He also has a leukocytosis. He is constipated. - CXR, UA requested. - bowel regimen. - avoid sedating meds. - frequent orientation. DVT prophylaxis: Per surgery. Discharge Planning Per CTS. Bk Jamison DO Jan 18, 2017 13:21
--- NOTE | 2017-01-18 14:10 | RADRPT ---
EXAM DATE/TIME: 01/18/2017 13:44 [facility] COMPARISON: CHEST SINGLE AP, January 17, 2017, 4:23. INDICATIONS : Short of breath. MEDICAL HISTORY : Hypertension. Cardiovascular disease. SURGICAL HISTORY : CABG. ENCOUNTER: Subsequent ACUITY: 3 days PAIN SCORE: 0/10 LOCATION: Bilateral chest FINDINGS: Left chest tube, mediastinal drain and introducing sheath are in good position. Sternal wires from p revious median sternotomy are noted. The lungs are clear. Heart and pulmonary vascularity are normal. CONCLUSION: Satisfactory appearance to the chest. Yogesh Ponce MD FACR on January 18, 2017 at 14:07 Board Certified Radiologist. This report was verified electronically.
[2017-01-18 19:28] LABS: BLOOD, URINE MOD (NEG); COMMENT (UR) CULTURE INDICATED; CULTURE IF INDICATED CULTURE INDICATED; GLUCOSE,URINE NEG (NEG); KETONE, URINE 10 mg/dL (NEG); MUCUS URINE FEW /lpf (OCC); NITRITE,URINE NEG (NEG); SQUAMOUS EPITHELIAL CELL URINE <1 /hpf (0-5); URINE COLOR YELLOW (YELLW/STRAW)
--- NOTE | 2017-01-18 21:10 | EKG ---
Date Performed: 01/17/2017 Time Performed: 04:45:32 PTAGE: 86 years EKG: Sinus rhythm . Anteroseptal T wave changes are nonspecific Borderline ECG NO PREVIOUS TRACING DOCTOR: Henrietta Marquez Interpretating Date/Time 01/18/2017 21:08:42
[2017-01-19] VITALS (28 sets, daily range): BP systolic 103–158; BP diastolic 46–69; PULSE 69–102; RESP 16–18; TEMP 98–98.9; O2SAT 91–98
[2017-01-19] MEDS ORDERED: TAMSULOSIN HCL 0.4 MG CAP PO ONE (00:45)
[2017-01-19] MEDS: PANTOPRAZOLE SOD 40 MG DELAYED RELEASE TAB PO SCH (05:21)
[2017-01-19] MEDS: METOPROLOL TARTRATE 25 MG TAB PO SCH ×2 (05:22→21:18)
[2017-01-19] MEDS: INSULIN ASPART SUPPLEMENTAL SCALE SQ SCH ×3 (06:21→21:00)
[2017-01-19 06:22] LABS: AUTOMATED NEUTROPHIL # 9.8 TH/MM3 (1.8-7.7); BASOPHIL % 0.1 % (0.0-2.0); EOSINOPHIL % 0.2 % (0.0-4.0); HEMATOCRIT 31.7 % (39.0-51.0); HEMO FLAGS DIFF FINAL; LYMPH % 4.4 % (9.0-44.0); LYMPHOCYTE # 0.5 TH/MM3 (1.0-4.8); MEAN CELL VOLUME 88.8 FL (80.0-100.0); MEAN CORPUSCULAR HEMOGLOBIN 29.9 PG (27.0-34.0); MEAN CORPUSCULAR HGB CONC 33.7 % (32.0-36.0); MONO % 9.4 % (0.0-8.0); NEUT % 85.9 % (16.0-70.0); PLATELET COUNT 170 TH/MM3 (150-450); RED BLOOD COUNT 3.57 MIL/MM3 (4.50-5.90); RED CELL DISTRIBUTION WIDTH 13.2 % (11.6-17.2); WHITE BLOOD COUNT 11.4 TH/MM3 (4.0-11.0)
[2017-01-19] MEDS: RESP: ALBUTEROL 2.5 MG/IPRATROPIUM 0.5 MG NEB (SCH) NEB (08:18)
[2017-01-19] MEDS: ATORVASTATIN 20 MG TAB PO SCH (08:39)
[2017-01-19] MEDS: CLOPIDOGREL 75 MG TAB PO SCH (08:40)
[2017-01-19] MEDS: MULTIVITAMINS/MINERALS THERAPEUTIC TAB PO SCH (08:40)
[2017-01-19] MEDS: ASPIRIN 81 MG CHEW TAB PO SCH (08:40)
[2017-01-19] MEDS: MAGNESIUM HYDROXIDE SUSP 30 ML CUP PO SCH (08:40)
[2017-01-19] MEDS: SENNOSIDES 8.6 MG TAB PO SCH (08:40)
[2017-01-19] MEDS: DOCUSATE SODIUM 100 MG CAP PO SCH ×2 (08:40→21:17)
[2017-01-19] MEDS: amLODIPine BESYLATE 5 MG TAB PO SCH (08:42)
[2017-01-19] MEDS: POLYETHYLENE GLYCOL 17 GM PKG PO SCH (09:00)
--- NOTE | 2017-01-19 10:58 | PD.CAR.PN ---
CVT Progress Note Subjective/Hospital Course: 86/ male hx of CAD , seen by Dr Hilario in Oct heart cath for multi vessel disease/ decided against surgery at that time 2 caring for his who has dementia . 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, ( right CEA Oct 2013) hx of CVA, PVD, AAA PFT FEV1 1.7/ mild obstructive disease CT Chest 01/12 coronary artery calcifications infrarenal AAA 4.3cmx 3.4cm 2.6x2.3cm cystic mass in pancreas ( US of abd and pancreas pending ) 3.3x1.5 left adrenal nodule 01/[address] Hilario spoke with pt/ tentatively scheduled for surgery on Thursday, PRU pending on 01/15 also pending US abd and pancreas/ will meet with family and pt again tomorrow afternoon on heparin gtt 01/14 pt had episode of chest pain last pm US pancreas noted recommend general surgery eval prior to CABG still tentatively scheduled for surgery on monday 01/15 appreciate General surgery in put/ outpt f/u for pancreatic cyst with MRI on room air, no chest pain last pm for OR in am 01/16 1. Urgent Clampless Off-pump Coronary Artery Bypass Grafting x 3 with left internal mammary artery (JENKINS) to left anterior descending (LAD), sequential reverse saphenous vein graft to OM1 and distal Left Circumflex artery 2. Transmyocardial Laser Revascularization 3. Left Leg Endoscopic Vein [place] 4. Epiaortic Ultrasound 5. Intraoperative Vein Mapping. 01/17 Doing well. Extubated and tolerating Transfer CIC Maintain CT Ambulate 01/18 Doing well Ambulating Maintain CT to drainage Rehab eval 01/19 Doing well Re-evaluate later today for possible CT removal versus tomorrow Ambulate Discharge planning Objective: Vital Signs Date Time Temp Pulse Resp B/P Pulse Ox O2 Delivery O2 Flow Rate FiO2 01/19/17 10:01 102 01/19/17 09:00 102 01/19/17 08:15 98.0 97 18 103/46 93 01/19/17 08:00 80 01/19/17 07:00 76 01/19/17 06:00 84 01/19/17 05:00 92 01/19/17 04:00 84 01/19/17 03:00 91 01/19/17 03:00 98.6 100 158/69 91 01/19/17 02:00 84 01/19/17 01:00 86 01/19/17 00:00 76 01/18/17 23:00 82 01/18/17 23:00 98.4 78 149/65 94 01/18/17 22:00 82 01/18/17 21:00 80 01/18/17 20:28 93 21 01/18/17 20:00 86 01/18/17 19:00 99.1 82 128/65 93 01/18/17 19:00 97 01/18/17 18:01 86 01/18/17 17:01 83 01/18/17 16:01 88 01/18/17 15:15 98.1 94 18 129/60 95 01/18/17 15:00 94 01/18/17 14:01 85 01/18/17 13:00 88 01/18/17 12:00 82 01/18/17 11:30 98.1 80 20 128/67 92 01/18/17 11:00 76 Labs: Laboratory Tests Test 01/19/17 06:00 White Blood Count 11.4 TH/MM3 (4.0-11.0) Red Blood Count 3.57 MIL/MM3 (4.50-5.90) Hemoglobin 10.7 GM/DL (13.0-17.0) Hematocrit 31.7 % (39.0-51.0) Mean Corpuscular Volume 88.8 FL (80.0-100.0) Mean Corpuscular Hemoglobin 29.9 PG (27.0-34.0) Mean Corpuscular Hemoglobin 33.7 % Concent (32.0-36.0) Red Cell Distribution Width 13.2 % (11.6-17.2) Platelet Count 170 TH/MM3 (150-450) Mean Platelet Volume 10.4 FL (7.0-11.0) Neutrophils (%) (Auto) 85.9 % (16.0-70.0) Lymphocytes (%) (Auto) 4.4 % (9.0-44.0) Monocytes (%) (Auto) 9.4 % (0.0-8.0) Eosinophils (%) (Auto) 0.2 % (0.0-4.0) Basophils (%) (Auto) 0.1 % (0.0-2.0) Neutrophils # (Auto) 9.8 TH/MM3 (1.8-7.7) Lymphocytes # (Auto) 0.5 TH/MM3 (1.0-4.8) Monocytes # (Auto) 1.1 TH/MM3 (0-0.9) Eosinophils # (Auto) 0.0 TH/MM3 (0-0.4) Basophils # (Auto) 0.0 TH/MM3 (0-0.2) CBC Comment DIFF FINAL Differential Comment Result Diagram: 01/19/17 0600 01/18/17 0600 (1) Non-ST elevation myocardial infarction (NSTEMI) Plan: Stabilized on IV heparin/ ASA statin BB / nitro paste (2) Hypertension Plan: controlled (3) Hyperlipidemia (4) Multi-vessel coronary artery stenosis Plan: for surgery on Thursday (5) Antiplatelet or antithrombotic long-term use Plan: PRU 193 today (6) Pancreatic mass Plan: will have general surgery Ramonita Roberts MD Jan 19, 2017 10:58
--- NOTE | 2017-01-19 15:32 | HHI.PR ---
Subjective Remarks The pt said he was sitting in his chair earlier and was unable to control a bowel movement. He said his pain was a 5 out of 10. He said he was still a little confused and still having problems with tremors. Objective Vitals Vital Signs Date Time Temp Pulse Resp B/P Pulse Ox O2 Delivery O2 Flow Rate FiO2 01/19/17 13:01 75 01/19/17 12:01 88 01/19/17 11:01 98.2 93 18 110/46 94 01/19/17 11:00 90 01/19/17 10:01 102 01/19/17 09:00 102 01/19/17 08:15 98.0 97 18 103/46 93 01/19/17 08:00 80 01/19/17 07:00 76 01/19/17 06:00 84 01/19/17 05:00 92 01/19/17 04:00 84 01/19/17 03:00 91 01/19/17 03:00 98.6 100 158/69 91 01/19/17 02:00 84 01/19/17 01:00 86 01/19/17 00:00 76 01/18/17 23:00 82 01/18/17 23:00 98.4 78 149/65 94 01/18/17 22:00 82 01/18/17 21:00 80 01/18/17 20:28 93 21 01/18/17 20:00 86 01/18/17 19:00 99.1 82 128/65 93 01/18/17 19:00 97 01/18/17 18:01 86 01/18/17 17:01 83 01/18/17 16:01 88 I/O 01/18/17 01/18/17 01/18/17 01/19/17 01/19/17 01/19/17 07:00 15:00 23:00 07:00 15:00 23:00 Intake Total 720 ml 720 ml 480 ml Output Total 445 ml 275 ml 2880 ml Balance 275 ml 445 ml -2400 ml Intake Oral 720 ml 720 ml 480 ml Output Urine Total 225 ml 75 ml 2710 ml Stool Total 50 ml Chest Tube Drainage Total 220 ml 150 ml 170 ml Bladder Scan Volume Amount 999 ml 999 ml # Voids 2 4 # Bowel Movements 0 1 Result Diagram: 01/19/17 0601/18/17 0600 Imaging Last Impressions Chest X-Ray 01/17/17 0500 Signed Impressions: Service Date/Time: Tuesday, January 17, 2017 04:23 - CONCLUSION: 1. Left chest tube remains present and no pneumothorax is visualized. 2. Underinflation with mild bibasilar opacity representing atelectasis versus consolidation. Evens Liz MD Pancreas Ultrasound 01/13/17 0000 Signed Impressions: Service Date/Time: Friday, January 13, 2017 16:48 - CONCLUSION: 1. A cystic mass is confirmed within the expected region of the uncinate process of the pancreas measuring 3.1 x 2.4 x 2.9 cm sonographically and remains indeterminate. The main pancreatic duct is mildly dilated. 2. Mild hepatomegaly. Bandar Flores MD Chest CT 01/12/17 0000 Signed Impressions: Service Date/Time: Thursday, January 12, 2017 17:55 - CONCLUSION: 1. Coronary artery calcifications. 2. Infrarenal abdominal aortic aneurysm measuring 4.3 cm AP x 3.4 cm transverse dimension. 3. 2.6 x 2.3 cm cystic mass within the uncinate process of the pancreas. 4. 3.3 x 1.5 cm left adrenal nodule consistent with possible adrenal adenoma. 5. Minimal fibrotic scarring within the posterior lung bases bilaterally. 6. Degenerative changes and scoliosis of the thoracolumbar spine. Bandar Flores MD Objective Remarks GENERAL: Resting comfortably. SKIN: Warm and dry. HEAD: Normocephalic. EYES: No scleral icterus. No injection or drainage. NECK: Supple, trachea midline. No JVD or lymphadenopathy. CARDIOVASCULAR: Regular rate and rhythm. Grade 1 systolic murmur appreciated. RESPIRATORY: Breath sounds equal bilaterally. No accessory muscle use. No wheezing, rales or rhonchi. GASTROINTESTINAL: Abdomen soft, non-tender, nondistended. MUSCULOSKELETAL: No cyanosis, or edema. BACK: Nontender without obvious deformity. No CVA tenderness. PSYCH: Calm. Procedures CABG 01/16 Medications and IVs Current Medications Medications (Trade) Dose Ordered Sig/Munira Route Start Time Stop Time Status Last Admin (Norvasc) 2.5 mg DAILY PO 01/12/17 09:00 01/18/17 08:47 (Xanax) 0.25 mg Q6H PRN PO 01/11/17 12:30 (Lipitor) 20 mg DAILY PO 01/12/17 09:00 01/19/17 08:39 (Zofran Inj) 4 mg Q6H PRN IVP 01/11/17 12:45 01/16/17 23:28 (Tylenol) 650 mg Q6H PRN PO 01/11/17 12:45 (Narcan Inj) 0.4 mg UNSCH PRN IV 01/11/17 12:45 (Pill Splitter) 1 ea UNSCH PRN OTHER 01/11/17 13:15 (Colace) 100 mg BID PO 01/15/17 21:00 01/19/17 08:40 (Aspirin Chew) 81 mg DAILY PO 01/17/17 09:00 01/19/17 08:40 (Plavix) 75 mg DAILY PO 01/17/17 09:00 01/19/17 08:40 (Protonix) 40 mg DAILY@06 PO 01/17/17 06:00 01/19/17 05:21 (Tylenol Supp) 650 mg Q4H PRN RECTAL 01/16/17 11:45 (Morphine Inj) 1 mg Q10M PRN IV 01/16/17 11:45 ([place] 5-325 Mg) 1 tab Q3H PRN PO 01/16/17 11:45 Acetaminophen/ Hydrocodone Bitart 2 tab 2 tab Q3H PRN PO 01/16/17 11:45 Potassium Chloride 100 ml @ 50 mls/hr UNSCH PRN IV 01/16/17 11:45 01/17/17 01:34 Potassium Chloride 100 ml @ 50 mls/hr UNSCH PRN IV 01/16/17 11:45 Potassium Chloride 100 ml @ 50 mls/hr UNSCH PRN IV 01/16/17 11:45 Magnesium Sulfate 2 gm/Sodium Chloride 104 ml @ 100 mls/hr UNSCH PRN IV 01/16/17 11:45 Magnesium Sulfate 2 gm/Sodium Chloride 104 ml @ 50 mls/hr UNSCH PRN IV 01/16/17 11:45 (Calcium Chloride Inj/NS Inj) 110 ml @ 100 mls/hr UNSCH PRN IV 01/16/17 12:00 01/16/17 16:24 (Theragran M Tab) 1 tab DAILY PO 01/18/17 09:00 01/19/17 08:40 (Milk Of Magnesia Liq) 30 ml DAILY PO 01/18/17 09:00 01/19/17 08:40 (Miralax) 17 gm DAILY PO 01/18/17 09:00 (Fleets Enema (Adult)) 133 ml UNSCH PRN RECTAL 01/17/17 09:15 (D50w (Vial) Inj) 25 ml UNSCH PRN IV 01/17/17 09:15 (Glucagon Inj) 1 mg UNSCH PRN OTHER 01/17/17 09:15 (Senokot) 17.2 mg DAILY PO 01/17/17 14:07 01/19/17 08:40 (Lopressor) 25 mg Q8HR PO 01/18/17 14:00 01/19/17 05:22 Insulin Aspart 1 1 ACHS SQ 01/18/17 21:00 01/19/17 11:00 (Rocephin Inj/NS Inj) 100 ml @ 200 mls/hr Q24H IV 01/19/17 15:00 A/P Problem List: (1) Multi-vessel coronary artery stenosis ICD Code: I25.10 Status: Acute (2) Non-ST elevation myocardial infarction (NSTEMI) ICD Code: I21.4 Status: Acute (3) Hypertension ICD Code: I10 Status: Chronic (4) Chest pain ICD Code: R07.9 Status: Acute (5) Hyperlipidemia ICD Code: E78.5 Status: Chronic (6) History of CVA (cerebrovascular accident) ICD Code: Z86.73 Status: Chronic Assessment and Plan NSTEMI Recent diagnosis of multi vessel CAD October 2016 - Prox LAD, Prox LCx, Distal LCx, non-dominant RCA. Patient then refused bypass/intervention and now presents with non-ST elevation IN. Chest x-ray without any cardio pulmonary disease. Appreciate input from Cardiology and CT surgery. CT scan showed: Coronary artery calcifications; Infrarenal abdominal aortic aneurysm measuring 4.3 cm AP x 3.4 cm transverse dimension; 2.6 x 2.3 cm cystic mass within the uncinate process of the pancreas; 3.3 x 1.5 cm left adrenal nodule consistent with possible adrenal adenoma. Echo with normal EF. S/p CABG 01/16. - continue medication regimen and wound care per cardiology and cardiothoracic surgery. - telemetry. - incentive spirometry. - physical therapy. - continue chest tube per CTS. Possibly d/c later today or tomorrow. Pancreatic mass Noted on CT scan. Ultrasound showed: cystic mass is confirmed within the expected region of the uncinate process of the pancreas measuring 3.1 x 2.4 x 2.9 cm sonographically and remains indeterminate; the main pancreatic duct is mildly dilated. General surgery consult appreciated. - would recommend further work up with MRCP which may be obtained following surgery. Hypertension On pressors following surgery. Currently stable. - meds per CTS/ cardiology. Amiodarone has been d/c and Lopressor has been increased. Constipation The pt has not had a bowel movement in a few days. - Continue aggressive bowel regimen. - Suppository ordered 01/18. Resolved. Delirium The pt sees strange things when he closes his eyes. He feels shaky and has a poor appetite. He also has a leukocytosis. He is constipated. May be s/t UTI. - CXR, UA requested. - bowel regimen. - avoid sedating meds. - frequent orientation. - antibiotics. UTI UA suggestive of infection. - ceftriaxone started. - follow urine culture. - maintain Robbins for retention. DVT prophylaxis: Per surgery. Discharge Planning Per CTS. Bk Jamison DO Jan 19, 2017 15:32
[2017-01-19] MEDS: cefTRIAXone INJ 1,000 MG in SODIUM CHLORIDE 0.9% INJ 100 ML IV SCH (18:31)
[2017-01-20] VITALS (26 sets, daily range): BP systolic 112–135; BP diastolic 52–63; PULSE 63–95; RESP 17–20; TEMP 97.5–99; O2SAT 93–97
[2017-01-20] MEDS: PANTOPRAZOLE SOD 40 MG DELAYED RELEASE TAB PO SCH (05:23)
[2017-01-20] MEDS: METOPROLOL TARTRATE 25 MG TAB PO SCH ×3 (05:23→20:56)
[2017-01-20] MEDS: INSULIN ASPART SUPPLEMENTAL SCALE SQ SCH ×4 (05:26→21:20)
[2017-01-20 06:20] LABS: HEMATOCRIT 30.8 % (39.0-51.0); MEAN CELL VOLUME 88.8 FL (80.0-100.0); MEAN CORPUSCULAR HEMOGLOBIN 29.6 PG (27.0-34.0); MEAN CORPUSCULAR HGB CONC 33.3 % (32.0-36.0); PLATELET COUNT 166 TH/MM3 (150-450); RED BLOOD COUNT 3.47 MIL/MM3 (4.50-5.90); RED CELL DISTRIBUTION WIDTH 13.4 % (11.6-17.2); REVIEW FLAG FINAL; WHITE BLOOD COUNT 8.5 TH/MM3 (4.0-11.0)
[2017-01-20] MEDS: MAGNESIUM HYDROXIDE SUSP 30 ML CUP PO SCH (09:00)
[2017-01-20] MEDS: MULTIVITAMINS/MINERALS THERAPEUTIC TAB PO SCH (09:03)
[2017-01-20] MEDS: DOCUSATE SODIUM 100 MG CAP PO SCH ×2 (09:03→20:55)
[2017-01-20] MEDS: ASPIRIN 81 MG CHEW TAB PO SCH (09:03)
[2017-01-20] MEDS: ATORVASTATIN 20 MG TAB PO SCH (09:04)
[2017-01-20] MEDS: CLOPIDOGREL 75 MG TAB PO SCH (09:04)
[2017-01-20] MEDS: amLODIPine BESYLATE 5 MG TAB PO SCH (09:04)
--- NOTE | 2017-01-20 09:50 | PD.CONS ---
[facility] Service Urology Consult Requested By Primary Care Physician Zacarias Michael Do, MD Diagnosis: (1) Multi-vessel coronary artery stenosis ICD Code: I25.10 (2) Non-ST elevation myocardial infarction (NSTEMI) ICD Code: I21.4 (3) Hypertension ICD Code: I10 (4) Chest pain ICD Code: R07.9 (5) Hyperlipidemia ICD Code: E78.5 (6) History of CVA (cerebrovascular accident) ICD Code: Z86.73 History of Present Illness This is a pleasant 86-year-old male who underwent recent CABG 3. Postoperatively, patient was noted to be in urinary retention. Over 1 L of urine was drained after Robbins catheter placement. He started to develop gross hematuria after bladder decompression which is not common. He denies any prior history of gross hematuria. He does note a history of nocturia 2 with a moderate stream. He denies any history of stones or urinary tract infections. He denies any postvoid dribbling. He denies incomplete emptying. Review of Systems Constitutional: DENIES: Diaphoretic episodes Endocrine: DENIES: Heat/cold intolerance Gastrointestinal: DENIES: Abdominal pain Genitourinary: COMPLAINS OF: Nocturia (x2), DENIES: Hematuria, Dysuria Hematologic/lymphatic: DENIES: Bruising Immunologic/allergic: DENIES: Eczema Neurologic: DENIES: Abnormal gait Psychiatric: DENIES: Anxiety Past Family Social History Past Medical History Hypertension Coronary artery disease Hyperlipidemia Carotid disease AAA Peripheral vascular disease Past Surgical History CABG 3 Appendectomy Right carotid endarterectomy Cardiac catheter Allergies: Coded Allergies: No Known Allergies (Unverified , 01/11/17) Family History No family history of prostate cancer Social History Prior smoker; quit 30 years ago Physical Exam Vital Signs Date Time Temp Pulse Resp B/P Pulse Ox O2 Delivery O2 Flow Rate FiO2 01/20/17 07:42 93 21 01/20/17 07:00 97.5 80 18 132/62 93 01/20/17 07:00 63 01/20/17 06:20 68 01/20/17 05:00 76 01/20/17 04:00 79 01/20/17 03:00 98.4 79 18 125/58 97 01/20/17 03:00 79 01/20/17 02:00 82 01/20/17 01:00 68 01/20/17 00:00 73 01/19/17 23:00 69 01/19/17 23:00 98.1 69 16 105/51 98 01/19/17 22:00 78 01/19/17 21:00 75 01/19/17 20:00 80 01/19/17 19:22 96 21 01/19/17 19:00 74 01/19/17 19:00 98.2 74 16 116/47 96 01/19/17 18:01 73 01/19/17 17:01 86 01/19/17 16:01 86 01/19/17 15:45 98.9 85 18 115/52 97 01/19/17 15:00 80 01/19/17 14:00 78 01/19/17 13:01 75 01/19/17 12:01 88 01/19/17 11:01 98.2 93 18 110/46 94 01/19/17 11:00 90 01/19/17 10:01 102 Physical Exam GENERAL: This is a well-nourished, well-developed patient, in no apparent distress. SKIN: No rashes, ecchymoses or lesions. Cool and dry. HEAD: Atraumatic. Normocephalic. No temporal or scalp tenderness. EYES: Pupils equal round and reactive. Extraocular motions intact. No scleral icterus. No injection or drainage. ENT: Nose without bleeding, purulent drainage or septal hematoma. Throat without erythema, tonsillar hypertrophy or exudate. Uvula midline. Airway patent. NECK: Trachea midline. No JVD or lymphadenopathy. Supple, nontender, no meningeal signs. CARDIOVASCULAR: Regular rate and rhythm without murmurs, gallops, or rubs. RESPIRATORY: Clear to auscultation. Breath sounds equal bilaterally. No wheezes , rales, or rhonchi. GASTROINTESTINAL: Abdomen soft, non-tender, nondistended. No hepato-splenomegaly , or palpable masses. No guarding. GENITOURINARY: Robbins in place, gross hematuria noted without clots. MUSCULOSKELETAL: Extremities without clubbing, cyanosis, or edema. No joint tenderness, effusion, or edema noted. No calf tenderness. Negative Homans sign bilaterally. NEUROLOGICAL: Awake and alert. Cranial nerves II through XII intact. Motor and sensory grossly within normal limits. Five out of 5 muscle strength in all muscle groups. Normal speech. Laboratory Tests Test 01/20/17 05:37 White Blood Count 8.5 Red Blood Count 3.47 Hemoglobin 10.2 Hematocrit 30.8 Mean Corpuscular Volume 88.8 Mean Corpuscular Hemoglobin 29.6 Mean Corpuscular Hemoglobin 33.3 Concent Red Cell Distribution Width 13.4 Platelet Count 166 Mean Platelet Volume 10.3 Date/Time Procedure Status Source Growth 01/18/17 18:15 Urine Culture - Final Complete Urine Clean Catch NO GROWTH IN 48 HOURS. Result Diagram: 01/20/17 0537 01/18/17 0600 Imaging Last Impressions Chest X-Ray 01/18/17 0000 Signed Impressions: Service Date/Time: Wednesday, January 18, 2017 13:44 - CONCLUSION: Satisfactory appearance to the chest. Yogesh Ponce MD FACR Pancreas Ultrasound 01/13/17 0000 Signed Impressions: Service Date/Time: Friday, January 13, 2017 16:48 - CONCLUSION: 1. A cystic mass is confirmed within the expected region of the uncinate process of the pancreas measuring 3.1 x 2.4 x 2.9 cm sonographically and remains indeterminate. The main pancreatic duct is mildly dilated. 2. Mild hepatomegaly. Bandar Flores MD Chest CT 01/12/17 0000 Signed Impressions: Service Date/Time: Thursday, January 12, 2017 17:55 - CONCLUSION: 1. Coronary artery calcifications. 2. Infrarenal abdominal aortic aneurysm measuring 4.3 cm AP x 3.4 cm transverse dimension. 3. 2.6 x 2.3 cm cystic mass within the uncinate process of the pancreas. 4. 3.3 x 1.5 cm left adrenal nodule consistent with possible adrenal adenoma. 5. Minimal fibrotic scarring within the posterior lung bases bilaterally. 6. Degenerative changes and scoliosis of the thoracolumbar spine. Bandar Flores MD Assessment and Plan Assessment and Plan A 86-year-old male status post CABG 3 with urinary retention and gross hematuria. Patient with prior history of nocturia suggesting BPH. Recommend starting Flomax 0.4 mg by mouth daily at bedtime. Maintain Robbins for now. Void trial next week. Joshua Bob DO Jan 20, 2017 09:50
[2017-01-20] MEDS: TAMSULOSIN HCL 0.4 MG CAP PO SCH (10:34)
--- NOTE | 2017-01-20 12:39 | PD.CAR.PN ---
CVT Progress Note Subjective/Hospital Course: 86/ male hx of CAD , seen by Dr Hilario in Oct heart cath for multi vessel disease/ decided against surgery at that time 2 caring for his who has dementia . 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, ( right CEA Oct 2013) hx of CVA, PVD, AAA PFT FEV1 1.7/ mild obstructive disease CT Chest 01/12 coronary artery calcifications infrarenal AAA 4.3cmx 3.4cm 2.6x2.3cm cystic mass in pancreas ( US of abd and pancreas pending ) 3.3x1.5 left adrenal nodule 01/[address] Hilario spoke with pt/ tentatively scheduled for surgery on Thursday, PRU pending on 01/15 also pending US abd and pancreas/ will meet with family and pt again tomorrow afternoon on heparin gtt 01/14 pt had episode of chest pain last pm US pancreas noted recommend general surgery eval prior to CABG still tentatively scheduled for surgery on monday 01/15 appreciate General surgery in put/ outpt f/u for pancreatic cyst with MRI on room air, no chest pain last pm for OR in am 01/16 1. Urgent Clampless Off-pump Coronary Artery Bypass Grafting x 3 with left internal mammary artery (JENKINS) to left anterior descending (LAD), sequential reverse saphenous vein graft to OM1 and distal Left Circumflex artery 2. Transmyocardial Laser Revascularization 3. Left Leg Endoscopic Vein [place] 4. Epiaortic Ultrasound 5. Intraoperative Vein Mapping. 01/17 Doing well. Extubated and tolerating Transfer CIC Maintain CT Ambulate 01/18 Doing well Ambulating Maintain CT to drainage Rehab eval 01/19 Doing well Re-evaluate later today for possible CT removal versus tomorrow Ambulate Discharge planning 01/20 chest tube removed without difficulty pt to continue with indwelling jason cath, still has some hematuria / seen by Urology jason replaced /2 urinary retention eval for possible dc tomorrow Objective: GENERAL: SKIN: Warm and dry./ prevena dressing to chest / left leg incision intact HEAD: Normocephalic. EYES: No scleral icterus. No injection or drainage. NECK: Supple, trachea midline. No JVD or lymphadenopathy. CARDIOVASCULAR: Regular rate and rhythm without murmurs, gallops, or rubs. RESPIRATORY: slightly diminished in bases Breath sounds equal bilaterally. No accessory muscle use. GASTROINTESTINAL: Abdomen soft, non-tender, nondistended. MUSCULOSKELETAL: No cyanosis, or edema. BACK: Nontender without obvious deformity. No CVA tenderness. Vital Signs Date Time Temp Pulse Resp B/P Pulse Ox O2 Delivery O2 Flow Rate FiO2 01/20/17 10:00 94 01/20/17 09:00 88 01/20/17 08:00 80 01/20/17 07:42 93 21 01/20/17 07:00 97.5 80 18 132/62 93 01/20/17 07:00 63 01/20/17 06:20 68 01/20/17 05:00 76 01/20/17 04:00 79 01/20/17 03:00 98.4 79 18 125/58 97 01/20/17 03:00 79 01/20/17 02:00 82 01/20/17 01:00 68 01/20/17 00:00 73 01/19/17 23:00 69 01/19/17 23:00 98.1 69 16 105/51 98 01/19/17 22:00 78 01/19/17 21:00 75 01/19/17 20:00 80 01/19/17 19:22 96 21 01/19/17 19:00 74 01/19/17 19:00 98.2 74 16 116/47 96 01/19/17 18:01 73 01/19/17 17:01 86 01/19/17 16:01 86 01/19/17 15:45 98.9 85 18 115/52 97 01/19/17 15:00 80 01/19/17 14:00 78 01/19/17 13:01 75 Labs: Laboratory Tests Test 01/20/17 05:37 White Blood Count 8.5 TH/MM3 (4.0-11.0) Red Blood Count 3.47 MIL/MM3 (4.50-5.90) Hemoglobin 10.2 GM/DL (13.0-17.0) Hematocrit 30.8 % (39.0-51.0) Mean Corpuscular Volume 88.8 FL (80.0-100.0) Mean Corpuscular Hemoglobin 29.6 PG (27.0-34.0) Mean Corpuscular Hemoglobin 33.3 % Concent (32.0-36.0) Red Cell Distribution Width 13.4 % (11.6-17.2) Platelet Count 166 TH/MM3 (150-450) Mean Platelet Volume 10.3 FL (7.0-11.0) Result Diagram: 01/20/17 0537 01/18/17 0600 (1) Multi-vessel coronary artery stenosis Plan: for surgery on Thursday (2) Non-ST elevation myocardial infarction (NSTEMI) (3) Hypertension Plan: controlled (4) Hyperlipidemia Plan: on statin (5) Pancreatic mass Plan: outpt f/u with general surgery (6) S/P CABG x 3 Plan: on ASA, plavix, statin BB pulm toileting nebs, ezpap chest tube removed without difficulty ambulate eval for dc tomorrow (7) History of CVA (cerebrovascular accident) Plan: on plavix (8) Urinary retention Plan: keep jason cath in place/ pt to be discharge with leg bag/ f/u with Dr Joshua Bob next week Tata Aviles Jan 20, 2017 12:39
--- NOTE | 2017-01-20 12:41 | HHI.FF ---
Face to Face Verification Diagnosis: (1) Non-ST elevation myocardial infarction (NSTEMI) (2) Hypertension (3) Hyperlipidemia (4) History of CVA (cerebrovascular accident) (5) Pancreatic mass (6) Urinary retention (7) S/P CABG x 3 Physical Therapy Order: Evaluate and Treat Home Health Nursing Order: Medical education Wound care and dressing changes Nursing assessment with vital signs Instructions: Incentive spirometry Q1 hr x 10, while awake, also use acapella device hourly whole awake Sternal Breast Bone Precautions: NO pushing or pulling, ( pt must use sternal pillow to support chest with all activities and with coughing ( takes up to 3 months breast bone to heal ) Daily incision care: ok to shower daily, no tub bath. Wash all incisions with liquid dial soap, clean wash cloth to each site, rinse and pat dry. Observe for any signs of infection, such as drainage which is dark yellow, gonzalez, green or foul smelling. Immediately report to the surgeon any drainage from the chest incision, or legs, and for any abnormal drainage from the chest tube sites. Notify surgeon if any temp >101.5 degrees F. When specialty dressing removed/ or if you do not have one, continue to shower daily as above, then rinse and pat incision dry and paint with betadine daily x 5 days. Allow steri strips to fall off if you have any. Avoid lotions, creams, salves, oils, etc. for the first month F/U appointment: as per [place] instructions: PCP in 2 weeks, CV surgeon 2 weeks, Supervisor [employer] 3-4 weeks For any questions regarding incisions/ dressing / meds / post op care or above Symptoms, Thursday 8am-5pm Heart & Vascular Surgery Office ( Dr. Hilario & Dr. Quezada), After Hours / Nights (5pm -8am) Weekends and Holidays Please call [facility] Cardiac Intermediate Care Unit (CIC) Charge Nurse I have seen patient Naveen Cedeno on 01/20/17. My clinical findings support the need for the requested home health care services because: Deconditioned w/ increased weakness I certify that my clinical findings support that this patient is homebound because: Post-op weakness [facility] Tata Aviles Jan 20, 2017 12:41
[2017-01-20] MEDS ORDERED: WALKER WHEELS/F1 MIS (12:43)
[2017-01-20] MEDS ORDERED: MISC-163 (12:43)
[2017-01-20] MEDS: cefTRIAXone INJ 1,000 MG in SODIUM CHLORIDE 0.9% INJ 100 ML IV SCH (14:06)
--- NOTE | 2017-01-20 15:35 | HHI.PR ---
Subjective Remarks The pt was sitting up in a chair. He was hoping to go home tomorrow. He said the chest tube was out. He had a big bowel movement last night. Still with bloody urine. Discussed with nursing. Objective Vitals Vital Signs Date Time Temp Pulse Resp B/P Pulse Ox O2 Delivery O2 Flow Rate FiO2 01/20/17 14:00 95 01/20/17 13:00 80 01/20/17 12:00 81 01/20/17 11:00 76 01/20/17 11:00 97.6 71 18 135/60 96 01/20/17 10:00 94 01/20/17 09:00 88 01/20/17 08:00 80 01/20/17 07:42 93 21 01/20/17 07:00 97.5 80 18 132/62 93 01/20/17 07:00 63 01/20/17 06:20 68 01/20/17 05:00 76 01/20/17 04:00 79 01/20/17 03:00 98.4 79 18 125/58 97 01/20/17 03:00 79 01/20/17 02:00 82 01/20/17 01:00 68 01/20/17 00:00 73 01/19/17 23:00 69 01/19/17 23:00 98.1 69 16 105/51 98 01/19/17 22:00 78 01/19/17 21:00 75 01/19/17 20:00 80 01/19/17 19:22 96 21 01/19/17 19:00 74 01/19/17 19:00 98.2 74 16 116/47 96 01/19/17 18:01 73 01/19/17 17:01 86 01/19/17 16:01 86 01/19/17 15:45 98.9 85 18 115/52 97 I/O 01/19/17 01/19/17 01/19/17 01/20/17 01/20/17 01/20/17 07:00 15:00 23:00 07:00 15:00 23:00 Intake Total 480 ml 802 ml 480 ml Output Total 2880 ml 1280 ml 720 ml Balance -2400 ml -478 ml -240 ml Intake Oral 480 ml 702 ml 480 ml IV Total 100 ml Output Urine Total 2710 ml 1200 ml 700 ml Chest Tube Drainage Total 170 ml 80 ml 20 ml Bladder Scan Volume Amount 999 ml 999 ml # Bowel Movements 1 1 Result Diagram: 01/20/17 0537 01/18/17 0600 Imaging Last Impressions Chest X-Ray 01/18/17 0000 Signed Impressions: Service Date/Time: Wednesday, January 18, 2017 13:44 - CONCLUSION: Satisfactory appearance to the chest. Yogesh Ponce MD FACR Pancreas Ultrasound 01/13/17 0000 Signed Impressions: Service Date/Time: Friday, January 13, 2017 16:48 - CONCLUSION: 1. A cystic mass is confirmed within the expected region of the uncinate process of the pancreas measuring 3.1 x 2.4 x 2.9 cm sonographically and remains indeterminate. The main pancreatic duct is mildly dilated. 2. Mild hepatomegaly. Bandar Flores MD Chest CT 01/12/17 0000 Signed Impressions: Service Date/Time: Thursday, January 12, 2017 17:55 - CONCLUSION: 1. Coronary artery calcifications. 2. Infrarenal abdominal aortic aneurysm measuring 4.3 cm AP x 3.4 cm transverse dimension. 3. 2.6 x 2.3 cm cystic mass within the uncinate process of the pancreas. 4. 3.3 x 1.5 cm left adrenal nodule consistent with possible adrenal adenoma. 5. Minimal fibrotic scarring within the posterior lung bases bilaterally. 6. Degenerative changes and scoliosis of the thoracolumbar spine. Bandar Flores MD Objective Remarks GENERAL: Resting comfortably. SKIN: Warm and dry. HEAD: Normocephalic. EYES: No scleral icterus. No injection or drainage. NECK: Supple, trachea midline. No JVD or lymphadenopathy. CARDIOVASCULAR: Regular rate and rhythm. Grade 1 systolic murmur appreciated. RESPIRATORY: Breath sounds equal bilaterally. No accessory muscle use. No wheezing, rales or rhonchi. GASTROINTESTINAL: Abdomen soft, non-tender, nondistended. : Robbins with bloody urine. MUSCULOSKELETAL: No cyanosis, or edema. BACK: Nontender without obvious deformity. No CVA tenderness. PSYCH: Calm. Procedures CABG 01/16 Medications and IVs Current Medications Medications (Trade) Dose Ordered Sig/Munira Route Start Time Stop Time Status Last Admin (Norvasc) 2.5 mg DAILY PO 01/12/17 09:00 01/20/17 09:04 (Xanax) 0.25 mg Q6H PRN PO 01/11/17 12:30 (Lipitor) 20 mg DAILY PO 01/12/17 09:00 01/20/17 09:04 (Zofran Inj) 4 mg Q6H PRN IVP 01/11/17 12:45 01/16/17 23:28 (Tylenol) 650 mg Q6H PRN PO 01/11/17 12:45 (Narcan Inj) 0.4 mg UNSCH PRN IV 01/11/17 12:45 (Pill Splitter) 1 ea UNSCH PRN OTHER 01/11/17 13:15 (Colace) 100 mg BID PO 01/15/17 21:00 01/20/17 09:03 (Aspirin Chew) 81 mg DAILY PO 01/17/17 09:00 01/20/17 09:03 (Plavix) 75 mg DAILY PO 01/17/17 09:00 01/20/17 09:04 (Protonix) 40 mg DAILY@06 PO 01/17/17 06:00 01/20/17 05:23 (Wilson 5-325 Mg) 1 tab Q3H PRN PO 01/16/17 11:45 ([place] 5-325 Mg) 2 tab Q3H PRN PO 01/16/17 11:45 (Theragran M Tab) 1 tab DAILY PO 01/18/17 09:00 01/20/17 09:03 (Milk Of Magnesia Liq) 30 ml DAILY PO 01/18/17 09:00 01/19/17 08:40 (Fleets Enema (Adult)) 133 ml UNSCH PRN RECTAL 01/17/17 09:15 (D50w (Vial) Inj) 25 ml UNSCH PRN IV 01/17/17 09:15 (Glucagon Inj) 1 mg UNSCH PRN OTHER 01/17/17 09:15 (Lopressor) 25 mg Q8HR PO 01/18/17 14:00 01/20/17 14:05 Insulin Aspart 1 1 ACHS SQ 01/18/17 21:00 01/20/17 11:00 (Rocephin Inj/NS Inj) 100 ml @ 200 mls/hr Q24H IV 01/19/17 15:00 01/20/17 14:06 (Flomax) 0.4 mg DAILY PO 01/20/17 10:00 01/20/17 10:34 A/P Problem List: (1) Multi-vessel coronary artery stenosis ICD Code: I25.10 Status: Acute (2) Non-ST elevation myocardial infarction (NSTEMI) ICD Code: I21.4 Status: Acute (3) Hypertension ICD Code: I10 Status: Chronic (4) Chest pain ICD Code: R07.9 Status: Acute (5) Hyperlipidemia ICD Code: E78.5 Status: Chronic (6) History of CVA (cerebrovascular accident) ICD Code: Z86.73 Status: Chronic Assessment and Plan NSTEMI Recent diagnosis of multi vessel CAD October 2016 - Prox LAD, Prox LCx, Distal LCx, non-dominant RCA. Patient then refused bypass/intervention and now presents with non-ST elevation ID. Chest x-ray without any cardio pulmonary disease. Appreciate input from Cardiology and CT surgery. CT scan showed: Coronary artery calcifications; Infrarenal abdominal aortic aneurysm measuring 4.3 cm AP x 3.4 cm transverse dimension; 2.6 x 2.3 cm cystic mass within the uncinate process of the pancreas; 3.3 x 1.5 cm left adrenal nodule consistent with possible adrenal adenoma. Echo with normal EF. S/p CABG 01/16. Chest tube removed 01/20. - continue medication regimen and wound care per cardiology and cardiothoracic surgery. - telemetry. - incentive spirometry. - physical therapy. - possible d/c 01/20 per CTS. Pancreatic mass Noted on CT scan. Ultrasound showed: cystic mass is confirmed within the expected region of the uncinate process of the pancreas measuring 3.1 x 2.4 x 2.9 cm sonographically and remains indeterminate; the main pancreatic duct is mildly dilated. General surgery consult appreciated. - would recommend further work up with MRCP which may be obtained following surgery. Hematuria The pt had Robbins trauma and now has persistent hematuria. He also failed a voiding trial. Urology consult appreciated. CBC stable. - continue Robbins upon discharge and follow-up with urology as an outpt. - continue Flomax. Hypertension On pressors following surgery. Currently stable. - meds per CTS/ cardiology. Amiodarone has been d/c and Lopressor has been increased. Constipation The pt has not had a bowel movement in a few days. - Continue aggressive bowel regimen. - Suppository ordered 01/18. Resolved. Delirium The pt sees strange things when he closes his eyes. He feels shaky and has a poor appetite. He also has a leukocytosis. He is constipated. Improved 01/20. - bowel regimen. - avoid sedating meds. - frequent orientation. DVT prophylaxis: Per surgery. Discharge Planning Per CTS. Possible d/c in AM. Bk Jamison DO Jan 20, 2017 15:35
[2017-01-20] MEDS ORDERED: METO25TA3 PO (18:16)
[2017-01-20] MEDS ORDERED: LIPI20TA PO (18:16)
[2017-01-20] MEDS ORDERED: TAMS5CAP PO (18:16)
[2017-01-20] MEDS ORDERED: AMLO5 PO (18:16)
--- NOTE | 2017-01-20 18:16 | HHI.DCPOC ---
Discharge Care Plan Diagnosis: (1) Multi-vessel coronary artery stenosis (2) Urinary retention Your Health Problems Are: Difficulty with ADL Exercise Tolerance Goals to Promote Your Health * To prevent worsening of your condition and complications * To maintain your health at the optimal level Directions to Meet Your Goals Take your medications as prescribed Follow your dietary instruction Follow activity as directed Keep your appointments as scheduled Take your immunizations and boosters as scheduled If your symptoms worsen call your PCP, if no PCP go to Urgent Care Center or Emergency Room Smoking is Dangerous to Your Health. Avoid second hand smoke Call the 24-hour hour crisis hotline for domestic abuse at Luis Ledbetter MD Jan 20, 2017 18:16
[2017-01-21] VITALS (18 sets, daily range): BP systolic 119–146; BP diastolic 53–92; PULSE 72–90; RESP 16–18; TEMP 98–99; O2SAT 94–99
[2017-01-21] MEDS: METOPROLOL TARTRATE 25 MG TAB PO SCH ×2 (05:48→14:24)
[2017-01-21] MEDS: PANTOPRAZOLE SOD 40 MG DELAYED RELEASE TAB PO SCH (05:49)
[2017-01-21] MEDS: INSULIN ASPART SUPPLEMENTAL SCALE SQ SCH ×3 (06:28→16:00)
[2017-01-21] MEDS: MULTIVITAMINS/MINERALS THERAPEUTIC TAB PO SCH (08:42)
[2017-01-21] MEDS: DOCUSATE SODIUM 100 MG CAP PO SCH (08:42)
[2017-01-21] MEDS: ATORVASTATIN 20 MG TAB PO SCH (08:43)
[2017-01-21] MEDS: CLOPIDOGREL 75 MG TAB PO SCH (08:43)
[2017-01-21] MEDS: ASPIRIN 81 MG CHEW TAB PO SCH (08:43)
[2017-01-21] MEDS: amLODIPine BESYLATE 5 MG TAB PO SCH (08:44)
[2017-01-21] MEDS: TAMSULOSIN HCL 0.4 MG CAP PO SCH (08:44)
[2017-01-21] MEDS: MAGNESIUM HYDROXIDE SUSP 30 ML CUP PO SCH (08:44)
--- NOTE | 2017-01-21 09:37 | HHI.PR ---
Subjective Patient symptoms today Pt seen and examined. Feels well. Urine now clear. Objective Vital Signs Vital Signs Date Time Temp Pulse Resp B/P Pulse Ox O2 Delivery O2 Flow Rate FiO2 01/21/17 08:00 72 01/21/17 07:00 98.7 78 16 139/71 94 01/21/17 07:00 79 01/21/17 06:00 88 01/21/17 05:00 84 01/21/17 04:00 84 01/21/17 03:00 84 01/21/17 03:00 99.0 90 16 146/67 94 01/21/17 02:00 82 01/21/17 01:00 84 01/21/17 00:00 80 01/20/17 23:00 99.0 80 20 126/56 94 01/20/17 23:00 78 01/20/17 22:00 82 01/20/17 21:55 95 21 01/20/17 21:00 84 01/20/17 20:00 85 01/20/17 19:00 98.3 87 20 126/63 96 01/20/17 19:00 79 01/20/17 18:00 74 01/20/17 17:00 79 01/20/17 16:00 79 01/20/17 15:00 94 01/20/17 15:00 98.6 87 17 112/52 96 01/20/17 14:00 95 01/20/17 13:00 80 01/20/17 12:00 81 01/20/17 11:00 76 01/20/17 11:00 97.6 71 18 135/60 96 01/20/17 10:00 94 Result Diagram: 01/20/17 0537 01/18/17 0600 Objective Remarks Abd:soft,nt,nd Robbins: urine clear. Medications and IVs Current Medications Medications (Trade) Dose Ordered Sig/Munira Route Start Time Stop Time Status Last Admin (Norvasc) 2.5 mg DAILY PO 01/12/17 09:00 01/21/17 08:44 (Xanax) 0.25 mg Q6H PRN PO 01/11/17 12:30 (Lipitor) 20 mg DAILY PO 01/12/17 09:00 01/21/17 08:43 (Zofran Inj) 4 mg Q6H PRN IVP 01/11/17 12:45 01/16/17 23:28 (Tylenol) 650 mg Q6H PRN PO 01/11/17 12:45 (Narcan Inj) 0.4 mg UNSCH PRN IV 01/11/17 12:45 (Pill Splitter) 1 ea UNSCH PRN OTHER 01/11/17 13:15 (Colace) 100 mg BID PO 01/15/17 21:00 01/21/17 08:42 (Aspirin Chew) 81 mg DAILY PO 01/17/17 09:00 01/21/17 08:43 (Plavix) 75 mg DAILY PO 01/17/17 09:00 01/21/17 08:43 (Protonix) 40 mg DAILY@06 PO 01/17/17 06:00 01/21/17 05:49 ([place] 5-325 Mg) 1 tab Q3H PRN PO 01/16/17 11:45 ([place] 5-325 Mg) 2 tab Q3H PRN PO 01/16/17 11:45 (Theragran M Tab) 1 tab DAILY PO 01/18/17 09:00 01/21/17 08:42 (Milk Of Magnesia Liq) 30 ml DAILY PO 01/18/17 09:00 01/19/17 08:40 (Fleets Enema (Adult)) 133 ml UNSCH PRN RECTAL 01/17/17 09:15 (D50w (Vial) Inj) 25 ml UNSCH PRN IV 01/17/17 09:15 (Glucagon Inj) 1 mg UNSCH PRN OTHER 01/17/17 09:15 (Lopressor) 25 mg Q8HR PO 01/18/17 14:00 01/21/17 05:48 (NovoLOG SUPPLEMENTAL SCALE) 1 ACHS SQ 01/18/17 21:00 01/20/17 21:20 (Flomax) 0.4 mg DAILY PO 01/20/17 10:00 01/21/17 08:44 Assessment and Plan Assessment and Plan 86-year-old male status post CABG 3 with urinary retention and gross hematuria. Patient with prior history of nocturia suggesting BPH. Recommend starting Flomax 0.4 mg by mouth daily at bedtime. Maintain Robbins for now. Void trial next week. 01/21 86-year-old male status post CABG 3 with urinary retention and gross hematuria. Hematuria now has resolved Continue Flomax Void trial next week either at the office or at the rehab center Joshua Bob DO Jan 21, 2017 09:37
--- NOTE | 2017-01-21 10:05 | PD.CAR.PN ---
CVT Progress Note CVT: POD #: 5 Subjective/Hospital Course: 86/ male hx of CAD , seen by Dr Hilario in Oct heart cath for multi vessel disease/ decided against surgery at that time 11/20 caring for his who has dementia . 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, ( right CEA Oct 2013) hx of CVA, PVD, AAA PFT FEV1 1.7/ mild obstructive disease CT Chest 01/12 coronary artery calcifications infrarenal AAA 4.3cmx 3.4cm 2.6x2.3cm cystic mass in pancreas ( US of abd and pancreas pending ) 3.3x1.5 left adrenal nodule 01/[address] Hilario spoke with pt/ tentatively scheduled for surgery on Thursday, PRU pending on 01/15 also pending US abd and pancreas/ will meet with family and pt again tomorrow afternoon on heparin gtt 01/14 pt had episode of chest pain last pm US pancreas noted recommend general surgery eval prior to CABG still tentatively scheduled for surgery on monday 01/15 appreciate General surgery in put/ outpt f/u for pancreatic cyst with MRI on room air, no chest pain last pm for OR in am 01/16 1. Urgent Clampless Off-pump Coronary Artery Bypass Grafting x 3 with left internal mammary artery (JENKNIS) to left anterior descending (LAD), sequential reverse saphenous vein graft to OM1 and distal Left Circumflex artery 2. Transmyocardial Laser Revascularization 3. Left Leg Endoscopic Vein [place] 4. Epiaortic Ultrasound 5. Intraoperative Vein Mapping. 01/17 Doing well. Extubated and tolerating Transfer CIC Maintain CT Ambulate 01/18 Doing well Ambulating Maintain CT to drainage Rehab eval 01/19 Doing well Re-evaluate later today for possible CT removal versus tomorrow Ambulate Discharge planning 01/20 chest tube removed without difficulty pt to continue with indwelling jason cath, still has some hematuria / seen by Urology jason replaced 11/20 urinary retention eval for possible dc tomorrow 01/21 doing well, indwelling jason cath in place will remove prevena sternal dressing today ok to dc home today from CVS standpoint Objective: GENERAL: SKIN: Warm and dry.incision intact and well approximated to chest HEAD: Normocephalic. EYES: No scleral icterus. No injection or drainage. NECK: Supple, trachea midline. No JVD or lymphadenopathy. CARDIOVASCULAR: Regular rate and rhythm without murmurs, gallops, or rubs. RESPIRATORY: Breath sounds equal bilaterally. No accessory muscle use. GASTROINTESTINAL: Abdomen soft, non-tender, nondistended. MUSCULOSKELETAL: No cyanosis, or edema. BACK: Nontender without obvious deformity. No CVA tenderness. Vital Signs Date Time Temp Pulse Resp B/P Pulse Ox O2 Delivery O2 Flow Rate FiO2 01/21/17 08:00 72 01/21/17 07:00 98.7 78 16 139/71 94 01/21/17 07:00 79 01/21/17 06:00 88 01/21/17 05:00 84 01/21/17 04:00 84 01/21/17 03:00 84 01/21/17 03:00 99.0 90 16 146/67 94 01/21/17 02:00 82 01/21/17 01:00 84 01/21/17 00:00 80 01/20/17 23:00 99.0 80 20 126/56 94 01/20/17 23:00 78 01/20/17 22:00 82 01/20/17 21:55 95 21 01/20/17 21:00 84 01/20/17 20:00 85 01/20/17 19:00 98.3 87 20 126/63 96 01/20/17 19:00 79 01/20/17 18:00 74 01/20/17 17:00 79 01/20/17 16:00 79 01/20/17 15:00 94 01/20/17 15:00 98.6 87 17 112/52 96 01/20/17 14:00 95 01/20/17 13:00 80 01/20/17 12:00 81 01/20/17 11:00 76 01/20/17 11:00 97.6 71 18 135/60 96 Result Diagram: 01/20/17 0537 01/18/17 0600 (1) Multi-vessel coronary artery stenosis (2) Non-ST elevation myocardial infarction (NSTEMI) (3) S/P CABG x 3 Plan: on ASA, plavix, statin BB pulm toileting nebs, ezpap ambulate ok to dc today from CVS standpoint (4) Hyperlipidemia Plan: on statin (5) Hypertension Plan: controlled (6) Pancreatic mass Plan: outpt f/u with general surgery (7) History of CVA (cerebrovascular accident) Plan: on plavix (8) Urinary retention Plan: keep jason cath in place/ pt to be discharge with leg bag/ f/u with Dr Joshua Bob next week Tata Aviles Jan 21, 2017 10:05
--- NOTE | 2017-01-21 10:19 | HHI.PR ---
Subjective Remarks Follow-up CABG and dermatitis. Complains of surgical pain. Patient has rash in his bottom consistent with tinea. Discussed with RN and case management, patient will be discharged to [facility] Objective Vitals Vital Signs Date Time Temp Pulse Resp B/P Pulse Ox O2 Delivery O2 Flow Rate FiO2 01/21/17 08:00 72 01/21/17 07:00 98.7 78 16 139/71 94 01/21/17 07:00 79 01/21/17 06:00 88 01/21/17 05:00 84 01/21/17 04:00 84 01/21/17 03:00 84 01/21/17 03:00 99.0 90 16 146/67 94 01/21/17 02:00 82 01/21/17 01:00 84 01/21/17 00:00 80 01/20/17 23:00 99.0 80 20 126/56 94 01/20/17 23:00 78 01/20/17 22:00 82 01/20/17 21:55 95 21 01/20/17 21:00 84 01/20/17 20:00 85 01/20/17 19:00 98.3 87 20 126/63 96 01/20/17 19:00 79 01/20/17 18:00 74 01/20/17 17:00 79 01/20/17 16:00 79 01/20/17 15:00 94 01/20/17 15:00 98.6 87 17 112/52 96 01/20/17 14:00 95 01/20/17 13:00 80 01/20/17 12:00 81 01/20/17 11:00 76 01/20/17 11:00 97.6 71 18 135/60 96 I/O 01/20/17 01/20/17 01/20/17 01/21/17 01/21/17 01/21/17 07:00 15:00 23:00 07:00 15:00 23:00 Intake Total 480 ml 1500 ml 960 ml Output Total 720 ml 1175 ml 1450 ml Balance -240 ml 325 ml -490 ml Intake Oral 480 ml 1500 ml 960 ml Output Urine Total 700 ml 1175 ml 1450 ml Chest Tube Drainage Total 20 ml # Bowel Movements 1 Result Diagram: 01/20/17 0537 01/18/17 0600 Imaging Last Impressions Chest X-Ray 01/18/17 0000 Signed Impressions: Service Date/Time: Wednesday, January 18, 2017 13:44 - CONCLUSION: Satisfactory appearance to the chest. Yogesh Ponce MD FACR Pancreas Ultrasound 01/13/17 0000 Signed Impressions: Service Date/Time: Friday, January 13, 2017 16:48 - CONCLUSION: 1. A cystic mass is confirmed within the expected region of the uncinate process of the pancreas measuring 3.1 x 2.4 x 2.9 cm sonographically and remains indeterminate. The main pancreatic duct is mildly dilated. 2. Mild hepatomegaly. Bandar Flores MD Chest CT 01/12/17 0000 Signed Impressions: Service Date/Time: Thursday, January 12, 2017 17:55 - CONCLUSION: 1. Coronary artery calcifications. 2. Infrarenal abdominal aortic aneurysm measuring 4.3 cm AP x 3.4 cm transverse dimension. 3. 2.6 x 2.3 cm cystic mass within the uncinate process of the pancreas. 4. 3.3 x 1.5 cm left adrenal nodule consistent with possible adrenal adenoma. 5. Minimal fibrotic scarring within the posterior lung bases bilaterally. 6. Degenerative changes and scoliosis of the thoracolumbar spine. Bandar Flores MD Objective Remarks GENERAL: Resting comfortably. SKIN: Warm and dry. Dermatitis in the bilateral gluteal areas with skin breakdown in the left cheek HEAD: Normocephalic. EYES: No scleral icterus. No injection or drainage. NECK: Supple, trachea midline. No JVD or lymphadenopathy. CARDIOVASCULAR: Regular rate and rhythm. Grade 1 systolic murmur appreciated. RESPIRATORY: Breath sounds equal bilaterally. No accessory muscle use. No wheezing, rales or rhonchi. GASTROINTESTINAL: Abdomen soft, non-tender, nondistended. : Robbins with clear urine MUSCULOSKELETAL: No cyanosis, or edema. BACK: Nontender without obvious deformity. No CVA tenderness. PSYCH: Calm. Procedures CABG 01/16 A/P Problem List: (1) Multi-vessel coronary artery stenosis ICD Code: I25.10 Status: Acute (2) Non-ST elevation myocardial infarction (NSTEMI) ICD Code: I21.4 Status: Acute (3) Hypertension ICD Code: I10 Status: Chronic (4) Chest pain ICD Code: R07.9 Status: Acute (5) Hyperlipidemia ICD Code: E78.5 Status: Chronic (6) History of CVA (cerebrovascular accident) ICD Code: Z86.73 Status: Chronic Assessment and Plan NSTEMI Recent diagnosis of multi vessel CAD October 2016 - Prox LAD, Prox LCx, Distal LCx, non-dominant RCA. Patient then refused bypass/intervention and returned with non-ST elevation NH. Chest x-ray without any cardio pulmonary disease. Appreciate input from Cardiology and CT surgery. CT scan showed: Coronary artery calcifications; Infrarenal abdominal aortic aneurysm measuring 4.3 cm AP x 3.4 cm transverse dimension; 2.6 x 2.3 cm cystic mass within the uncinate process of the pancreas; 3.3 x 1.5 cm left adrenal nodule consistent with possible adrenal adenoma. Echo with normal EF. S/p CABG 01/16. Chest tube removed 01/20. - continue medication regimen and wound care per cardiology and cardiothoracic surgery. - telemetry. - incentive spirometry. - physical therapy. -Stable Pancreatic mass Noted on CT scan. Ultrasound showed: cystic mass is confirmed within the expected region of the uncinate process of the pancreas measuring 3.1 x 2.4 x 2.9 cm sonographically and remains indeterminate; the main pancreatic duct is mildly dilated. General surgery consult appreciated. - would recommend further work up with MRCP which may be obtained following surgery. Hematuria The pt had Robbins trauma and now has persistent hematuria. He also failed a voiding trial. Urology consult appreciated. CBC stable. - continue Robbins upon discharge and follow-up with urology as an outpt. - continue Flomax. Hypertension On pressors following surgery. Currently stable. - meds per CTS/ cardiology. Amiodarone has been d/c and Lopressor has been increased. Constipation The pt has not had a bowel movement in a few days. - Continue aggressive bowel regimen. - Suppository ordered 01/18. Resolved. Delirium The pt sees strange things when he closes his eyes. He feels shaky and has a poor appetite. He also has a leukocytosis. He is constipated. Improved 01/20. - bowel regimen. - avoid sedating meds. - frequent orientation. -Improved DVT prophylaxis: Per surgery. Patient ambulatory. SCD Luis Ledbetter MD Jan 21, 2017 10:19
[2017-01-21] MEDS ORDERED: NYST15T TOPICAL (10:21)
[2017-01-21] MEDS ORDERED: NYSTATIN 100,000 UNIT/GM CREAM 15 GM TOPICAL SCH (12:00)
--- NOTE | 2017-01-21 14:17 | HHI.DS ---
Discharge Summary Admission Date Jan 11, 2017 at 12:04 Discharge Date: Jan 21, 2017 Admitting Diagnosis NSTEMI, hypertension, hyperlipedemia. (1) Multi-vessel coronary artery stenosis ICD Code: I25.10 Diagnosis: Principal (2) Non-ST elevation myocardial infarction (NSTEMI) ICD Code: I21.4 Diagnosis: Principal (3) Hypertension ICD Code: I10 Diagnosis: Secondary (4) Chest pain ICD Code: R07.9 Diagnosis: Principal (5) Hyperlipidemia ICD Code: E78.5 Diagnosis: Secondary (6) History of CVA (cerebrovascular accident) ICD Code: Z86.73 Diagnosis: Secondary Procedures CABG 01/16 Brief History - From Admission 86-year-old male with history of recent diagnosis of multivessel coronary disease October 2016 who declined back pain bypass/intervention after further discussion with cardiothoracic surgery and he elected only for medical management was discharged home on Plavix, aspirin and Lopressor presents today to the ED for evaluation of intermittent substernal chest pain without any radiation however associated with shortness of breath and described as pressure- like and rated 5/10 in intensity which started initially on the night of Thursday to Thursday 2 relieved with nitroglycerin. However last night, patient has a total of 3 episodes again relieved with nitroglycerin but decided to come to the hospital for further evaluation. Patient states, this time around he will more likely will opt for surgery. He denies any GI bleed. CBC/BMP: 01/20/17 0537 01/18/17 0600 Significant Findings Laboratory Tests Test 01/18/17 01/19/17 01/20/17 18:15 06:00 05:37 Urine Turbidity HAZY (CLEAR) Urine Ketones 10 mg/dL (NEG) Urine Occult Blood MOD (NEG) Urine Leukocyte Esterase SMALL (NEG) Urine RBC 35 /hpf (0-3) Urine WBC 10 /hpf (0-5) Urine Mucus FEW /lpf (OCC) White Blood Count 11.4 TH/MM3 (4.0-11.0) Red Blood Count 3.57 MIL/MM3 3.47 MIL/MM3 (4.50-5.90) (4.50-5.90) Hemoglobin 10.7 GM/DL 10.2 GM/DL (13.0-17.0) (13.0-17.0) Hematocrit 31.7 % 30.8 % (39.0-51.0) (39.0-51.0) Neutrophils (%) (Auto) 85.9 % (16.0-70.0) Lymphocytes (%) (Auto) 4.4 % (9.0-44.0) Monocytes (%) (Auto) 9.4 % (0.0-8.0) Neutrophils # (Auto) 9.8 TH/MM3 (1.8-7.7) Lymphocytes # (Auto) 0.5 TH/MM3 (1.0-4.8) Monocytes # (Auto) 1.1 TH/MM3 (0-0.9) Imaging Last Impressions Chest X-Ray 01/18/17 0000 Signed Impressions: Service Date/Time: Wednesday, January 18, 2017 13:44 - CONCLUSION: Satisfactory appearance to the chest. Yogesh Ponce MD FACR Pancreas Ultrasound 01/13/17 0000 Signed Impressions: Service Date/Time: Friday, January 13, 2017 16:48 - CONCLUSION: 1. A cystic mass is confirmed within the expected region of the uncinate process of the pancreas measuring 3.1 x 2.4 x 2.9 cm sonographically and remains indeterminate. The main pancreatic duct is mildly dilated. 2. Mild hepatomegaly. Bandar Flores MD Chest CT 01/12/17 0000 Signed Impressions: Service Date/Time: Thursday, January 12, 2017 17:55 - CONCLUSION: 1. Coronary artery calcifications. 2. Infrarenal abdominal aortic aneurysm measuring 4.3 cm AP x 3.4 cm transverse dimension. 3. 2.6 x 2.3 cm cystic mass within the uncinate process of the pancreas. 4. 3.3 x 1.5 cm left adrenal nodule consistent with possible adrenal adenoma. 5. Minimal fibrotic scarring within the posterior lung bases bilaterally. 6. Degenerative changes and scoliosis of the thoracolumbar spine. Bandar Flores MD PE at Discharge GENERAL: Resting comfortably. SKIN: Warm and dry. Dermatitis in the bilateral gluteal areas with skin breakdown in the left cheek HEAD: Normocephalic. EYES: No scleral icterus. No injection or drainage. NECK: Supple, trachea midline. No JVD or lymphadenopathy. CARDIOVASCULAR: Regular rate and rhythm. Grade 1 systolic murmur appreciated. RESPIRATORY: Breath sounds equal bilaterally. No accessory muscle use. No wheezing, rales or rhonchi. GASTROINTESTINAL: Abdomen soft, non-tender, nondistended. : Robbins with clear urine MUSCULOSKELETAL: No cyanosis, or edema. BACK: Nontender without obvious deformity. No CVA tenderness. PSYCH: Calm. Hospital Course NSTEMI Recent diagnosis of multi vessel CAD October 2016 - Prox LAD, Prox LCx, Distal LCx, non-dominant RCA. Patient then refused bypass/intervention and returned with non-ST elevation TN. Chest x-ray without any cardio pulmonary disease. Appreciate input from Cardiology and CT surgery. CT scan showed: Coronary artery calcifications; Infrarenal abdominal aortic aneurysm measuring 4.3 cm AP x 3.4 cm transverse dimension; 2.6 x 2.3 cm cystic mass within the uncinate process of the pancreas; 3.3 x 1.5 cm left adrenal nodule consistent with possible adrenal adenoma. Echo with normal EF. S/p CABG 01/16. Chest tube removed 01/20. - continue medication regimen and wound care per cardiology and cardiothoracic surgery. - telemetry. - incentive spirometry. - physical therapy. -Stable Pancreatic mass Noted on CT scan. Ultrasound showed: cystic mass is confirmed within the expected region of the uncinate process of the pancreas measuring 3.1 x 2.4 x 2.9 cm sonographically and remains indeterminate; the main pancreatic duct is mildly dilated. General surgery consult appreciated. - would recommend further work up with MRCP which may be obtained following surgery. Hematuria The pt had Robbins trauma and now has persistent hematuria. He also failed a voiding trial. Urology consult appreciated. CBC stable. - continue Robbins upon discharge and follow-up with urology as an outpt. - continue Flomax. Hypertension On pressors following surgery. Currently stable. - meds per CTS/ cardiology. Amiodarone has been d/c and Lopressor has been increased. Constipation The pt has not had a bowel movement in a few days. - Continue aggressive bowel regimen. - Suppository ordered 01/18. Resolved. Delirium The pt sees strange things when he closes his eyes. He feels shaky and has a poor appetite. He also has a leukocytosis. He is constipated. Improved /4. - bowel regimen. - avoid sedating meds. - frequent orientation. -Improved DVT prophylaxis: Per surgery. Patient ambulatory. SCD Pt Condition on Discharge: Stable Discharge Disposition: Discharge to SNF Discharge Time: > 30 minutes Discharge Instructions DIET: Follow Instructions for: Heart Healthy Diet Activities you can perform: Regular-No Restrictions Activities to Avoid: Driving Follow up Referrals: Appointment for Follow Up Appointment for Follow Up Cardiology @ [facility] with Asaf Larsen MD PCP Follow-up with Do Zacarias Michael MD Surgical with Ramonita Hilario MD Surgical - 4 Weeks @ [facility]Trauma with Hany Cordero MD Vascular Surgery @ Vascular Surgery with Jim Anton DO New Medications: 3-in-1 Bedside Toilet (3-in-1 Bedside Toilet) 1 Mis Mis 1 EA .ROUTE DIRECTED #1 EA Nystatin Topical (Nystatin Topical) 100,000 unit/gm Cream 1 APPLIC TOPICAL Q6HR Infection #30 Ref 0 GM Walker with Front Wheels (Walker with Front Wheels) 1 Mis Mis 1 EA .ROUTE DIRECTED #1 Ref 0 EA Amlodipine (Norvasc) 5 Mg Tab 2.5 MG PO DAILY Blood Pressure Management #30 TAB Atorvastatin (Lipitor) 20 Mg Tab 20 MG PO DAILY Cholesterol Management #30 TAB Metoprolol Tartrate (Metoprolol Tartrate) 25 Mg Tab 25 MG PO Q8HR Regulate Heart Beat #90 TAB Tamsulosin (Flomax) 0.4 Mg Cap 0.4 MG PO DAILY Manage Prostate Problems #30 CAP Continued Medications: Aspirin (Aspirin) 81 Mg Chew 81 MG CHEW DAILY cad Days 30 Ref 0 TAB Atorvastatin (Atorvastatin) 20 Mg Tab 20 MG PO HS Cholesterol Management #30 Ref 0 TAB Clopidogrel (Plavix) 75 Mg Tab 75 MG PO DAILY Blood Clot Prevention #30 Ref 0 TAB Luis Ledbetter MD Jan 21, 2017 14:17
[2017-02-10] MEDS ORDERED: BACT800T5 PO (10:02)
[2017-02-10] MEDS ORDERED: TAMS5CAP PO (10:03)
[2017-03-02] MEDS ORDERED: TAMS5CAP PO (12:03)
[2017-03-02] MEDS ORDERED: BETH25TA2 PO (12:03)
== END 2017-01-21 18:30 | DRG 229 ==
LOC: NEPE 08:52 → NEDA 12:04 → HCIS 17:16 → HCVR 01-16 12:13 → HCIN 01-17 14:30
PROVIDERS: ADMIT Internal Medicine; ATTEND Internal Medicine
PROC: 021109W Bypass Coronary Artery, Two Arteries from Aorta with Autologous Venous Tissue, Open Approach (ICD-10-PCS; 2017-01-16)
PROC: 06BQ4ZZ Excision of Left Saphenous Vein, Percutaneous Endoscopic Approach (ICD-10-PCS; 2017-01-16)
PROC: B24BZZZ Ultrasonography of Heart with Aorta (ICD-10-PCS; 2017-01-16)
PROC: 02100Z9 Bypass Coronary Artery, One Artery from Left Internal Mammary, Open Approach (ICD-10-PCS; principal; 2017-01-16 06:58)
PROC: 02Q Heart and Great Vessels, Repair (ICD-10-PCS; 2017-01-16 06:58)
PROC: 0T9B70Z Drainage of Bladder with Drainage Device, Via Natural or Artificial Opening (ICD-10-PCS; 2017-01-19)
DX: I21.4 Non-ST elevation (NSTEMI) myocardial infarction (principal); N02.9 Recurrent and persistent hematuria with unspecified morphologic changes; I73.9 Peripheral vascular disease, unspecified; I10 Essential (primary) hypertension; D35.02 Benign neoplasm of left adrenal gland; I25.110 Atherosclerotic heart disease of native coronary artery with unstable angina pectoris; B35.9 Dermatophytosis, unspecified; I70.0 Atherosclerosis of aorta; E78.5 Hyperlipidemia, unspecified; I71.4 Abdominal aortic aneurysm, without rupture; H91.90 Unspecified hearing loss, unspecified ear; K86.9 Disease of pancreas, unspecified; R35.1 Nocturia; R33.9 Retention of urine, unspecified; R41.0 Disorientation, unspecified; K59.00 Constipation, unspecified; Z79.82 Long term (current) use of aspirin; Z79.899 Other long term (current) drug therapy; Z86.73 Personal history of transient ischemic attack (TIA), and cerebral infarction without residual deficits; Z87.891 Personal history of nicotine dependence
CPT/HCPCS: 71010; 71250; 76705; 76937; 80048; 80053; 81001; 82378; 82550; 82948; 83036; 83735; 84484; 85014; 85025; 85027; 85576; 85610; 85730; 86301; 86850; 86900; 86901; 86920; 87086; 87641; 93005; 93306; 93318; 94002; 94150; 94640; 94664; 94667; 94668; C1768; J0131; J0171; J0690; J0696; J1644; J1815; J2250; J2270; J2370; J2405; J2440; J2720; J3010; J3370; J3475; J3480; J7050; J7120